=== PATIENT | female | born 1955 | race Caucasian/White ===

== ENCOUNTER 2025-06-29 14:07 | Inpatient (IN) ==
--- NOTE | 2025-06-29 14:30 | Emergency Department Note ---
Impression & Plan Pneumonia, Multiple falls, ESRD (end stage renal disease) on dialysis ED Provider Note NAME: GUANAKO TROTTER AGE: 70 SEX: F : 1955 ARRIVES VIA: Ambulance INFORMANT: Patient ED PROVIDER(S): Tree Rodriguez MD CHIEF COMPLAINT: Weakness PLAN: Disposition: Admit MEDICAL DECISION MAKING: The patient is a pleasant 70-year-old woman with a past medical history of mild cognitive impairment, ESRD on hemodialysis, type 2 diabetes, parkinsonism who presents to the emergency department via EMS from her dialysis center after completing dialysis and being unable to ambulate. The patient presents in the setting of being seen in [facility] emergency department last night for a fall where she had imaging that reportedly demonstrated a compression fracture but presumably not significant enough to require hospitalization and the patient was discharged to go to her scheduled dialysis in the morning. Per staff the patient was incontinent of urinem. The patient is a poor historian but reports that she has not been able to ambulate well for some time. Her sister did arrive and further explained that the patient had recently been admitted to rehab where she was walking 200 feet with a walker without assistance but had to finish rehab early due to insurance issues and since being home a week or so ago has declined and has had several falls. On evaluation the patient is no distress, afebrile with stable vital signs. She appears clinically dry. She did eventually have a fever of 39.4. She demonstrates masked facies. She exhibits slow motor movements and generalized weakness without focal extremity weakness. Head is atraumatic. No midline CTL spine tenderness to palpation or step-offs. EKG without overt acute ischemia. CXR small left pleural effusion and associated consolidation however better characterized on CT imaging demonstrates per my personal preliminary review/interpretation. WBC 25K with neutrophilia and left shift. H/H 7.9/24.7 without recent for comparison. Chemistry without metabolic acidosis. Creatinine 2.4 in setting of end-stage renal disease on dialysis. Lactic acid 1.6, within normal limits. Electrolytes without significant abnormalities. LFTs unremarkable. Initial high-sensitivity 103, nonspecific with repeat 101, stable and in the setting of the patient's end-stage renal disease. Lipase is not elevated. Procalcitonin is elevated at 34.9. UA without evidence of infection. CT of the head, C-spine, chest abdomen pelvis were obtained. Nondisplaced right 9th and 10th rib fractures are noted. No associated hemo or pneumothorax. Bilateral pleural effusions and associated consolidation consistent with pneumonia is seen. Blood cultures were obtained and empiric treatment issued with IV Zosyn and vancomycin. Given the patient's generalized weakness where she is unable to function at home in the setting of her pneumonia patient was referred to the hospitalist service for further management. Case was discussed with KULWINDER Carrington hospitalist, who will evaluate the patient for admission. Further management per admitting team. Triage Nursing notes reviewed and agree them. Prior/external medical records reviewed Vital Signs: reviewed Differential diagnosis: Infection, dehydration, metabolic abnormality, hypo/hyperglycemia, electrolyte disturbance, anemia, hypoxia, cardiac sources, intracerebral event, toxicologic, neurologic, as well as other pathologies. ER treatment provided: See below. Diagnostics interpreted by me: ECG: Normal sinus rhythm, 82 bpm, ST and T wave abnormality, no overt ST elevation or depression, QTc 457, QRS 74. Cardiac Monitoring: An order for continuous cardiac monitoring was placed and demonstrated Normal sinus rhythm, 82 bpm, no ectopy. Laboratory studies: See below Imaging studies: See below Consultation(s): Case was discussed with KULWINDER Carrington hospitalist, who will evaluate the patient for admission. HPI: Per MDM. ROS: See above HPI for pertinent positives & negatives. A total of 10 systems reviewed and were otherwise negative. VITALS:See Below PHYSICAL EXAMINATION: GENERAL: Awake, alert, fatigued/chronically ill-appearing, in no distress HENT: Normocephalic, atraumatic. Oropharynx with dry mucous membranes and otherwise unremarkable. EYES: Normal conjunctiva. Sclera non-icteric. EOMI. No nystamgus. PEARRL. NECK: Supple. No nuchal rigidity. FROM. No JVD. RESPIRATORY: Clear to auscultation. CARDIAC: Regular rate, normal rhythm. Extremities warm and well perfused. Pulses equal. ABDOMEN: Soft, non-distended. No tenderness to palpation. No rebound or guarding. No masses. MUSCULOSKELETAL: Chest examination reveals no tenderness. The back is symmetrical on inspection without obvious abnormality. There is no CVA tenderness to palpation. No joint edema. LOWER EXTREMITIES: Calves are equal size bilaterally and non-tender. No edema. No discoloration. NEURO: Masked facies. Mild confusion. Slow motor movements. Generalized weakness without focal sensory or motor deficits noted. SKIN: No rash or jaundice noted. Tree Rodriguez MD Past Med/Surg History Problem List (Updated 06/30/25 @ 17:55 by Tree Rodriguez MD) Ambulatory dysfunction Anemia due to chronic kidney disease Pneumonia (Acute) B12 deficiency Decreased range of motion of spine Gait disturbance Parkinsonism Cervical spine pain Diabetic retinopathy associated with type 2 diabetes mellitus Elevated TSH ESRD (end stage renal disease) on dialysis (Acute) CAD (coronary artery disease) Diabetes mellitus with insulin therapy Multiple falls (Acute) Memory loss H/O insulin dependent diabetes mellitus Peripheral neuropathy Medical History H/O fracture of hip Status post fall Iron deficiency Anemia H/O: CVA (cerebrovascular accident) 2016 COVID-19 Surgical History Status post hip surgery Right History of ankle surgery History of appendectomy Family History Mother , age 75 Diabetes Colorectal cancer Father , age 82 Heart disease Diabetes Coronary heart disease Brother Heart disease Social History Smoking Status: Unknown if ever smoked Hx Alcohol Use: No Hx Substance Use: No Preferred Language: Mohawk Communication Ability: Impaired Gis Administrator Required: No Beliefs That Will Affect Care: None marital status: Current Living Situation: Spouse current occupational status: retired 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 Verified 06/29/25 19:14 Home Meds Home Medications Medication Instructions Recorded Confirmed carvedilol 25 mg tablet 25 mg PO BID 08/12/24 06/29/25 clopidogrel 75 mg tablet (Plavix) 75 mg PO DAILY 08/12/24 06/29/25 ezetimibe 10 mg tablet (Zetia) 10 mg PO DAILY 08/12/24 06/29/25 famotidine 40 mg tablet 40 mg PO DAILY 08/12/24 06/29/25 rosuvastatin 10 mg tablet 10 mg PO DAILY 08/12/24 06/29/25 sertraline 50 mg tablet 50 mg PO DAILY 08/12/24 06/29/25 aspirin 81 mg tablet,delayed 81 mg PO DAILY 12/30/24 06/29/25 release (Adult Low Dose Aspirin) calcifediol 30 mcg capsule,24 30 mcg PO DAILY 12/30/24 06/29/25 hr,extended release (Rayaldee) sacubitril 24 mg-valsartan 26 mg 1 tab PO BID 12/30/24 06/29/25 tablet (Entresto) flash glucose sensor (FreeStyle 03/01/25 03/01/25 [place] 2 Sensor kit) amlodipine 2.5 mg tablet 2.5 mg PO DAILY 06/29/25 06/29/25 gabapentin 100 mg tablet 100 mg PO DAILY 06/29/25 06/29/25 insulin degludec 100 unit/mL (3 16 unit subcut DAILY 06/29/25 06/29/25 mL) subcutaneous pen (Tresiba FlexTouch U-100 insulin) vitamin B complex-vitamin C-folic 1 tab PO DAILY 06/29/25 06/29/25 acid 0.8 mg tablet (Karissa-Kassidy) Results & Data (ED) Vital Signs Vital Signs - 24 hr 06/29/25 14:27 06/29/25 14:27 06/29/25 14:54 Temperature 36.8 C Temperature Source Oral Pulse Rate 78 78 Pulse Rate [Apical] 78 Respiratory Rate 20 18 Respiratory Effort / Characteristics Non-Labored Non-Labored Respiratory Depth Normal Normal Blood Pressure 123/83 Blood Pressure [Left Arm] 123/83 Blood Pressure Mean 96 Blood Pressure Mean [Left Arm] 96 Pulse Oximetry 90 90 Oxygen Delivery Method Room Air Room Air Oxygen Flow Rate Sepsis Recent Fever Within 48 Hours No Sepsis New/Unexplained Change in Mental Status No Sepsis Action Taken by Nursing No Action Required 06/29/25 16:00 06/29/25 16:26 06/29/25 17:00 Temperature 39.4 C H Temperature Source Oral Pulse Rate Pulse Rate [Apical] 80 74 Respiratory Rate 20 16 Respiratory Effort / Characteristics Respiratory Depth Blood Pressure Blood Pressure [Left Arm] 121/83 120/45 L Blood Pressure Mean Blood Pressure Mean [Left Arm] 95 70 Pulse Oximetry 95 96 Oxygen Delivery Method Nasal Cannula Nasal Cannula Oxygen Flow Rate 2 2 Sepsis Recent Fever Within 48 Hours Sepsis New/Unexplained Change in Mental Status Sepsis Action Taken by Nursing Laboratory Data Attestation: I reviewed the patient's lab results. 06/30/25 05:46 06/30/25 05:46 Lab Results 06/29/25 06/29/25 Range/Units 14:50 15:58 WBC 25.02 H (4.8-10.8) K/ul RBC 2.62 L (4.20-5.40) M/uL Hgb 7.9 L (12.0-16.0) g/dl Hct 24.7 L (37.0-47.0) % MCV 94.3 (80.0-100.0) fL MCH 30.2 (25.0-34.0) pg MCHC 32.0 (32.0-36.0) g/dL RDW Std Deviation 45.2 (36.4-46.3) fL RDW Coeff of Evelyn 13.2 (11.5-14.5) % Plt Count 183 (130-400) K/uL MPV 10.7 (9.4-12.4) fL Immature Gran % (Auto) 1.4 % Neut % (Auto) 93.0 % Lymph % (Auto) 1.5 % Oxford % (Auto) 3.9 % Eos % (Auto) 0.0 % Baso % (Auto) 0.2 % Neut # (Auto) 23.28 H (1.40-6.50) K/uL Lymph # (Auto) 0.37 L (1.20-3.40) K/uL [place] # (Auto) 0.97 H (0.11-0.59) K/uL Eos # (Auto) 0.00 (0.00-0.50) K/uL Baso # (Auto) 0.05 (0.00-0.20) K/uL Immature Gran # (Auto) 0.35 H (0.01-0.20) K/uL Polychromasia 1+ PT 11.9 (9.0-12.0) Seconds INR 1.1 (0.9-1.1) Sodium 136 (136-145) mmol/L Potassium 4.1 (3.5-5.1) mmol/L Chloride 97 L (98-107) mmol/L Carbon Dioxide 29 (21-32) mmol/L Anion Gap 10 (3-11) BUN 13 (6-23) mg/dl Creatinine 2.41 H (0.6-1.2) mg/dl Est Cr Clr Drug Dosing 19.3 ml/min eGFR 20.96 BUN/Creatinine Ratio 5.4 L (10-20) Glucose 200 H (70-99(Fasting)) mg/dl Lactate 1.6 (0.4-2.0) mmol/L Calcium 8.7 (8.6-10.3) mg/dl Phosphorus 2.6 (2.5-4.9) mg/dl Magnesium 1.9 (1.7-2.4) mg/dl Total Bilirubin 0.8 (0.2-1.0) mg/dl Direct Bilirubin 0.2 (0-0.2) mg/dl AST 23 (13-39) U/L ALT 14 (7-52) U/L Alkaline Phosphatase 129 H (34-104) U/L Total Creatine Kinase 188 (26-192) U/L Troponin I High Sens 103.9 H* (0-14) pg/ml Total Protein 6.7 (6.0-8.3) gm/dl Albumin 3.6 (3.4-5.0) gm/dl Globulin 3.1 (2.5-4.0) gm/dl Albumin/Globulin Ratio 1.2 (0.9-2) Lipase < 3 L (11-82) U/L Procalcitonin 34.90 H (0-0.5) ng/ml Administered Medications Acetaminophen (Acetaminophen 325 Mg Tab) 650 mg PO Q6H PRN PRN Reason: Pain or Fever Stop: 07/30/25 03:42 Last Admin: 06/30/25 11:13 Dose: 650 mg Documented By: Admin: 06/30/25 03:54 Dose: 650 mg Documented By: SHAKA Aspirin (Aspirin 81 Mg Ectab) 81 mg PO DAILY [facility] Stop: 07/30/25 08:59 Last Admin: 06/30/25 08:37 Dose: 81 mg Documented By: PAULINE Carvedilol (Carvedilol 12.5 Mg Tab) 12.5 mg PO BIDM [facility] Stop: 07/29/25 20:59 Last Admin: 06/30/25 17:15 Dose: 12.5 mg Documented By: Admin: 06/30/25 08:37 Dose: 12.5 mg Documented By: Admin: 06/29/25 21:51 Dose: 12.5 mg Documented By: SHAKA Clopidogrel Bisulfate (Clopidogrel Bisulfate 75 Mg Tab) 75 mg PO DAILY [facility] Stop: 07/30/25 08:59 Last Admin: 06/30/25 08:37 Dose: 75 mg Documented By: PAULINE Ezetimibe (Ezetimibe 10 Mg Tab) 10 mg PO DAILY [facility] Stop: 07/30/25 08:59 Last Admin: 06/30/25 08:38 Dose: 10 mg Documented By: PAULINE Famotidine (Famotidine 40 Mg Tablet) 40 mg PO DAILY [facility] Stop: 07/30/25 08:59 Last Admin: 06/30/25 08:37 Dose: 40 mg Documented By: PAULINE Heparin Sodium (Porcine) (Heparin Sod 5,000 Unit/0.5 Ml Vial) 5,000 units SQ Q12 [facility] Stop: 07/30/25 08:59 Last Admin: 06/30/25 08:38 Dose: 5,000 units Documented By: PAULINE Piperacillin Sod/Tazobactam Sod (Zosyn) 4.5 gm in 100 mls @ 25 mls/hr IV Q12H [facility]; Protocol Stop: 07/07/25 04:59 Last Admin: 06/30/25 17:15 Dose: 25 mls/hr Documented By: Infusion: 06/30/25 08:29 Dose: Infused Documented By: Admin: 06/30/25 04:41 Dose: 25 mls/hr Documented By: SHAKA Insulin Aspart (Insulin Aspart Per Unit Charge) 0 units SC ACHS [facility] Stop: 07/29/25 20:59 Last Admin: 06/30/25 17:07 Dose: 5 units Documented By: PAULINE Co-signed By: IDALIA Admin: 06/30/25 12:35 Dose: 8 units Documented By: PAULINE Co-signed By: Admin: 06/30/25 08:34 Dose: 4 units Documented By: PAULINE Co-signed By: Admin: 06/29/25 21:51 Dose: 3 units Documented By: SHAKA Co-signed By: PEYTON Miscellaneous (Order Awaiting Action--Calcifediol Xr 30 Mcg Capsule,Extended Release 24 Hr)) 1 each N/A QS [facility] Stop: 07/30/25 00:00 Last Admin: 06/30/25 16:03 Dose: Not Given Documented By: Admin: 06/30/25 08:22 Dose: Not Given Documented By: Admin: 06/30/25 01:01 Dose: Not Given Documented By: SHAKA Multivitamins (Multivitamin Tab) 1 tab PO QAM [facility] Stop: 07/30/25 08:59 Last Admin: 06/30/25 08:38 Dose: 1 tab Documented By: PAULINE Rosuvastatin Calcium (Rosuvastatin Calcium 10 Mg Tab) 10 mg PO DAILY [facility] Stop: 07/30/25 08:59 Last Admin: 06/30/25 08:38 Dose: 10 mg Documented By: PAULINE Sacubitril/Valsartan (Valsartan/Sacubitril 26/24mg Tab) 1 tab PO BID [facility] Stop: 07/29/25 20:59 Last Admin: 06/30/25 08:37 Dose: 1 tab Documented By: Admin: 06/29/25 21:51 Dose: 1 tab Documented By: SHAKA Sertraline HCl (Sertraline Hcl 50 Mg Tablet) 50 mg PO DAILY [facility] Stop: 07/30/25 08:59 Last Admin: 06/30/25 08:37 Dose: 50 mg Documented By: PAULINE Discontinued Medications Acetaminophen (Acetaminophen 500 Mg Tab) 500 mg PO NOW STA Stop: 06/30/25 05:01 Last Admin: 06/30/25 05:18 Dose: 500 mg Documented By: SHAKA Piperacillin Sod/Tazobactam Sod (Zosyn) 4.5 gm in 100 mls @ 200 mls/hr IV NOW ONE; Protocol Stop: 06/29/25 16:16 Last Infusion: 06/29/25 18:34 Dose: Infused Documented By: zander Admin: 06/29/25 16:41 Dose: 200 mls/hr Documented By: CINDY Vancomycin HCl 1,750 mg/ (Sodium Chloride) 535 mls @ 200 mls/hr IV NOW ONE Stop: 06/29/25 18:27 Last Infusion: 06/29/25 19:56 Dose: Infused Documented By: kian Admin: 06/29/25 17:06 Dose: 200 mls/hr Documented By: CINDY Acetaminophen (Ofirmev) 1,000 mg in 100 mls @ 400 mls/hr IV NOW STA Stop: 06/29/25 16:41 Last Infusion: 06/29/25 16:55 Dose: Infused Documented By: Admin: 06/29/25 16:40 Dose: 400 mls/hr Documented By: CINDY Vancomycin HCl 500 mg/ Sodium (Chloride) 110 mls @ 200 mls/hr IV NOW ONE Stop: 06/30/25 12:17 Last Infusion: 06/30/25 13:12 Dose: Infused Documented By: Admin: 06/30/25 12:36 Dose: 200 mls/hr Documented By: PAULINE Insulin Glargine (Lantus Per Unit Charge) 12 units SC HS [facility] Stop: 07/29/25 20:59 Last Admin: 06/29/25 21:51 Dose: 12 units Documented By: SHAKA Co-signed By: PEYTON Levalbuterol HCl (Levalbuterol 1.25 Mg/3 Ml Neb) 1.25 mg NEB Q8R [facility] Stop: 07/29/25 22:59 Last Admin: 06/30/25 07:32 Dose: 1.25 mg Documented By: Admin: 06/29/25 22:08 Dose: 1.25 mg Documented By: TMP Imaging Data Radiologist's Impression: Chest X-Ray 06/29/25 14:28 XR chest 1V portable CLINICAL HISTORY: weakness, pain fall COMPARISON STUDY: None FINDINGS: Right dialysis catheter tip is just above the cavoatrial junction. Left cardiac loop recorder is present. There is moderate cardiomegaly without pulmonary vascular congestion. There is mild opacity at the left lung base with blunting of the left costophrenic angle. There is a possible nondisplaced fracture versus artifact laterally at the left mid rib. No pneumothorax seen. IMPRESSION: 1. Possible nondisplaced left rib fracture with no pneumothorax. 2. Small left pleural effusion and associated mild consolidation left lung base. ACT 112: Negative or not required by law. Electronically signed by: Inocencio Olsen M.D. 06/29/2025 3:13 PM Pelvis X-Ray 06/29/25 14:29 XR pelvis 1-2V routine CLINICAL HISTORY: pain fall COMPARISON: None FINDINGS: There is skinfold artifact. Right hip prosthesis shows no hardware complication. No fracture or dislocation seen at the pelvis or hips. IMPRESSION: No fracture seen. ACT 112: Negative or not required by law. Electronically signed by: Inocencio Olsen M.D. 06/29/2025 3:14 PM Abdomen/Pelvis CT 06/29/25 14:33 CT OF THE ABDOMEN AND PELVIS WITHOUT CONTRAST CLINICAL HISTORY: weakness, pain, fall COMPARISON STUDY: Pelvis radiograph performed earlier today. TECHNIQUE: Axial images of the abdomen and pelvis were obtained without IV contrast. Images were reviewed in the axial, sagittal, and coronal planes. Automated exposure control was utilized for the study. A dose lowering technique was utilized adhering to the principles of ALARA. FINDINGS: Please note that the chest CT will be reported separately. There are acute nondisplaced fractures of the lateral right ninth and 10th ribs. There is no pneumothorax. There are small bilateral pleural fusions. Moderate lower lobe and lingular opacities are present. There is a 1.9 cm nodular density within the lower outer quadrant of the right breast on image 32 of 344. Water attenuation 1.9 cm right breast lesion favors a cyst. Evaluation of the abdomen and pelvis is suboptimal on this unenhanced exam. No hemoperitoneum or pneumoperitoneum is present. There is no evidence for traumatic injury to the liver, spleen, adrenal glands, kidneys or pancreas. There is mild splenomegaly. There is a gallstone within the gallbladder. There is no convincing evidence for acute cholecystitis. Calcified fibroid is incidentally noted. No evidence for a bowel obstruction. No bowel wall thickening is identified on unenhanced exam. There are no fluid collections. Right hip arthroplasty is intact. No acute hip fractures are present. There are no fractures within the pelvis. L1 kyphoplasty is noted. There are no acute lumbar spine fractures. There is trace ascites within the pelvis. IMPRESSION: 1. Acute nondisplaced lateral right ninth and 10th rib fractures. 2. No acute traumatic findings within the abdomen or pelvis although evaluation suboptimal given lack of contrast. 3. Small bilateral pleural effusions. Bilateral lower lobe and lingular opacities favor pneumonia or aspiration pneumonia. Atelectasis could appear similar. 4. 1.9 cm nodular density within the lower outer quadrant right breast. This may represent fibroglandular tissue however a breast mass could appear similar. Nonemergent outpatient mammogram and ultrasound are recommended. 5. Cholelithiasis. 6. L1 kyphoplasty. No acute lumbar spine fractures. 7. Trace pelvic ascites. ACT 112: Positive. There are findings on this exam that require communication between the performing entity and the patient following Patient Test Result Information Act ([place] Act 112) guidelines. Electronically signed by: Brandyn Luna M.D. 06/29/2025 4:[address] 06/29/25 14:33 CT cervical spine wo con CLINICAL HISTORY: 70 years-old Female with weakness, pain, fall. Acute neck pain status post fall COMPARISON: CT head same, MR cervical spine 05/12/2020 TECHNIQUE: Multiple axial CT images of the cervical spine were obtained without contrast. A dose lowering technique was utilized adhering to the principles of ALARA. FINDINGS: Moderate multilevel degenerative disc disease and facet arthropathy redemonstrated. Chronic deformity noted involving the anterior arch C1. Developmental incomplete bony fusion involving the posterior arch of C1. There is mild kyphotic curvature centered at C4-C5. No acute fracture or subluxation identified. Multilevel neural foraminal narrowing, suboptimally assessed by CT technique. Partially imaged right IJ dual-lumen catheter. The cervical soft tissues appear unremarkable. No pneumothorax. Intralobular septal thickening at the lung apices suggestive of pulmonary edema. IMPRESSION: No acute cervical spine fracture or subluxation identified. ACT 112: Negative or not required by law. The above report was generated using voice recognition software. It may contain grammatical, syntax or spelling errors. Electronically signed by: Leonardo Burrell M.D. 06/29/2025 3:[address] 06/29/25 14:33 CT chest diagnostic wo con CT DOSE: [id number] CLINICAL HISTORY: weakness, pain, fall. TECHNIQUE: Multiaxial CT images of the chest were performed without contrast. A dose lowering technique was utilized adhering to the principles of ALARA. COMPARISON STUDY: None FINDINGS: There are trace dependent bilateral pleural effusions. There is adjacent patchy lower lobe consolidation consistent with pneumonia. There is no pneumothorax. No mediastinal hematoma. No pericardial effusion. There are diffuse coronary artery calcifications. There is osteopenia. There is an acute nondisplaced fracture laterally at the right ninth rib. No other acute fracture seen at the visualized osseous structures. There are a few old healed left-sided rib fractures. There is prior kyphoplasty at L1 with vertebral body height loss. IMPRESSION: 1. Acute fracture right ninth rib with no pneumothorax. 2. Bilateral lower lobe pneumonia with trace pleural effusions. ACT 112: Negative or not required by law. Electronically signed by: Inocencio Olsen M.D. 06/29/2025 3:[address] 06/29/25 14:33 CT head/brain wo con CLINICAL HISTORY: 70 years-old Female with weakness, pain, fall. Acute weakness with head injury status post fall TECHNIQUE: Multiple axial CT images of the head were obtained without contrast. A dose lowering technique was utilized adhering to the principles of ALARA. COMPARISON: CT cervical spine same day, brain MRI 05/12/2025 FINDINGS: No acute intracranial hemorrhage, midline shift, intracranial mass, hydrocephalus, territorial ischemia or abnormal extra-axial collection. Involutional changes with chronic microvascular ischemic disease. The calvarium is intact. Chronic deformity of the anterior arch C1. CT cervical spine dictated separately. The paranasal sinuses, mastoid air cells, and middle ear cavities are clear. IMPRESSION: No acute intracranial abnormality or calvarial fracture. ACT 112: Negative or not required by law. The above report was generated using voice recognition software. It may contain grammatical, syntax or spelling errors. Electronically signed by: Leonardo Burrell M.D. 06/29/2025 3:40 PM Discharge Plan Visit Data Chief Complaint: Fall Stated Complaint: fall ED Provider: Tree Rodriguez Discharge Problem: Pneumonia, Multiple falls, ESRD (end stage renal disease) on dialysis Patient Disposition: Admitted As Inpatient Condition: Serious Discharge Instructions Interventions: ED Discharge Assessment Last Done: 06/29/25 20:15 Discharge Problem: Pneumonia Qualifiers: Pneumonia type: due to unspecified organism Laterality: unspecified laterality Lung location: unspecified part of lung Qualified Code(s): J18.9 - Pneumonia, unspecified organism
--- NOTE | 2025-06-29 15:14 | XRay Report ---
XR chest 1V portable CLINICAL HISTORY: weakness, pain fall COMPARISON STUDY: None FINDINGS: Right dialysis catheter tip is just above the cavoatrial junction. Left cardiac loop record er is present. There is moderate cardiomegaly without pulmonary vascular congestion. There is mild op acity at the left lung base with blunting of the left costophrenic angle. There is a possible nondisp laced fracture versus artifact laterally at the left mid rib. No pneumothorax seen. IMPRESSION: 1. Possible nondisplaced left rib fracture with no pneumothorax. 2. Small left pleural effusion and associated mild consolidation left lung base. ACT 112: Negative or not required by law. Electronically signed by: Inocencio Olsen M.D. 06/29/2025 3:13 PM
--- NOTE | 2025-06-29 15:15 | XRay Report ---
XR pelvis 1-2V routine CLINICAL HISTORY: pain fall COMPARISON: None FINDINGS: There is skinfold artifact. Right hip prosthesis shows no hardware complication. No fractu re or dislocation seen at the pelvis or hips. IMPRESSION: No fracture seen. ACT 112: Negative or not required by law. Electronically signed by: Inocencio Olsen M.D. 06/29/2025 3:14 PM
[2025-06-29 15:25] LABS: Anion Gap 10 (3-11); Blood Urea Nitrogen 13 mg/dl (6-23); Calcium 8.7 mg/dl (8.6-10.3); Carbon Dioxide 29 mmol/L (21-32); Chloride 97 mmol/L (98-107); Creatinine Clr Calc Pharmacy 19.3 ml/min; Glucose 200 mg/dl (70-99(Fasting)); Potassium 4.1 mmol/L (3.5-5.1); Sodium 136 mmol/L (136-145)
[2025-06-29 15:28] LABS: Alanine Aminotransferase 14 U/L (7-52); Albumin Globulin Ratio 1.2 (0.9-2); Albumin Level 3.6 gm/dl (3.4-5.0); Alkaline Phosphatase 129 U/L (34-104); Bilirubin,Total 0.8 mg/dl (0.2-1.0); Creatine Kinase 188 U/L (26-192); Globulin 3.1 gm/dl (2.5-4.0); Lipase < 3 U/L (11-82); Magnesium 1.9 mg/dl (1.7-2.4); Total Protein 6.7 gm/dl (6.0-8.3)
--- NOTE | 2025-06-29 15:39 | CT Scan Report ---
CT chest diagnostic [facility] CT DOSE: 1673 CLINICAL HISTORY: weakness, pain, fall. TECHNIQUE: Multiaxial CT images of the chest were performed without contrast. A dose lowering techni que was utilized adhering to the principles of ALARA. COMPARISON STUDY: None FINDINGS: There are trace dependent bilateral pleural effusions. There is adjacent patchy lower lobe consolidation consistent with pneumonia. There is no pneumothorax. No mediastinal hematoma. No perica rdial effusion. There are diffuse coronary artery calcifications. There is osteopenia. There is an ac [place] nondisplaced fracture laterally at the right ninth rib. No other acute fracture seen at the visua lized osseous structures. There are a few old healed left-sided rib fractures. There is prior kyphopl asty at L1 with vertebral body height loss. IMPRESSION: 1. Acute fracture right ninth rib with no pneumothorax. 2. Bilateral lower lobe pneumonia with trace pleural effusions. ACT 112: Negative or not required by law. Electronically signed by: Inocencio Olsen M.D. 06/29/2025 3:37 PM
[2025-06-29 15:40] LABS: Hematocrit (blood only) 24.7 % (37.0-47.0); Hemoglobin 7.9 g/dl (12.0-16.0); INR 1.1 (0.9-1.1); Immature Granulocytes # (auto) 0.35 K/uL (0.01-0.20); Immature Granulocytes % (auto) 1.4 %; Mean Corpuscular Hemoglobin 30.2 pg (25.0-34.0); Mean Corpuscular Volume 94.3 fL (80.0-100.0); Platelet Count 183 K/uL (130-400); Polychromasia 1+; Prothrombin Time 11.9 Seconds (9.0-12.0); RDW Standard Deviation 45.2 fL (36.4-46.3); Red Blood Count 2.62 M/uL (4.20-5.40); White Blood Count 25.02 K/ul (4.8-10.8)
--- NOTE | 2025-06-29 15:41 | CT Scan Report ---
CT head/brain wo con CLINICAL HISTORY: 70 years-old Female with weakness, pain, fall. Acute weakness with head injury sta tus post fall TECHNIQUE: Multiple axial CT images of the head were obtained without contrast. A dose lowering tech nique was utilized adhering to the principles of ALARA. COMPARISON: CT cervical spine same day, brain MRI 05/12/2025 FINDINGS: No acute intracranial hemorrhage, midline shift, intracranial mass, hydrocephalus, territorial ischem ia or abnormal extra-axial collection. Involutional changes with chronic microvascular ischemic disea se. The calvarium is intact. Chronic deformity of the anterior arch C1. CT cervical spine dictated separa tely. The paranasal sinuses, mastoid air cells, and middle ear cavities are clear. IMPRESSION: No acute intracranial abnormality or calvarial fracture. ACT 112: Negative or not required by law. The above report was generated using voice recognition software. It may contain grammatical, syntax o r spelling errors. Electronically signed by: Leonardo Burrell M.D. 06/29/2025 3:40 PM
--- NOTE | 2025-06-29 15:44 | CT Scan Report ---
CT cervical spine wo con CLINICAL HISTORY: 70 years-old Female with weakness, pain, fall. Acute neck pain status post fall COMPARISON: CT head same, MR cervical spine 05/12/2020 TECHNIQUE: Multiple axial CT images of the cervical spine were obtained without contrast. A dose low ering technique was utilized adhering to the principles of ALARA. FINDINGS: Moderate multilevel degenerative disc disease and facet arthropathy redemonstrated. Chronic deformity noted involving the anterior arch C1. Developmental incomplete bony fusion involving the p osterior arch of C1. There is mild kyphotic curvature centered at C4-C5. No acute fracture or subluxa tion identified. Multilevel neural foraminal narrowing, suboptimally assessed by CT technique. Partially imaged right IJ dual-lumen catheter. The cervical soft tissues appear unremarkable. No pne umothorax. Intralobular septal thickening at the lung apices suggestive of pulmonary edema. IMPRESSION: No acute cervical spine fracture or subluxation identified. ACT 112: Negative or not required by law. The above report was generated using voice recognition software. It may contain grammatical, syntax o r spelling errors. Electronically signed by: Leonardo Burrell M.D. 06/29/2025 3:43 PM
[2025-06-29] MEDS ORDERED: VANCOMYCIN CONSULT ACTIVE PRN ×2 (15:47→16:55)
--- NOTE | 2025-06-29 16:11 | CT Scan Report ---
CT OF THE ABDOMEN AND PELVIS WITHOUT CONTRAST CLINICAL HISTORY: weakness, pain, fall COMPARISON STUDY: Pelvis radiograph performed earlier today. TECHNIQUE: Axial images of the abdomen and pelvis were obtained without IV contrast. Images were revi ewed in the axial, sagittal, and coronal planes. Automated exposure control was utilized for the bruna dy. A dose lowering technique was utilized adhering to the principles of ALARA. FINDINGS: Please note that the chest CT will be reported separately. There are acute nondisplaced fra ctures of the lateral right ninth and 10th ribs. There is no pneumothorax. There are small bilateral pleural fusions. Moderate lower lobe and lingular opacities are present. There is a 1.9 cm nodular de nsity within the lower outer quadrant of the right breast on image 32 of 344. Water attenuation 1.9 c m right breast lesion favors a cyst. Evaluation of the abdomen and pelvis is suboptimal on this unenh anced exam. No hemoperitoneum or pneumoperitoneum is present. There is no evidence for traumatic inju ry to the liver, spleen, adrenal glands, kidneys or pancreas. There is mild splenomegaly. There is a gallstone within the gallbladder. There is no convincing evidence for acute cholecystitis. Calcified fibroid is incidentally noted. No evidence for a bowel obstruction. No bowel wall thickening is ident ified on unenhanced exam. There are no fluid collections. Right hip arthroplasty is intact. No acute hip fractures are present. There are no fractures within the pelvis. L1 kyphoplasty is noted. There a re no acute lumbar spine fractures. There is trace ascites within the pelvis. IMPRESSION: 1. Acute nondisplaced lateral right ninth and 10th rib fractures. 2. No acute traumatic findings within the abdomen or pelvis although evaluation suboptimal given lack of contrast. 3. Small bilateral pleural effusions. Bilateral lower lobe and lingular opacities favor pneumonia or aspiration pneumonia. Atelectasis could appear similar. 4. 1.9 cm nodular density within the lower outer quadrant right breast. This may represent fibrogland ular tissue however a breast mass could appear similar. Nonemergent outpatient mammogram and ultrasou nd are recommended. 5. Cholelithiasis. 6. L1 kyphoplasty. No acute lumbar spine fractures. 7. Trace pelvic ascites. ACT 112: Positive. There are findings on this exam that require communication between the performing entity and the patient following Patient Test Result Information Act ([place] Act 112) guidelines. Electronically signed by: Brandyn Luna M.D. 06/29/2025 4:10 PM
[2025-06-29] MEDS: ACETAMINOPHEN 1,000 MG/100 ML VIAL IV STA (16:40)
[2025-06-29] MEDS: PIPERACILLIN/TAZOBACTAM 4.5 GM/100 ML BAG IV ONE (16:41)
[2025-06-29] MEDS: VANCOMYCIN HCL 1,750 MG in SODIUM CHLORIDE 0.9% 500 ML IV ONE (17:06)
--- NOTE | 2025-06-29 17:10 | History & Physical Report ---
Date of Service June 29, 2025 Assessment & Plan (1) Pneumonia: (2) CAD (coronary artery disease): (3) ESRD (end stage renal disease) on dialysis: (4) Diabetes mellitus with insulin therapy: (5) Memory loss: Plan Sepsis in a 70 yo female with Bilateral pneumonia. Patient was recetly discharged from outside facility. Patient will be placed on broad coverage: zosyn and vancomycin. Will obtain sputum culture and blood cultures. will admit to PCU. ESRD on dialysis Her does not know Nephrology group will consult [place] [facility] for dialysis CAD will resume home meds DM2 with hyperglycemia will place on carb ratio consult glycemic control History of Present Illness Chief Complaint: Weakness Primary Care Provider: Natalio Valero 70 yo female with PMH of ESRD on dialysis, CAD, and IDDM arrives for worsening generalized weakness. Patient is a poor historian and her sister Racheal helped provide information. Patient was recently discharged form outside facility for weakness and hypoglycemia. Patient spent a few weeks at rehab and was discharged a week ago. Patient has sustained multiple falls at home. Patient went to the [facility] ED for foot pain but was sent home. As patient continued to feel weak, patient was brought to our facility Allergies Allergy/AdvReac Type Severity Reaction Status Date / Time atorvastatin [From Lipitor] AdvReac . Verified 06/29/25 19:14 Home Medications Medication Instructions Recorded Confirmed Type carvedilol 25 mg tablet 25 mg PO BID 08/12/24 06/29/25 History clopidogrel 75 mg tablet (Plavix) 75 mg PO DAILY 08/12/24 06/29/25 History ezetimibe 10 mg tablet (Zetia) 10 mg PO DAILY 08/12/24 06/29/25 History famotidine 40 mg tablet 40 mg PO DAILY 08/12/24 06/29/25 History rosuvastatin 10 mg tablet 10 mg PO DAILY 08/12/24 06/29/25 History sertraline 50 mg tablet 50 mg PO DAILY 08/12/24 06/29/25 History aspirin 81 mg tablet,delayed 81 mg PO DAILY 12/30/24 06/29/25 History release (Adult Low Dose Aspirin) calcifediol 30 mcg capsule,24 30 mcg PO DAILY 12/30/24 06/29/25 History hr,extended release (Rayaldee) sacubitril 24 mg-valsartan 26 mg 1 tab PO BID 12/30/24 06/29/25 History tablet (Entresto) flash glucose sensor (FreeStyle 03/01/25 03/01/25 History Ju[place] 2 Sensor kit) amlodipine 2.5 mg tablet 2.5 mg PO DAILY 06/29/25 06/29/25 History gabapentin 100 mg tablet 100 mg PO DAILY 06/29/25 06/29/25 History insulin degludec 100 unit/mL (3 16 unit subcut DAILY 06/29/25 06/29/25 History mL) subcutaneous pen (Tresiba FlexTouch U-100 insulin) vitamin B complex-vitamin C-folic 1 tab PO DAILY 06/29/25 06/29/25 History acid 0.8 mg tablet (Karissa-Kassidy) Past Med/Surg History Problem List (Updated 06/30/25 @ 10:17 by Luiza Reeder MD) Ambulatory dysfunction Anemia due to chronic kidney disease Pneumonia (Acute) B12 deficiency Decreased range of motion of spine Gait disturbance Parkinsonism Cervical spine pain Diabetic retinopathy associated with type 2 diabetes mellitus Elevated TSH ESRD (end stage renal disease) on dialysis (Acute) CAD (coronary artery disease) Diabetes mellitus with insulin therapy Multiple falls (Acute) Memory loss H/O insulin dependent diabetes mellitus Peripheral neuropathy Medical History H/O fracture of hip Status post fall Iron deficiency Anemia H/O: CVA (cerebrovascular accident) 2016 COVID-19 Surgical History Status post hip surgery Right History of ankle surgery History of appendectomy Family History Mother , age 75 Diabetes Colorectal cancer Father , age 82 Heart disease Diabetes Coronary heart disease Brother Heart disease Social History Smoking Status: Unknown if ever smoked Hx Alcohol Use: No Hx Substance Use: No Preferred Language: Italian Communication Ability: Effective Nuclear Pharmacist Required: No Beliefs That Will Affect Care: None marital status: Current Living Situation: Spouse current occupational status: retired 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60, 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 Feels Safe at Home: Yes Assistive Devices: Glasses and Walker Review of Systems Review of Systems: Unobtainable due to cognitive status Physical Exam Constitutional: WD/WN, vitals as above + ill appearing and + frail appearing Eyes: PERRL, conjunctivae normal, anicteric sclerae ENMT: external ear and nose normal, oropharynx normal Neck: trachea midline, no thyromegaly Respiratory: + uses accessory muscles Auscultation : + rhonchi Cardiovascular: RRR, no murmur, no edema Gastrointestinal (Abdomen): normal bowel sounds, soft, nontender, no hepatosplenomegaly Musculoskeletal: no cyanosis or clubbing, extremities motor strength 5/5 Skin: no rashes, warm and dry Neurologic: PERRL, EOMI, accommodation nl, no face palsy, no dysarthria Psychiatric: Orientation: alert; + not oriented to person, + not oriented to place and + not oriented to time Lymphatic: no cervical or axillary lymphadenopathy Results & Data Results & Data Vital Signs (Past 12 Hours) Vital Signs Temp Pulse Pulse Resp BP BP Pulse Ox 06/29/25 16:26 39.4 C H 06/29/25 16:00 80 20 121/83 95 06/29/25 14:54 78 06/29/25 14:27 78 18 123/83 90 06/29/25 14:27 36.8 C 78 20 123/83 90 O2 Del Method O2 Flow Rate 06/29/25 16:26 06/29/25 16:00 Nasal Cannula 2 06/29/25 14:54 06/29/25 14:27 Room Air 06/29/25 14:27 Room Air PG Care Time/CCT Total # of Minutes Spent Total Time Spent with Patient: Total time spent is greater than 50% in coordination of care (as documented) at patient's floor/unit and/or counseling patient: Coding Level of Care Code 31880 INT INP/OBS CARE 3/75MIN Diagnoses Pneumonia J18.9 CAD (coronary artery disease) I25.10 ESRD (end stage renal disease) on dialysis N18.6; Z99.2 Diabetes mellitus with insulin therapy E11.9; Z79.4 Memory loss R41.3
[2025-06-29] MEDS ORDERED: PHARMACY GLYCEMIC MGMT CONSULT PRN (17:15)
[2025-06-29] MEDS ORDERED: GLUCOSE 10 TAB/TUBE PO PRN (17:16)
[2025-06-29] MEDS ORDERED: GLUCAGON FOR INJ 1 MG VIAL SQ PRN (17:16)
[2025-06-29] MEDS ORDERED: DEXTROSE 50% 50 ML SYRINGE IV PRN (17:16)
[2025-06-29] MEDS ORDERED: CARBOHYDRATES FOR HYPOGLYCEMIA PO PRN (17:16)
[2025-06-29] MEDS ORDERED: GLUCOSE 40% GEL 15 GM TUBE PO PRN (17:16)
[2025-06-29 17:44] LABS: Appearance Urine Cloudy (Clear); Glucose Urine UA Negative (Negative); RBC Urine Automated 0-2 /hpf (0-2); WBC Urine Automated 21-50 /hpf (0-5)
[2025-06-29 18:05] LABS: Bacteria Urine Automated 3+ (None Seen); Cast Urine Automated 0-2 /lpf (0-2)
--- NOTE | 2025-06-29 18:17 | Electrocardiogram Report ---
Test Reason : Blood Pressure : */* mmHG Vent. Rate : 82 BPM Atrial Rate : 82 BPM P-R Int : 124 ms QRS Dur : 74 ms QT Int : 392 ms P-R-T Axes : 61 57 212 degrees QTcB Int : 457 ms Normal sinus rhythm Abnormal ECG No previous ECGs available Confirmed by Ruben Marroquin ([id number]) on 06/29/2025 6:16:52 PM Referred By: REFERRED SELF Confirmed By: Ruben Marroquin
[2025-06-29] MEDS: VALSARTAN/SACUBITRIL 26/24MG TAB PO SCH (21:51)
[2025-06-29] MEDS: INSULIN ASPART PER UNIT CHARGE SC SCH (21:51)
[2025-06-29] MEDS: LANTUS PER UNIT CHARGE SC SCH (21:51)
[2025-06-29] MEDS: LEVALBUTEROL 1.25 MG/3 ML NEB NEB SCH (22:08)
[2025-06-30] MEDS: ACETAMINOPHEN 325 MG TAB PO PRN (03:54)
[2025-06-30] MEDS: PIPERACILLIN/TAZOBACTAM 4.5 GM/100 ML BAG IV SCH (04:41)
[2025-06-30] MEDS: ACETAMINOPHEN 500 MG TAB PO STA (05:18)
[2025-06-30 07:04] LABS: Anion Gap 11.0 (3-11); Blood Urea Nitrogen 22.0 mg/dl (6-23); Calcium 8.2 mg/dl (8.6-10.3); Carbon Dioxide 31.0 mmol/L (21-32); Chloride 96.0 mmol/L (98-107); Creatinine Clr Calc Pharmacy 12.1 ml/min; Glucose 174.0 mg/dl (70-99(Fasting)); Potassium 3.9 mmol/L (3.5-5.1); Sodium 138.0 mmol/L (136-145)
[2025-06-30 07:10] LABS: Hematocrit (blood only) 22.5 % (37.0-47.0); Hemoglobin 7.1 g/dl (12.0-16.0); Mean Corpuscular Hemoglobin 29.8 pg (25.0-34.0); Mean Corpuscular Volume 94.5 fL (80.0-100.0); Platelet Count 170 K/uL (130-400); RDW Standard Deviation 46.1 fL (36.4-46.3); Red Blood Count 2.38 M/uL (4.20-5.40); White Blood Count 12.72 K/ul (4.8-10.8)
[2025-06-30 07:31] LABS: Hemoglobin A1C 8.5 % (4.5-5.6)
[2025-06-30] MEDS: FAMOTIDINE 40 MG TABLET PO SCH (08:37)
[2025-06-30] MEDS: SERTRALINE HCL 50 MG TABLET PO SCH (08:37)
[2025-06-30] MEDS: ASPIRIN 81 MG ECTAB PO SCH (08:37)
[2025-06-30] MEDS: CLOPIDOGREL BISULFATE 75 MG TAB PO SCH (08:37)
[2025-06-30] MEDS: HEPARIN SOD 5,000 UNIT/0.5 ML VIAL SQ SCH (08:38)
[2025-06-30] MEDS: MULTIVITAMIN TAB PO SCH (08:38)
[2025-06-30] MEDS: EZETIMIBE 10 MG TAB PO SCH (08:38)
[2025-06-30] MEDS: ROSUVASTATIN CALCIUM 10 MG TAB PO SCH (08:38)
--- NOTE | 2025-06-30 10:21 | Nephrology Consultation ---
Date of Consultation June 30, 2025 Assessment & Plan (1) ESRD (end stage renal disease) on dialysis: (2) Anemia due to chronic kidney disease: (3) Pneumonia: (4) Multiple falls: (5) Ambulatory dysfunction: (6) H/O insulin dependent diabetes mellitus: Plan 70-year-old woman with end-stage kidney disease on hemodialysis, hypertension, diabetes, peripheral vascular disease admitted to the hospital with difficulty with ambulation after repeated falls recently. Found to have bilateral pneumonia and pleural effusion, started empirically on vancomycin and Zosyn. ESKD secondary to microvascular disease with history of hypertension, diabetes, coronary artery disease and peripheral vascular disease, started on hemodialysis in 2023. She also has a right IJ tunneled dialysis catheter, waiting to be removed, right brachiocephalic AV fistula has been functioning well for dialysis recently. Dialysis at [facility], for 3 h. Blood pressure controlled, volume status acceptable. Hemoglobin dropped to 7.1. Electrolyte acceptable. --Monitor hemoglobin, will check iron study with next lab. -- Plan to keep on schedule for hemodialysis tomorrow -- Epogen with hemodialysis -- Right arm nephrology precaution, dose medications for eGFR less than 10 -- Continue on renal vitamins Thank you for allowing me to participate in your patient's care. It was a pleasure to see Mariza. History of Present Illness Reason for Consultation: ESKD on HD Attending Physician: Earle Singleton History of Present Illness Ms. Mariza Quezada past medical history significant for is a 70-year-old woman with end-stage kidney disease on hemodialysis, hypertension, diabetes, peripher al vascular disease admitted to the hospital with difficulty with ambulation after repeated falls recently. Nephrology consult was requested for management of hemodialysis while inpatient. EMR records were reviewed in detail during patient's visit. Mariza was brought to ED yesterday via EMS with difficulty with ambulation and back pain and history of repeated falls at home recently. She went to [facility] ED on 06/28/2025 after a fall at home. According to the report imaging there showed compression fracture but not significant enough to require any intervention or hospitalization and she was discharged home. Yesterday she went to [place] dialysis unit for her regular dialysis and had full dialysis treatment for 3 hours. However, after dialysis she was unable to get up or ambulate and has been having ongoing lower back pain. According to the reports she has been having difficulty with ambulation at home for quite some time and has been having repeated falls. Recently she was also at a rehab but still was Showed because of insurance issues and she went home but she continued to have those symptoms. Workup in ER showed otherwise stable vital sign. Lab was notable for leukocytosis and low hemoglobin at 7.1. Potassium was normal. LFTs were unremarkable. Troponins were slightly elevated but stable. Urinalysis showed 3+ proteinuria, microscopic hematuria and bacteriuria. Chest x-ray showed bilateral pleural effusion and lower lobe pneumonia. EKG with no acute ST-T changes. CT of the head, C-spine, C/A/P showed nondisplaced right 9th and 10th rib fractures. She was empirically started on Zosyn and vancomycin. Has complex past medical history including ESKD secondary to microvascular disease with history of hypertension, diabetes, coronary artery disease and peripheral vascular disease, started on hemodialysis in 2023. She also has a right IJ tunneled dialysis catheter, waiting to be removed, right brachiocephalic AV fistula has been functioning well for dialysis recently. D[facility] at [facility], for 3 h, primary monitoring specialist Dr. Arnold. She still voids several times a day. Coronary artery disease, had PCI before. Significant history of peripheral vascular disease with multiple intervention before. Type 2 diabetes associated with diabetic retinopathy. Mild cognitive impairment and memory loss as well as history of parkinsonism. She continues to have significant ongoing back pain. No shortness of breath or chest pain. Allergies Allergy/AdvReac Type Severity Reaction Status Date / Time atorvastatin [From Lipitor] AdvReac . Verified 06/29/25 19:14 Home Medications Medication Instructions Recorded Confirmed Type carvedilol 25 mg tablet 25 mg PO BID 08/12/24 06/29/25 History clopidogrel 75 mg tablet (Plavix) 75 mg PO DAILY 08/12/24 06/29/25 History ezetimibe 10 mg tablet (Zetia) 10 mg PO DAILY 08/12/24 06/29/25 History famotidine 40 mg tablet 40 mg PO DAILY 08/12/24 06/29/25 History rosuvastatin 10 mg tablet 10 mg PO DAILY 08/12/24 06/29/25 History sertraline 50 mg tablet 50 mg PO DAILY 08/12/24 06/29/25 History aspirin 81 mg tablet,delayed 81 mg PO DAILY 12/30/24 06/29/25 History release (Adult Low Dose Aspirin) calcifediol 30 mcg capsule,24 30 mcg PO DAILY 12/30/24 06/29/25 History hr,extended release (Rayaldee) sacubitril 24 mg-valsartan 26 mg 1 tab PO BID 12/30/24 06/29/25 History tablet (Entresto) flash glucose sensor (FreeStyle 03/01/25 03/01/25 History [place] 2 Sensor kit) amlodipine 2.5 mg tablet 2.5 mg PO DAILY 06/29/25 06/29/25 History gabapentin 100 mg tablet 100 mg PO DAILY 06/29/25 06/29/25 History insulin degludec 100 unit/mL (3 16 unit subcut DAILY 06/29/25 06/29/25 History mL) subcutaneous pen (Tresiba FlexTouch U-100 insulin) vitamin B complex-vitamin C-folic 1 tab PO DAILY 06/29/25 06/29/25 History acid 0.8 mg tablet (Karissa-Kassidy) Patient History Medical History H/O fracture of hip Status post fall Iron deficiency Anemia H/O: CVA (cerebrovascular accident) 2016 COVID-19 Surgical History Status post hip surgery Right History of ankle surgery History of appendectomy Family History Mother , age 75 Diabetes Colorectal cancer Father , age 82 Heart disease Diabetes Coronary heart disease Brother Heart disease Social History Smoking Status: Unknown if ever smoked Hx Alcohol Use: No Hx Substance Use: No Preferred Language: Belarusian Communication Ability: Effective 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 Physical Exam Constitutional: WD/WN, vitals as above no acute distress Eyes: + anicteric sclerae Respiratory: Auscultation: + diminished lung sounds and + crackles Cardiovascular: Rate/Rhythm: regular rate and regular rhythm Heart Sounds: normal S1 and normal S2 Extremities: + vascular access device (Rt IJ TDC) and + AV fistula (Rt you can do what he wants BC AVF) Gastrointestinal (Abdomen): Inspection/Auscultation: abdomen normal to inspection Percussion/Palpation: abdomen soft; abdomen nontender Skin: no rashes, warm and dry Neurologic: no focal motor deficits Psychiatric: Orientation: alert and oriented x 3 Affect: euthymic affect Results & Data Vital Signs (Past 12 Hours) Vital Signs Temp Pulse Pulse Resp BP Pulse Ox O2 Del Method 06/30/25 08:15 37.1 C 64 16 113/63 97 Nasal Cannula 06/30/25 07:32 67 16 96 Nasal Cannula 06/30/25 05:36 37.2 C 06/30/25 04:55 39.2 C H 06/30/25 03:24 38.4 C H 72 18 127/53 L 92 Nasal Cannula 06/29/25 23:54 37.0 C 70 18 126/51 L 95 Room Air 06/29/25 22:08 71 16 95 Nasal Cannula O2 Flow Rate 06/30/25 08:15 2 06/30/25 07:32 2 06/30/25 05:36 06/30/25 04:55 06/30/25 03:24 2.0 06/29/25 23:54 06/29/25 22:08 2 PG Care Time/CCT Total # of Minutes Spent Total Time Spent with Patient: Total time spent is greater than 50% in coordination of care (as documented) at patient's floor/unit and/or counseling patient: Coding Level of Care Code 94524 INT INP/OBS CARE 3/75MIN Diagnoses ESRD (end stage renal disease) on dialysis N18.6; Z99.2 Anemia due to chronic kidney disease N18.9; D63.1 Pneumonia J18.9 Multiple falls R29.6 Ambulatory dysfunction R26.2 H/O insulin dependent diabetes mellitus Z86.39
--- NOTE | 2025-06-30 10:47 | Pharmacy Report ---
Pharmacy Glycemic Short Note 2 - Date of Service June 30, 2025 - Glycemic Short BSG Results (Last 24 hours): 06/29/25 06/29/25 06/30/25 14:50 20:55 05:46 Glucose 200 H 174 H POC Glucose 221 H 06/30/25 07:18 Glucose POC Glucose 182 H OUTPATIENT ANTIDIABETIC REGIMEN: * Treisiba 16 units SQ HS * Humalog 3 units SQ with breakfast and lunch, 5 units with dinner * Patient's A1c = 8.5% today. * However, this result is likely somewhat unreliable in ESRD patients d/t interactions between the A1c analyzing technique and high levels of urea in ESRD, reduced RBC life span, iron deficiency anemia, and EPO administration. HbA1c > 7.5% in ESRD patient may overestimate the extent of hyperglycemia in ESRD patients. ASSESSMENT: * Pt is a 70 YOF admitted with bilateral pneumonia. History of ESRD on HD MWF and DM2 on insulin therapy at home. Pharmacy consulted to assist with inpatient glycemic management. * BSGs [phone]/dL since admission. Received 12 units of basal and 3 units of bolus insulin yesterday. * Diet ordered, receiving IV antibiotics. HD scheduled for tomorrow. * Increase basal to 14 units tonight given fasting BSG >180mg/dL. Tightened Novolog at lunch from 35/12 to 30/11 for improved prandial coverage. PLAN FOR INPATIENT GLYCEMIC CONTROL: * Hold outpatient oral diabetes medications * Basal insulin * Lantus 14 units SQ HS * Bolus insulin * NovoLog per scale ACHS or Q6hrs while NPO * Goal Range: Low 110 mg/dL - High 140 mg/dL * Correction Factor: 30 mg/dL/unit * Nutritional / Prandial insulin per carb ratio of 1 unit per 11 grams CHO consumed
[2025-06-30] MEDS ORDERED: LEVALBUTEROL 1.25 MG/3 ML NEB NEB PRN (11:30)
--- NOTE | 2025-06-30 12:10 | Pharmacy Report ---
Pharmacy PK ABX Note - Date of Service June 30, 2025 - Assessment and Plan Assessment 70 year old F receiving vancomycin and zosyn empirically for suspected bilateral pneumonia. Blood and urine cultures pending. MRSA nasal (+). ESRD on iHD (MWF outpatient) with dialysis planned for tomorrow. Pt does make residual urine per . Day #2 of antimicrobial therapy. Plan Vancomycin * Loading dose: 1750 mg IV x 1 * Given ESRD on iHD, will dose by levels * Random level this AM (~12.5h level), 19.8mcg/mL which is therapeutic and safe to re-dose given residual urine output and planned HD tomorrow. * Vancomycin 500mg IV X 1 supplemental dose now. Repeat random in AM, pre-HD level (target 15-20mcg/mL). Pharmacy will continue to follow and will adjust dose/frequency as necessary. Thank you.
[2025-06-30] MEDS: VANCOMYCIN 500 MG in NSS 100mL IV ONE (12:36)
[2025-06-30] MEDS: ALBUMIN 25% 25 GM/100 ML VIAL IV ONE (20:43)
[2025-06-30] MEDS: LANTUS PER UNIT CHARGE SC SCH (21:00)
--- NOTE | 2025-06-30 22:19 | Hospitalist Progress Note ---
Date of Service June 30, 2025 Assessment & Plan (1) Pneumonia: (2) CAD (coronary artery disease): (3) ESRD (end stage renal disease) on dialysis: (4) Diabetes mellitus with insulin therapy: (5) Memory loss: Plan Sepsis in a 70 yo female with Bilateral pneumonia. Patient was recetly discharged from outside facility. Patient will be placed on broad coverage: zosyn and vancomycin. obtained blood cultures. sputum cultures pending. will remain in PCU for now. WBC showing improvement. ESRD on dialysis Her does not know Nephrology group will consult [place] [facility] for dialysis CAD will resume home meds DM2 with hyperglycemia will place on carb ratio consult glycemic control Anemia of chronic disease hemoglobin dropped to 7.1 will monitor Admission and Anticipated Discharge Date Admission Date: June 29, 2025 Subjective Patient reports no new symptoms. Patient reports breathing much better. Physical Exam Constitutional: WD/WN, vitals as above + ill appearing and + frail appearing Eyes: PERRL, conjunctivae normal, anicteric sclerae ENMT: external ear and nose normal, oropharynx normal Neck: trachea midline, no thyromegaly Respiratory: + uses accessory muscles Auscultation : + rhonchi Cardiovascular: RRR, no murmur, no edema Gastrointestinal (Abdomen): normal bowel sounds, soft, nontender, no hepatosplenomegaly Musculoskeletal: no cyanosis or clubbing, extremities motor strength 5/5 Skin: no rashes, warm and dry Neurologic: PERRL, EOMI, accommodation nl, no face palsy, no dysarthria Psychiatric: Orientation: alert; + not oriented to person, + not oriented to place and + not oriented to time Lymphatic: no cervical or axillary lymphadenopathy Results & Data Results & Data Vital Signs (Past 12 Hours) Vital Signs Temp Pulse Resp BP Pulse Ox O2 Del Method O2 Flow Rate 06/30/25 20:32 102/43 L 06/30/25 20:26 37 C 06/30/25 15:33 36.9 C 59 L 17 110/52 L 96 Nasal Cannula 2 06/30/25 12:07 36.9 C 61 16 109/67 98 Nasal Cannula 2 06/30/25 11:32 Nasal Cannula 2 PG Care Time/CCT Total # of Minutes Spent Total Time Spent with Patient: Total time spent is greater than 50% in coordination of care (as documented) at patient's floor/unit and/or counseling patient: Coding Level of Care Code 54305 SUB INP/OBS CARE MIN Diagnoses Pneumonia J18.9 Laterality: unspecified laterality Lung location: unspecified part of lung Pneumonia type: due to unspecified organism CAD (coronary artery disease) I25.10 ESRD (end stage renal disease) on dialysis N18.6; Z99.2 Diabetes mellitus with insulin therapy E11.9; Z79.4 Memory loss R41.3 (1) Pneumonia Laterality: unspecified laterality Lung location: unspecified part of lung Pneumonia type: due to unspecified organism Qualified Code(s): J18.9 - Pneumonia, unspecified organism
[2025-07-01 06:42] LABS: Hematocrit (blood only) 21.5 % (37.0-47.0); Hemoglobin 6.9 g/dl (12.0-16.0); Mean Corpuscular Hemoglobin 30.5 pg (25.0-34.0); Mean Corpuscular Volume 95.1 fL (80.0-100.0); Platelet Count 159 K/uL (130-400); RDW Standard Deviation 46.9 fL (36.4-46.3); Red Blood Count 2.26 M/uL (4.20-5.40); White Blood Count 9.00 K/ul (4.8-10.8)
[2025-07-01 07:48] LABS: Albumin Level 3.0 gm/dl (3.4-5.0); Anion Gap 12 (3-11); Blood Urea Nitrogen 38 mg/dl (6-23); Calcium 7.9 mg/dl (8.6-10.3); Carbon Dioxide 30 mmol/L (21-32); Chloride 95 mmol/L (98-107); Creatinine Clr Calc Pharmacy 9.2 ml/min; Glucose 141 mg/dl (70-99(Fasting)); Iron 16 mcg/dl (35-150); Potassium 3.3 mmol/L (3.5-5.1); Sodium 137 mmol/L (136-145); Transferrin < 95 mg/dl (200-360)
[2025-07-01] MEDS: NEPHROCAPS PO SCH (08:20)
[2025-07-01] MEDS ORDERED: SODIUM CHLORIDE 0.9% 100 ML IV PRN (08:39)
[2025-07-01] MEDS: GABAPENTIN 100 MG CAP PO SCH (09:37)
[2025-07-01] MEDS: LIDOCAINE 4% CREAM 15 GM TUBE EXT PRN (09:50)
--- NOTE | 2025-07-01 10:11 | Nephrology Progress Note ---
Date of Service July 01, 2025 Assessment & Plan (1) ESRD (end stage renal disease) on dialysis: (2) Anemia due to chronic kidney disease: (3) Pneumonia: (4) Multiple falls: (5) Ambulatory dysfunction: (6) H/O insulin dependent diabetes mellitus: Plan 70-year-old woman with end-stage kidney disease on hemodialysis, hypertension, diabetes, peripheral vascular disease admitted to the hospital with difficulty with ambulation after repeated falls recently. Found to have bilateral pneumonia and pleural effusion, started empirically on vancomycin and Zosyn. ESKD secondary to microvascular disease with history of hypertension, diabetes, coronary artery disease and peripheral vascular disease, started on hemodialysis in 2023. She also has a right IJ tunneled dialysis catheter, waiting to be removed, right brachiocephalic AV fistula has been functioning well for dialysis recently. Dialysis at [facility], for 3 h. Blood pressure relatively low but asymptomatic, volume status acceptable although weight in EMr was 67.2 and EDW 65 but clinically no clear sign fo significant volume overload. Hemoglobin dropped to 6.9, Ferritin 2400. K 3.3. Phos 3.7 ---hemodialysis now with 3 K bath, adjust UF down if BP drops further -- 1 PRBC and Epogen with hemodialysis -- Right arm nephrology precaution, dose medications for eGFR less than 10 -- Continue on renal vitamins Admission and Anticipated Discharge Date Admission Date: June 29, 2025 Subjective Mariza was seen during HD, tolerating HD but BP has been relatively low. c/o severe pain in rt leg, Tylenol did not help. Hb dropped to 6.9. denies abdominal pain, BRBPR, hemoptysis. Review of Systems Review of Systems: Detail ROS was done and pertinent positives and negatives were mentioned above. Physical Exam Constitutional: WD/WN, vitals as above + acute distress (with pain in rt leg) Eyes: + anicteric sclerae Respiratory: Auscultation: + diminished lung sounds Cardiovascular: Rate/Rhythm: regular rate and regular rhythm Heart Sounds: normal S1 and normal S2 Extremities: + vascular access device (Rt IJ TDC) and + AV fistula (Rt BC AVF) Skin: + ulcer (ischemic ulcer left heel) Neurologic: no focal motor deficits Psychiatric: Orientation: alert and oriented x 3 Affect: euthymic affect Results & Data Vital Signs (Past 12 Hours) Vital Signs Temp Pulse Resp BP Pulse Ox O2 Del Method O2 Flow Rate 07/01/25 08:30 Nasal Cannula 2 07/01/25 07:53 37.0 C 82 23 159/104 H 90 Room Air 07/01/25 07:16 36.6 C 57 L 13 116/45 L 97 Nasal Cannula 2 07/01/25 04:55 36.9 C 07/01/25 03:29 37.7 C H 58 L 16 122/72 97 Nasal Cannula 2.0 06/30/25 23:55 Nasal Cannula 2 06/30/25 22:49 37.6 C H 59 L 18 112/46 L 96 Nasal Cannula 2 PG Care Time/CCT Total # of Minutes Spent Total Time Spent with Patient: Total time spent is greater than 50% in coordination of care (as documented) at patient's floor/unit and/or counseling patient: Coding Level of Care Code 01419 SUB INP/OBS CARE MIN Diagnoses ESRD (end stage renal disease) on dialysis N18.6; Z99.2 Anemia due to chronic kidney disease N18.9; D63.1 Pneumonia J18.9 Laterality: unspecified laterality Lung location: unspecified part of lung Pneumonia type: due to unspecified organism Multiple falls R29.6 Ambulatory dysfunction R26.2 H/O insulin dependent diabetes mellitus Z86.39 (3) Pneumonia Laterality: unspecified laterality Lung location: unspecified part of lung Pneumonia type: due to unspecified organism Qualified Code(s): J18.9 - Pneumonia, unspecified organism
[2025-07-01] MEDS: HYDROmorphone INJ 0.5 MG/0.5 ML SYR IV STA (10:39)
[2025-07-01] MEDS: EPOETIN ALFA 10,000 UNITS/ML VIAL IV SCH (12:18)
--- NOTE | 2025-07-01 13:28 | Pharmacy Report ---
Pharmacy Glycemic Short Note 2 - Date of Service July 01, 2025 - Glycemic Short BSG Results (Last 24 hours): 06/30/25 06/30/25 07/01/25 16:07 20:49 01:51 Glucose POC Glucose 135 H 110 H 90 07/01/25 07/01/25 07/01/25 05:33 07:22 11:58 Glucose 141 H POC Glucose 74 125 H OUTPATIENT ANTIDIABETIC REGIMEN: * Treisiba 16 units SC HS * Humalog 3 units SC with breakfast and lunch, 5 units with dinner * Patient's A1c = 8.5% today. * However, this result is likely somewhat unreliable in ESRD patients d/t interactions between the A1c analyzing technique and high levels of urea in ESRD, reduced RBC life span, iron deficiency anemia, and EPO administration. HbA1c > 7.5% in ESRD patient may overestimate the extent of hyperglycemia in ESRD patients. ASSESSMENT: 07/01: * Mariza received 31 units of insulin yesterday, 14 of which were basal. BSGs were: [phone] mg/dL. * Fasting BSG this AM was 74 mg/dL. This is well below goal. Will reduce basal insulin this evening to provide a maximum of 10 units per BSG check at bedtime. This would represent at least a 30% reduction in basal dose. * Given trend downward in postprandial BSGs yesterday, will loosen correction factor and carb ratio today. Want to prevent hypoglycemia. * Remains on Vanc and Zosyn. Tolerating T2DM diet. HD scheduled for 3 hours today. Next session to be Friday. 06/30: * Pt is a 70 YOF admitted with bilateral pneumonia. History of ESRD on HD MWF and DM2 on insulin therapy at home. Pharmacy consulted to assist with inpatient glycemic management. * BSGs [phone]/dL since admission. Received 12 units of basal and 3 units of bolus insulin yesterday. * Diet ordered, receiving IV antibiotics. HD scheduled for tomorrow. * Increase basal to 14 units tonight given fasting BSG >180mg/dL. Tightened Novolog at lunch from 35/12 to 30/11 for improved prandial coverage. PLAN FOR INPATIENT GLYCEMIC CONTROL: * Basal insulin * Lantus 0-10 units SC HS (see eMAR for more details) * Bolus insulin * NovoLog per scale ACHS or Q6hrs while NPO * Goal Range: Low 110 mg/dL - High 140 mg/dL * Correction Factor: 35 mg/dL/unit * Nutritional / Prandial insulin per carb ratio of 1 unit per 12 grams CHO consumed
--- NOTE | 2025-07-01 13:52 | Pharmacy Report ---
Pharmacy PK ABX Note - Date of Service July 01, 2025 - Assessment and Plan Assessment 07/01: * Day #3 of Vancomycin and Zosyn for pulm indication. No growth in cultures yet. MRSA nasal swab positive. Hospitalist would like to extend Vancomycin dosing to HAP/VAP indication (no longer empiric). * Leukocytosis resolved. 24 hr Tmax of 39.2oC. Currently receiving hemodialysis treatment. Spoke with nurse sane, no plans to dialyze again until Friday unless unforeseen circumstances arise. 06/30: 70 year old F receiving vancomycin and zosyn empirically for suspected bilateral pneumonia. Blood and urine cultures pending. MRSA nasal (+). ESRD on iHD ([facility] outpatient) with dialysis planned for tomorrow. Pt does make residual urine per . Day #2 of antimicrobial therapy. Plan Vancomycin * Dosing per level given HD on MWF * Pre-HD level this AM was 19.2 mcg/mL which is therapeutic. * Will give another 500 mg IV Vancomycin dose x 1 at 1600 today following dialysis. * Ordered next pre-HD vanc level for Friday (07/04/25) Zosyn * 4.5 g IV every 12 hours Pharmacy will continue to follow and will adjust dose/frequency as necessary. Thank you.
[2025-07-01] MEDS: VANCOMYCIN 500 MG in NSS 100mL IV ONE (16:29)
[2025-07-01] MEDS: ADVANCED PROBIOTIC 625 MG CAPSULE PO SCH (16:29)
[2025-07-01] MEDS: LANTUS PER UNIT CHARGE SC SCH (20:18)
[2025-07-01] MEDS ORDERED: LANTUS PER UNIT CHARGE SC SCH (21:00)
--- NOTE | 2025-07-01 23:57 | Hospitalist Progress Note ---
Date of Service July 01, 2025 Assessment & Plan (1) Pneumonia: (2) CAD (coronary artery disease): (3) ESRD (end stage renal disease) on dialysis: (4) Diabetes mellitus with insulin therapy: (5) Memory loss: Plan Sepsis in a 70 yo female with Bilateral pneumonia. Patient was recetly discharged from outside facility. Patient will be placed on broad coverage: zosyn and vancomycin. obtained blood cultures. sputum cultures pending. will remain in PCU for now. WBC now normalized. ESRD on dialysis Her does not know Nephrology group will consult [place] [facility] for dialysis CAD will resume home meds DM2 with hyperglycemia will place on carb ratio consult glycemic control Anemia of chronic disease hemoglobin dropped to below 7, required one unit of PRBC> will monitor Updated Admission and Anticipated Discharge Date Admission Date: June 29, 2025 Subjective 70 yo female reports having significant pain in her lower extremities this AM. The pain is burning. Physical Exam Constitutional: WD/WN, vitals as above Eyes: PERRL, conjunctivae normal, anicteric sclerae ENMT: external ear and nose normal, oropharynx normal Neck: trachea midline, no thyromegaly Respiratory: + uses accessory muscles Auscultation : + rhonchi Cardiovascular: RRR, no murmur, no edema Gastrointestinal (Abdomen): normal bowel sounds, soft, nontender, no hepatosplenomegaly Musculoskeletal: no cyanosis or clubbing, extremities motor strength 5/5 Skin: no rashes, warm and dry Neurologic: PERRL, EOMI, accommodation nl, no face palsy, no dysarthria Psychiatric: Orientation: alert; + not oriented to person, + not oriented to place and + not oriented to time Lymphatic: no cervical or axillary lymphadenopathy Results & Data Results & Data Vital Signs (Past 12 Hours) Vital Signs Temp Pulse Pulse Pulse Resp BP BP 07/01/25 22:51 36.9 C 59 L 20 120/57 L 07/01/25 20:00 07/01/25 19:08 36.9 C 60 16 123/53 L 07/01/25 16:00 58 L 07/01/25 15:58 36.7 C 64 13 136/76 07/01/25 13:31 36.5 C 58 L 12 116/45 L 07/01/25 13:10 36.8 C 55 L 149/52 H 07/01/25 13:00 54 L 118/50 L 07/01/25 12:30 53 L 102/53 L 07/01/25 12:00 57 L 134/58 L Pulse Ox O2 Del Method O2 Flow Rate 07/01/25 22:51 97 Nasal Cannula 2 07/01/25 20:00 Nasal Cannula 2 07/01/25 19:08 98 Nasal Cannula 2 07/01/25 16:00 07/01/25 15:58 98 Nasal Cannula 2 07/01/25 13:31 100 Nasal Cannula 2 07/01/25 13:10 07/01/25 13:00 07/01/25 12:30 07/01/25 12:00 PG Care Time/CCT Total # of Minutes Spent Total Time Spent with Patient: Total time spent is greater than 50% in coordination of care (as documented) at patient's floor/unit and/or counseling patient: Coding Level of Care Code 04751 SUB INP/OBS CARE 3/50MIN Diagnoses Pneumonia J18.9 Laterality: unspecified laterality Lung location: unspecified part of lung Pneumonia type: due to unspecified organism CAD (coronary artery disease) I25.10 ESRD (end stage renal disease) on dialysis N18.6; Z99.2 Diabetes mellitus with insulin therapy E11.9; Z79.4 Memory loss R41.3 (1) Pneumonia Laterality: unspecified laterality Lung location: unspecified part of lung Pneumonia type: due to unspecified organism Qualified Code(s): J18.9 - Pneumonia, unspecified organism
[2025-07-02 06:25] LABS: Hematocrit (blood only) 29.2 % (37.0-47.0); Hemoglobin 9.1 g/dl (12.0-16.0); Mean Corpuscular Hemoglobin 29.4 pg (25.0-34.0); Mean Corpuscular Volume 94.5 fL (80.0-100.0); Platelet Count 204 K/uL (130-400); RDW Standard Deviation 46.2 fL (36.4-46.3); Red Blood Count 3.09 M/uL (4.20-5.40); White Blood Count 9.11 K/ul (4.8-10.8)
[2025-07-02 06:40] LABS: Anion Gap 10.0 (3-11); Blood Urea Nitrogen 28.0 mg/dl (6-23); Calcium 8.4 mg/dl (8.6-10.3); Carbon Dioxide 30.0 mmol/L (21-32); Chloride 99.0 mmol/L (98-107); Creatinine Clr Calc Pharmacy 12.8 ml/min; Glucose 112.0 mg/dl (70-99(Fasting)); Potassium 3.6 mmol/L (3.5-5.1); Sodium 139.0 mmol/L (136-145)
[2025-07-02 08:05] LABS: Cdiff Toxin B Gene (2yr or >) Negative Cdiff Gene (Neg)
--- NOTE | 2025-07-02 11:12 | Nephrology Progress Note ---
Date of Service July 02, 2025 Assessment & Plan (1) ESRD (end stage renal disease) on dialysis: Plan: ESRD attributed to DKD, hypertension, and calcific vascular disease. Mariza is maintained on HD MWF at [facility] under the care of Dr. Arnold. Outpatient Rx is 3 hrs - Fx CorAL 80 350/800 via AVF (TDC waiting for removal), 2K 2.5Ca 35HCO3; EDW 65 kg. Mariza completed HD yesterday with adequate UF and clearance. Volume status is acceptable. Electrolytes are controlled. Next HD is planned for Friday. AVF was cannulated with 16 gauge needles and used without complications for HD. Medications are appropriately dosed for kidney function. Vancomycin dosing coordinated with pharmacy by hospitalist. Repeat serum metabolic profile Friday AM prior to HD. (2) Anemia: Plan: No signs of active bleeding reported. s/p 1 unit PRBC with HD yesterday. Epogen 77891 units provided with HD. Hgb acceptable this AM. Update iron profile prior to next HD treatment. (3) Pneumonia: Plan: Cultures negative. Remains on Vancomycin and Zosyn. Management per hospitalist team. (4) Multiple falls: (5) Ambulatory dysfunction: Plan: PT/OT consultation have been requested. Admission and Anticipated Discharge Date Admission Date: June 29, 2025 Subjective No acute events overnight. Mariza tolerated HD reasonably well yesterday. There were no complications with the treatment. Net UF 1.4 L. 1 unit PRBC transfused during HD. Mariza feels well this AM. She reported significant burning pain in her legs at the start of HD yesterday. She attributes the pain to neuropathy. The symptom has been worse the past few days. She experienced symptom relief with Tylenol and hydromorphone yesterday. She told me that the pain is starting to flare again this morning and it is making her increasingly uncomfortable. She also admits to feeling very weak. She denies any shortness of breath and she questioned the need for continued supplemental oxygen. She is not experiencing fevers or chills. There has not been melena, hematochezia, or any obvious bleeding. I discussed with the SOFTWARE APPLICATIONS DEVELOPER. Review of Systems Review of Systems: All systems reviewed & are unremarkable except as noted in HPI & below Physical Exam Constitutional: + thin; no acute distress Eyes: + anicteric sclerae; no conjunctival abn ormality ENMT: external ear and nose normal, oropharynx normal Neck: normal visual inspection and trachea midline RIJ TDC Respiratory: normal respiratory effort Auscultation: lungs clear to auscultation bilaterally (anteriorly) Cardiovascular: Rate/Rhythm: regular rate Heart Sounds: normal S1 and normal S2 Extremities: + AV fistula (RUE with thrill and bruit); no edema LE peripheral pulses are very difficult to appreciate with evidence of chronic ischemia of LE Musculoskeletal: Extremities: + cyanosis (distal LE); no clubbing Skin: normal turgor and + jaundice Neurologic: Motor/Sensory: no tremor and no asterixis Psychiatric: Orientation: alert, oriented to person and cooperative Results & Data Vital Signs (Past 12 Hours) Vital Signs Temp Pulse Pulse Resp BP Pulse Ox O2 Del Method 07/02/25 10:52 37 C 64 20 150/86 H 99 Nasal Cannula 07/02/25 10:13 Nasal Cannula 07/02/25 07:43 36.8 C 61 20 167/53 H 98 Nasal Cannula 07/02/25 02:55 36.8 C 59 L 16 126/49 L 99 Room Air O2 Flow Rate 07/02/25 10:52 2 07/02/25 10:13 2 07/02/25 07:43 2 07/02/25 02:55 Laboratory Results Laboratory Results - last 24 hr 07/01/25 07/01/25 07/01/25 07:56 11:58 16:03 WBC RBC Hgb Hct MCV MCH MCHC RDW Std Deviation RDW Coeff of Evelyn Plt Count MPV Sodium Potassium Chloride Carbon Dioxide Anion Gap BUN Creatinine Est Cr Clr Drug Dosing eGFR BUN/Creatinine Ratio Glucose POC Glucose 125 H 259 H Calcium Stl C. diff Tox B Gene Stl C. diff [id number]-NAP1-BI Random Vancomycin Crossmatch See Detail 07/01/25 07/02/25 07/02/25 20:06 05:29 07:25 WBC 9.11 RBC 3.09 L Hgb 9.1 L Hct 29.2 L MCV 94.5 MCH 29.4 MCHC 31.2 L RDW Std Deviation 46.2 RDW Coeff of Evelyn 13.4 Plt Count 204 MPV 11.0 Sodium 139 Potassium 3.6 Chloride 99 Carbon Dioxide 30 Anion Gap 10 BUN 28 H Creatinine 3.64 H D Est Cr Clr Drug Dosing 12.8 eGFR 12.78 BUN/Creatinine Ratio 7.7 L Glucose 112 H POC Glucose 267 H 107 H Calcium 8.4 L Stl C. diff Tox B Gene Stl C. diff [id number]-[id number] Random Vancomycin 18.4 Crossmatch 07/02/25 07/02/25 11:19 Unknown WBC RBC Hgb Hct MCV MCH MCHC RDW Std Deviation RDW Coeff of Evelyn Plt Count MPV Sodium Potassium Chloride Carbon Dioxide Anion Gap BUN Creatinine Est Cr Clr Drug Dosing eGFR BUN/Creatinine Ratio Glucose POC Glucose 162 H Calcium Stl C. diff Tox B Gene Negative Cdiff Gene Stl C. diff [id number] NEGATIVE Random Vancomycin Crossmatch PG Care Time/CCT Total # of Minutes Spent Total Time Spent with Patient: Total time spent is greater than 50% in coordination of care (as documented) at patient's floor/unit and/or counseling patient: Coding Level of Care Code 11406 SUB INP/OBS CARE 235MIN Diagnoses ESRD (end stage renal disease) on dialysis N18.6; Z99.2 Anemia D64.9 Pneumonia J18.9 Laterality: unspecified laterality Lung location: unspecified part of lung Pneumonia type: due to unspecified organism Multiple falls R29.6 Ambulatory dysfunction R26.2 (3) Pneumonia Laterality: unspecified laterality Lung location: unspecified part of lung Pneumonia type: due to unspecified organism Qualified Code(s): J18.9 - Pneumonia, unspecified organism
--- NOTE | 2025-07-02 12:39 | Pharmacy Report ---
Pharmacy PK ABX Note - Date of Service July 02, 2025 - Assessment and Plan Assessment 07/02: * No HD today per nephrology note * No UOP documented (in mL) but patient does have about one unmeasured void per day per I&O * Random vancomycin level 18.4 mcg/mL which is in the upper end of the therapeutic range * Will not give additional vancomycin for now but will order a random level for tomorrow AM to assess patient-specific clearance in the absence of HD. 07/01: * Day #3 of Vancomycin and Zosyn for pulm indication. No growth in cultures yet. MRSA nasal swab positive. Hospitalist would like to extend Vancomycin dosing to HAP/VAP indication (no longer empiric). * Leukocytosis resolved. 24 hr Tmax of 39.2oC. Currently receiving hemodialysis treatment. Spoke with cuff matcher, no plans to dialyze again until Friday unless unforeseen circumstances arise. 06/30: 70 year old F receiving vancomycin and zosyn empirically for suspected bilateral pneumonia. Blood and urine cultures pending. MRSA nasal (+). ESRD on iHD ([facility]) with dialysis planned for tomorrow. Pt does make residual urine per . Day #2 of antimicrobial therapy. Plan Vancomycin * Dosing per level given HD on MWF * Goal pre-HD level 15-20 mcg/mL * Ordered next vanc level for 112 w AM labs Zosyn * 4.5 g IV every 12 hours Pharmacy will continue to follow and will adjust dose/frequency as necessary. Thank you.
[2025-07-02] MEDS: LOPERAMIDE HCL 2 MG CAP PO STA (19:31)
--- NOTE | 2025-07-02 23:59 | Hospitalist Progress Note ---
Date of Service July 02, 2025 Assessment & Plan (1) Pneumonia: (2) CAD (coronary artery disease): (3) ESRD (end stage renal disease) on dialysis: (4) Diabetes mellitus with insulin therapy: (5) Memory loss: Plan Sepsis in a 70 yo female with Bilateral pneumonia. Patient was recently discharged from outside facility. Patient will be placed on broad coverage: zosyn and vancomycin. Patient showing improvement. WBC now normalized. ESRD on dialysis Her does not know Nephrology group will consult [place] [facility] for dialysis CAD will resume home meds DM2 with hyperglycemia will place on carb ratio consult glycemic control Anemia of chronic disease hemoglobin improved to 9.1 Updated Admission and Anticipated Discharge Date Admission Date: June 29, 2025 Subjective 70 yo female reports no new symptoms. Patient reports feeling better. She is breathing better. Physical Exam Constitutional: WD/WN, vitals as above + ill appearing and + frail appearing Eyes: PERRL, conjunctivae normal, anicteric sclerae ENMT: external ear and nose normal, oropharynx normal Neck: trachea midline, no thyromegaly Respiratory: + uses accessory muscles Auscultation : + rhonchi Cardiovascular: RRR, no murmur, no edema Gastrointestinal (Abdomen): normal bowel sounds, soft, nontender, no hepatosplenomegaly Musculoskeletal: no cyanosis or clubbing, extremities motor strength 5/5 Skin: no rashes, warm and dry Neurologic: PERRL, EOMI, accommodation nl, no face palsy, no dysarthria Psychiatric: Orientation: alert; + not oriented to person, + not oriented to place and + not oriented to time Lymphatic: no cervical or axillary lymphadenopathy Results & Data Results & Data Vital Signs (Past 12 Hours) Vital Signs Temp Pulse Pulse Resp BP Pulse Ox O2 Del Method 07/02/25 22:41 37.0 C 59 L 8 L 123/54 L 98 Nasal Cannula 07/02/25 19:40 Nasal Cannula 07/02/25 19:14 36.9 C 62 20 122/57 L 96 Nasal Cannula 07/02/25 17:17 37.4 C 64 16 113/48 L 93 Nasal Cannula 07/02/25 15:00 60 07/02/25 12:30 60 O2 Flow Rate 07/02/25 22:41 2 07/02/25 19:40 2 07/02/25 19:14 2 07/02/25 17:17 2 07/02/25 15:00 07/02/25 12:30 PG Care Time/CCT Total # of Minutes Spent Total Time Spent with Patient: Total time spent is greater than 50% in coordination of care (as documented) at patient's floor/unit and/or counseling patient: Coding Level of Care Code 60878 SUB INP/OBS CARE 3/50MIN Diagnoses Pneumonia J18.9 Laterality: unspecified laterality Lung location: unspecified part of lung Pneumonia type: due to unspecified organism CAD (coronary artery disease) I25.10 ESRD (end stage renal disease) on dialysis N18.6; Z99.2 Diabetes mellitus with insulin therapy E11.9; Z79.4 Memory loss R41.3 (1) Pneumonia Laterality: unspecified laterality Lung location: unspecified part of lung Pneumonia type: due to unspecified organism Qualified Code(s): J18.9 - Pneumonia, unspecified organism
--- NOTE | 2025-07-03 11:08 | Pharmacy Report ---
Pharmacy PK ABX Note - Date of Service July 03, 2025 - Assessment and Plan Assessment 07/03: * Vancomycin level trended down slightly by 1 mcg/mL over the last 24 hours without HD. Therefore anticipate some (albeit a low amount of) clearance without HD. Not enough to be subtherapeutic by tomorrow, though. Will therefore hold further vancomycin today and order a repeat random for anticipated pre-HD level tomorrow * Nephrology note yesterday indicates likely next HD tomorrow. Added a pending order for maurice to request pharmacy notification *if* patient is dialyzed today to provide supplemental post-HD vancomycin. 07/02: * No HD today per nephrology note * No UOP documented (in mL) but patient does have about one unmeasured void per day per I&O * Random vancomycin level 18.4 mcg/mL which is in the upper end of the therapeutic range * Will not give additional vancomycin for now but will order a random level for tomorrow AM to assess patient-specific clearance in the absence of HD. 07/01: * Day #3 of Vancomycin and Zosyn for pulm indication. No growth in cultures yet. MRSA nasal swab positive. Hospitalist would like to extend Vancomycin dosing to HAP/VAP indication (no longer empiric). * Leukocytosis resolved. 24 hr Tmax of 39.2oC. Currently receiving hemodialysis treatment. Spoke with merchandise coordinator, no plans to dialyze again until Friday unless unforeseen circumstances arise. 06/30: 70 year old F receiving vancomycin and zosyn empirically for suspected bilateral pneumonia. Blood and urine cultures pending. MRSA nasal (+). ESRD on iHD ([facility] outpatient) with dialysis planned for tomorrow. Pt does make residual urine per . Day #2 of antimicrobial therapy. Plan Vancomycin * Dosing per level given HD on MWF * Goal pre-HD level 15-20 mcg/mL * Ordered next vanc level for 113 w AM labs Zosyn * 4.5 g IV every 12 hours Pharmacy will continue to follow and will adjust dose/frequency as necessary. Thank you.
[2025-07-03 11:26] LABS: Hematocrit (blood only) 28.9 % (37.0-47.0); Hemoglobin 9.3 g/dl (12.0-16.0); Mean Corpuscular Hemoglobin 30.9 pg (25.0-34.0); Mean Corpuscular Volume 96.0 fL (80.0-100.0); Platelet Count 213 K/uL (130-400); RDW Standard Deviation 46.8 fL (36.4-46.3); Red Blood Count 3.01 M/uL (4.20-5.40); White Blood Count 9.77 K/ul (4.8-10.8)
--- NOTE | 2025-07-03 11:42 | Nephrology Progress Note ---
Date of Service July 03, 2025 Assessment & Plan (1) ESRD (end stage renal disease) on dialysis: Plan: ESRD attributed to DKD, hypertension, and calcific vascular disease. Mariza is maintained on HD MWF at [facility] under the care of Dr. Arnold. Outpatient Rx is 3 hrs - Fx CorAL 80 350/800 via AVF (TDC waiting for removal), 2K 2.5Ca 35HCO3; EDW 65 kg. Mariza completed HD yesterday with adequate UF and clearance. Volume status is acceptable. Electrolytes are controlled. Next HD is planned for tomorrow. Preliminary orders entered. AVF was cannulated with 16 gauge needles and used without complications on Friday. Medications are appropriately dosed for kidney function. Vancomycin dosing per pharmacy consultation with pre-HD levels. I discussed with Dr. Singleton this morning and current plan is to continue antibiotics as Rx. Repeat serum metabolic profile tomorrow prior to HD. (2) Anemia: Plan: No signs of active bleeding reported. s/p 1 unit PRBC with HD 07/01. Epogen 30387 units provided with HD. Hgb stable this AM. Update iron profile prior to next HD treatment. (3) Pneumonia: Plan: Cultures negative. Remains on Vancomycin and Zosyn. Management per hospitalist team. (4) Multiple falls: (5) Ambulatory dysfunction: Plan: PT/OT consultation. Admission and Anticipated Discharge Date Admission Date: June 29, 2025 Subjective No acute events overnight. Mariza was out of bed to chair this morning. She feels well. No fevers or chills. She denies any shortness of breath. No melena or hematochezia. Review of Systems Review of Systems: All systems reviewed & are unremarkable except as noted in HPI & below Physical Exam Constitutional: + thin; no acute distress Eyes: + anicteric sclerae ENMT: external ear and nose normal, oropharynx normal Neck: normal visual inspection and trachea midline RIJ TDC Respiratory: normal respiratory effort Auscultation: lungs clear to auscultation bilaterally Cardiovascular: Rate/Rhythm: regular rate Heart Sounds: normal S1 and normal S2 Extremities: + AV fistula (RUE with thrill and bruit); no edema Musculoskeletal: Extremities: + cyanosis (distal LE); no clubbing Skin: normal turgor; no jaundice Neurologic: Motor/Sensory: no asterixis Psychiatric: Orientation: alert and cooperative Results & Data Vital Signs (Past 12 Hours) Vital Signs Temp Pulse Pulse Resp BP Pulse Ox O2 Del Method 07/03/25 10:56 36.7 C 57 L 16 98/42 L 98 Room Air 07/03/25 09:44 59 L 07/03/25 09:27 Nasal Cannula 07/03/25 07:08 37 C 65 19 150/71 H 98 Nasal Cannula 07/03/25 02:42 36.9 C 60 12 149/65 H 98 Room Air O2 Flow Rate 07/03/25 10:56 07/03/25 09:44 07/03/25 09:27 2 07/03/25 07:08 2 07/03/25 02:42 2 Laboratory Results Laboratory Results - last 24 hr 07/02/25 07/02/25 07/03/25 16:16 19:34 05:34 WBC RBC Hgb Hct MCV MCH MCHC RDW Std Deviation RDW Coeff of Evelyn Plt Count MPV Sodium Potassium Chloride Carbon Dioxide Anion Gap BUN Creatinine Est Cr Clr Drug Dosing eGFR BUN/Creatinine Ratio Glucose POC Glucose 214 H 206 H Calcium Random Vancomycin 17.4 07/03/25 07/03/25 07/03/25 07:22 10:44 11:20 WBC 9.77 RBC 3.01 L Hgb 9.3 L Hct 28.9 L MCV 96.0 MCH 30.9 MCHC 32.2 RDW Std Deviation 46.8 H RDW Coeff of Evelyn 13.2 Plt Count 213 MPV 11.0 Sodium Pending Potassium Pending Chloride Pending Carbon Dioxide Pending Anion Gap Pending BUN Pending Creatinine Pending Est Cr Clr Drug Dosing Pending eGFR Pending BUN/Creatinine Ratio Pending Glucose Pending POC Glucose 245 H 282 H Calcium Pending Random Vancomycin PG Care Time/CCT Total # of Minutes Spent Total Time Spent with Patient: Total time spent is greater than 50% in coordination of care (as documented) at patient's floor/unit and/or counseling patient: Coding Level of Care Code 23791 SUB INP/OBS CARE 2/35MIN Diagnoses ESRD (end stage renal disease) on dialysis N18.6; Z99.2 Anemia D64.9 Pneumonia J18.9 Laterality: unspecified laterality Lung location: unspecified part of lung Pneumonia type: due to unspecified organism Multiple falls R29.6 Ambulatory dysfunction R26.2 (3) Pneumonia Laterality: unspecified laterality Lung location: unspecified part of lung Pneumonia type: due to unspecified organism Qualified Code(s): J18.9 - Pneumonia, unspecified organism
[2025-07-03 11:47] LABS: Anion Gap 10.0 (3-11); Blood Urea Nitrogen 51.0 mg/dl (6-23); Calcium 8.0 mg/dl (8.6-10.3); Carbon Dioxide 28.0 mmol/L (21-32); Chloride 96.0 mmol/L (98-107); Creatinine Clr Calc Pharmacy 8.1 ml/min; Glucose 249.0 mg/dl (70-99(Fasting)); Potassium 3.3 mmol/L (3.5-5.1); Sodium 134.0 mmol/L (136-145)
--- NOTE | 2025-07-03 13:00 | Pharmacy Report ---
Pharmacy Glycemic Short Note 2 - Date of Service July 03, 2025 - Glycemic Short BSG Results (Last 24 hours): 07/02/25 07/02/25 07/03/25 16:16 19:34 07:22 Glucose POC Glucose 214 H 206 H 245 H 07/03/25 07/03/25 10:44 11:20 Glucose 249 H POC Glucose 282 H OUTPATIENT ANTIDIABETIC REGIMEN: * Treisiba 16 units SC HS * Humalog 3 units SC with breakfast and lunch, 5 units with dinner * Patient's A1c = 8.5% today. * However, this result is likely somewhat unreliable in ESRD patients d/t interactions between the A1c analyzing technique and high levels of urea in ESRD, reduced RBC life span, iron deficiency anemia, and EPO adm inistration. HbA1c > 7.5% in ESRD patient may overestimate the extent of hyperglycemia in ESRD patients. ASSESSMENT: 07/03/25: * Blood sugars elevated yesterday and so far today, possibly related to reduction in basal insulin * Hemodialysis on 07/01/25, next scheduled session is 07/04 * Novolog tightened yesterday and will further tighten carb ratio today 07/01: * Mariza received 31 units of insulin yesterday, 14 of which were basal. BSGs were: [phone] mg/dL. * Fasting BSG this AM was 74 mg/dL. This is well below goal. Will reduce basal insulin this evening to provide a maximum of 10 units per BSG check at bedtime. This would represent at least a 30% reduction in basal dose. * Given trend downward in postprandial BSGs yesterday, will loosen correction factor and carb ratio today. Want to prevent hypoglycemia. * Remains on Vanc and Zosyn. Tolerating T2DM diet. HD scheduled for 3 hours today. Next session to be Friday. 06/30: * Pt is a 70 YOF admitted with bilateral pneumonia. History of ESRD on HD MWF and DM2 on insulin therapy at home. Pharmacy consulted to assist with inpatient glycemic management. * BSGs [phone]/dL since admission. Received 12 units of basal and 3 units of bolus insulin yesterday. * Diet ordered, receiving IV antibiotics. HD scheduled for tomorrow. * Increase basal to 14 units tonight given fasting BSG >180mg/dL. Tightened Novolog at lunch from 35/12 to 30/ for improved prandial coverage. PLAN FOR INPATIENT GLYCEMIC CONTROL: * Basal insulin - increase * Lantus 10-12-14 units SC HS (see EHR for details) * Bolus insulin - tighten carb ratio * NovoLog per scale ACHS or Q6hrs while NPO * Goal Range: Low 120 mg/dL - High 160 mg/dL * Correction Factor: 30 mg/dL/unit * Nutritional / Prandial insulin per carb ratio of 1 unit per 8 grams CHO consumed
--- NOTE | 2025-07-03 22:17 | Hospitalist Progress Note ---
Date of Service July 03, 2025 Assessment & Plan (1) Pneumonia: (2) CAD (coronary artery disease): (3) ESRD (end stage renal disease) on dialysis: (4) Diabetes mellitus with insulin therapy: (5) Memory loss: Plan Sepsis in a 70 yo female with Bilateral pneumonia. Patient was recently discharged from outside facility. Patient will be placed on broad coverage: zosyn and vancomycin. Patient showing improvement. WBC now normalized. will continue the course with IV antibiotics ESRD on dialysis Appreciate input from Nephro CAD will resume home meds DM2 with hyperglycemia will place on carb ratio consult glycemic control Anemia of chronic disease hemoglobin improved to 9.1 Updated Admission and Anticipated Discharge Date Admission Date: June 29, 2025 Subjective Patient continues to feel well. She continures to have some discomfort on her legs. Physical Exam Constitutional: WD/WN, vitals as above Eyes: PERRL, conjunctivae normal, anicteric sclerae ENMT: external ear and nose normal, oropharynx normal Neck: trachea midline, no thyromegaly Respiratory: + uses accessory muscles Auscultation : + rhonchi Cardiovascular: RRR, no murmur, no edema Gastrointestinal (Abdomen): normal bowel sounds, soft, nontender, no hepatosplenomegaly Musculoskeletal: no cyanosis or clubbing, extremities motor strength 5/5 Skin: right leg is more red, no swelling, warmth, tenderness to palpation, (venous changes) Psychiatric: Orientation: alert; + not oriented to person, + not oriented to place and + not oriented to time Lymphatic: no cervical or axillary lymphadenopathy Results & Data Results & Data Vital Signs (Past 12 Hours) Vital Signs Temp Pulse Pulse Resp BP Pulse Ox O2 Del Method 07/03/25 20:07 Nasal Cannula 07/03/25 19:08 36.9 C 65 14 118/45 L 92 Room Air 07/03/25 17:00 61 135/57 L 07/03/25 15:04 36.9 C 58 L 18 114/48 L 96 Room Air 07/03/25 14:39 57 L 07/03/25 10:56 36.7 C 57 L 16 98/42 L 98 Room Air O2 Flow Rate 07/03/25 20:07 2 07/03/25 19:08 07/03/25 17:00 07/03/25 15:04 07/03/25 14:39 07/03/25 10:56 PG Care Time/CCT Total # of Minutes Spent Total Time Spent with Patient: Total time spent is greater than 50% in coordination of care (as documented) at patient's floor/unit and/or counseling patient: Coding Level of Care Code 31064 SUB INP/OBS CARE 2/35MIN Diagnoses Pneumonia J18.9 Laterality: unspecified laterality Lung location: unspecified part of lung Pneumonia type: due to unspecified organism CAD (coronary artery disease) I25.10 ESRD (end stage renal disease) on dialysis N18.6; Z99.2 Diabetes mellitus with insulin therapy E11.9; Z79.4 Memory loss R41.3 (1) Pneumonia Laterality: unspecified laterality Lung location: unspecified part of lung Pneumonia type: due to unspecified organism Qualified Code(s): J18.9 - Pneumonia, unspecified organism
[2025-07-04 05:52] LABS: Hematocrit (blood only) 24.7 % (37.0-47.0); Hemoglobin 8.3 g/dl (12.0-16.0); Mean Corpuscular Hemoglobin 31.4 pg (25.0-34.0); Mean Corpuscular Volume 93.6 fL (80.0-100.0); Platelet Count 180 K/uL (130-400); RDW Standard Deviation 45.1 fL (36.4-46.3); Red Blood Count 2.64 M/uL (4.20-5.40); White Blood Count 10.57 K/ul (4.8-10.8)
[2025-07-04 06:35] LABS: Anion Gap 11 (3-11); Blood Urea Nitrogen 64 mg/dl (6-23); Calcium 8.0 mg/dl (8.6-10.3); Carbon Dioxide 26 mmol/L (21-32); Chloride 97 mmol/L (98-107); Creatinine Clr Calc Pharmacy 6.8 ml/min; Glucose 153 mg/dl (70-99(Fasting)); Iron 20 mcg/dl (35-150); Potassium 3.4 mmol/L (3.5-5.1); Sodium 134 mmol/L (136-145); Transferrin < 95 mg/dl (200-360)
[2025-07-04 06:56] LABS: Ferritin 1015.2 ng/ml (8-388)
[2025-07-04] MEDS: LOPERAMIDE HCL 2 MG CAP PO STA ×2 (08:53→18:04)
--- NOTE | 2025-07-04 12:03 | Pharmacy Report ---
Pharmacy PK ABX Note - Date of Service July 04, 2025 - Assessment and Plan Assessment 07/04: * Vancomycin random level this morning was 15.3. Patient receiving HD today. Will redose post HD today. * Depending on definitive length of therapy, patient may only need 0-1 redoses. Provider to determine if last dose today or Friday post-HD 07/03: * Vancomycin level trended down slightly by 1 mcg/mL over the last 24 hours without HD. Therefore anticipate some (albeit a low amount of) clearance without HD. Not enough to be subtherapeutic by tomorrow, though. Will therefore hold further vancomycin today and order a repeat random for anticipated pre-HD level tomorrow * Nephrology note yesterday indicates likely next HD tomorrow. Added a pending order for tonight to request pharmacy notification *if* patient is dialyzed today to provide supplemental post-HD vancomycin. 07/02: * No HD today per nephrology note * No UOP documented (in mL) but patient does have about one unmeasured void per day per I&O * Random vancomycin level 18.4 mcg/mL which is in the upper end of the t herapeutic range * Will not give additional vancomycin for now but will order a random level for tomorrow AM to assess patient-specific clearance in the absence of HD. 07/01: * Day #3 of Vancomycin and Zosyn for pulm indication. No growth in cultures yet. MRSA nasal swab positive. Hospitalist would like to extend Vancomycin dosing to HAP/VAP indication (no longer empiric). * Leukocytosis resolved. 24 hr Tmax of 39.2oC. Currently receiving hemodialysis treatment. Spoke with silver miner, no plans to dialyze again until Friday unless unforeseen circumstances arise. 06/30: 70 year old F receiving vancomycin and zosyn empirically for suspected bilateral pneumonia. Blood and urine cultures pending. MRSA nasal (+). ESRD on iHD ([facility] outpatient) with dialysis planned for tomorrow. Pt does make residual urine per . Day #2 of antimicrobial therapy. Plan Vancomycin * Dosing per level given HD on MWF * Goal pre-HD level 15-20 mcg/mL * Re-dose with 500mg today post HD * Ordered next vanc level for 07/06 w AM labs Zosyn * 4.5 g IV every 12 hours Pharmacy will continue to follow and will adjust dose/frequency as necessary. Thank you.
--- NOTE | 2025-07-04 12:09 | Nephrology Progress Note ---
Date of Service July 04, 2025 Assessment & Plan (1) ESRD (end stage renal disease) on dialysis: Plan: ESRD attributed to DKD, hypertension, and calcific vascular disease. Mariza is maintained on HD MWF at [facility] under the care of Dr. Arnold. Outpatient Rx is 3 hrs - Fx CorAL 80 350/800 via AVF (TDC waiting for removal), 2K 2.5Ca 35HCO3; EDW 65 kg. Orders for HD today were entered into the EHR and reviewed with the store assistant. Mariza is tolerating treatment well. BP acceptable. AVF was cannulated with 16 gauge needles and used without complications. Medications are appropriately dosed for kidney function. Vancomycin dosing per hospitalist. Repeat serum metabolic profile tomorrow prior to HD. (2) Anemia: Plan: s/p 1 unit PRBC with HD 07/01. Epogen 33624 units provided with HD. Venofer 100 mg with HD this AM. (3) Pneumonia: Plan: Cultures negative. Remains on Vancomycin and Zosyn. Management per hospitalist team. (4) Multiple falls: (5) Ambulatory dysfunction: Plan: PT/OT consultation. Rehab placement has been advised. Admission and Anticipated Discharge Date Admission Date: June 29, 2025 Subjective No acute events overnight. Mariza was seen and evaluated during hemodialysis. She continues to report some pain in her feet. She was out of bed with PT/OT yesterday. Strength slightly improved. Otherwise, she feels well. Review of Systems Review of Systems: All systems reviewed & are unremarkable except as noted in HPI & below Physical Exam Constitutional: + thin; no acute distress Eyes: + anicteric sclerae; no conjunctival abn ormality ENMT: external ear and nose normal, oropharynx normal Neck: normal visual inspection and trachea midline Respiratory: normal respiratory effort Auscultation: lungs clear to auscultation bilaterally Cardiovascular: Rate/Rhythm: regular rate Heart Sounds: normal S1 and normal S2 Vessels: + dorsalis pedis pulses abnormal Extremities: + AV fistula (RUE with thrill and bruit); no edema Musculoskeletal: Extremities: + cyanosis (distal LE); no clubbing Skin: normal turgor; no jaundice Neurologic: Motor/Sensory: no tremor and no asterixis Psychiatric: Orientation: alert, oriented x 3, oriented to person and cooperative Results & Data Vital Signs (Past 12 Hours) Vital Signs Temp Pulse Pulse Pulse Pulse Resp BP 07/04/25 11:30 61 145/56 H 07/04/25 11:00 59 L 137/51 L 07/04/25 10:30 58 L 124/57 L 07/04/25 10:13 58 L 120/52 L 07/04/25 10:11 07/04/25 10:00 36.7 C 58 L 07/04/25 07:51 36.7 C 65 17 07/04/25 07:17 66 07/04/25 02:41 36.4 C L 66 14 BP Pulse Ox O2 Del Method 07/04/25 11:30 07/04/25 11:00 07/04/25 10:30 07/04/25 10:13 07/04/25 10:11 Room Air 07/04/25 10:00 07/04/25 07:51 111/47 L 93 Room Air 07/04/25 07:17 07/04/25 02:41 120/61 92 Room Air Laboratory Results Laboratory Results - last 24 hr 07/03/25 07/03/25 07/04/25 16:23 20:16 05:18 WBC 10.57 RBC 2.64 L Hgb 8.3 L Hct 24.7 L MCV 93.6 MCH 31.4 MCHC 33.6 RDW Std Deviation 45.1 RDW Coeff of Evelyn 13.2 Plt Count 180 MPV 10.9 Sodium 134 L Potassium 3.4 L Chloride 97 L Carbon Dioxide 26 Anion Gap 11 BUN 64 H Creatinine 6.87 H* D Est Cr Clr Drug Dosing 6.8 eGFR 5.96 BUN/Creatinine Ratio 9.3 L Glucose 153 H POC Glucose 105 H 138 H Calcium 8.0 L Iron 20 L TIBC TNP Transferrin < 95 L Transferrin % Sat TNP Ferritin 1015.2 H Random Vancomycin 15.3 07/04/25 07:25 WBC RBC Hgb Hct MCV MCH MCHC RDW Std Deviation RDW Coeff of Evelyn Plt Count MPV Sodium Potassium Chloride Carbon Dioxide Anion Gap BUN Creatinine Est Cr Clr Drug Dosing eGFR BUN/Creatinine Ratio Glucose POC Glucose 161 H Calcium Iron TIBC Transferrin Transferrin % Sat Ferritin Random Vancomycin PG Care Time/CCT Total # of Minutes Spent Total Time Spent with Patient: Total time spent is greater than 50% in coordination of care (as documented) at patient's floor/unit and/or counseling patient: Coding Level of Care Code 20271 SUB INP/OBS CARE 50MIN Diagnoses ESRD (end stage renal disease) on dialysis N18.6; Z99.2 Anemia D64.9 Pneumonia J18.9 Laterality: unspecified laterality Lung location: unspecified part of lung Pneumonia type: due to unspecified organism Multiple falls R29.6 Ambulatory dysfunction R26.2 (3) Pneumonia Laterality: unspecified laterality Lung location: unspecified part of lung Pneumonia type: due to unspecified organism Qualified Code(s): J18.9 - Pneumonia, unspecified organism
[2025-07-04] MEDS: IRON SUCROSE 100 MG in SYRINGE 0 ML IV SCH (13:48)
[2025-07-04] MEDS: VANCOMYCIN 500 MG in NSS 100mL IV SCH (17:13)
--- NOTE | 2025-07-04 23:42 | Hospitalist Progress Note ---
Date of Service July 04, 2025 Assessment & Plan (1) Pneumonia: (2) CAD (coronary artery disease): (3) ESRD (end stage renal disease) on dialysis: (4) Diabetes mellitus with insulin therapy: (5) Memory loss: Plan Sepsis in a 70 yo female with Bilateral pneumonia. Patient was recently discharged from outside facility. Patient will be placed on broad coverage: zosyn and vancomycin. Patient showing improvement. WBC now normalized. will continue the course with IV antibiotics, will complete on 07/06. ESRD on dialysis Appreciate input from Nephro CAD will resume home meds DM2 with hyperglycemia will place on carb ratio consult glycemic control Anemia of chronic disease hemoglobin improved to 9.1 Updated Admission and Anticipated Discharge Date Admission Date: June 29, 2025 Subjective Patient reports no new symptoms. Physical Exam Constitutional: WD/WN, vitals as above Eyes: PERRL, conjunctivae normal, anicteric sclerae ENMT: external ear and nose normal, oropharynx normal Neck: trachea midline, no thyromegaly Respiratory: Auscultation: + rhonchi Cardiovascular: RRR, no murmur, no edema Gastrointestinal (Abdomen): normal bowel sounds, soft, nontender, no hepatosplenomegaly Musculoskeletal: no cyanosis or clubbing, extremities motor strength 5/5 Skin: no rashes, warm and dry Neurologic: PERRL, EOMI, accommodation nl, no face palsy, no dysarthria Psychiatric: Orientation: alert; + not oriented to person, + not oriented to place and + not oriented to time Lymphatic: no cervical or axillary lymphadenopathy Results & Data Results & Data Vital Signs (Past 12 Hours) Vital Signs Temp Pulse Pulse Pulse Pulse Resp BP 07/04/25 23:15 37 C 68 18 07/04/25 22:45 68 07/04/25 19:53 07/04/25 19:25 36.4 C L 65 17 07/04/25 15:07 36.6 C 65 19 07/04/25 13:20 36.7 C 67 07/04/25 13:00 64 163/64 H 07/04/25 12:30 64 150/57 H 07/04/25 12:00 63 162/52 H BP Pulse Ox O2 Del Method 07/04/25 23:15 138/50 L 97 Room Air 07/04/25 22:45 07/04/25 19:53 Room Air 07/04/25 19:25 113/47 L 91 Room Air 07/04/25 15:07 118/49 L 91 Room Air 07/04/25 13:20 152/58 H 07/04/25 13:00 07/04/25 12:30 07/04/25 12:00 PG Care Time/CCT Total # of Minutes Spent Total Time Spent with Patient: Total time spent is greater than 50% in coordination of care (as documented) at patient's floor/unit and/or counseling patient: Coding Level of Care Code 22801 SUB INP/OBS CARE MIN Diagnoses Pneumonia J18.9 Laterality: unspecified laterality Lung location: unspecified part of lung Pneumonia type: due to unspecified organism CAD (coronary artery disease) I25.10 ESRD (end stage renal disease) on dialysis N18.6; Z99.2 Diabetes mellitus with insulin therapy E11.9; Z79.4 Memory loss R41.3 (1) Pneumonia Laterality: unspecified laterality Lung location: unspecified part of lung Pneumonia type: due to unspecified organism Qualified Code(s): J18.9 - Pneumonia, unspecified organism
[2025-07-05 06:26] LABS: Hematocrit (blood only) 25.4 % (37.0-47.0); Hemoglobin 8.3 g/dl (12.0-16.0)
--- NOTE | 2025-07-05 08:59 | Pharmacy Report ---
Pharmacy Glycemic Short Note 2 - Date of Service July 05, 2025 - Glycemic Short BSG Results (Last 24 hours): 07/04/25 07/04/25 07/04/25 13:38 16:15 20:16 POC Glucose 116 H 158 H 141 H 07/05/25 07:07 POC Glucose 204 H OUTPATIENT ANTIDIABETIC REGIMEN: * Treisiba 16 units SC HS * Humalog 3 units SC with breakfast and lunch, 5 units with dinner * Patient's A1c = 8.5% today. * However, this result is likely somewhat unreliable in ESRD patients d/t interactions between the A1c analyzing technique and high levels of urea in ESRD, reduced RBC life span, iron deficiency anemia, and EPO administration. HbA1c > 7.5% in ESRD patient may overestimate the extent of hyperglycemia in ESRD patients. ASSESSMENT: * Patient received a total of 28 units of insulin yesterday, 10 of which were basal. * BSGs yesterday were [phone] mg/dL and fasting BSG 204 mg/dL. * Will slightly increase Lantus scale this evening. * Patient is tolerating a diet and next HD planned for 07/06. 07/03/25: * Blood sugars elevated yesterday and so far today, possibly related to reduction in basal insulin * Hemodialysis on 07/01/25, next scheduled session is 07/04 * Novolog tightened yesterday and will further tighten carb ratio today 07/01: * Mariza received 31 units of insulin yesterday, 14 of which were basal. BSGs were: [phone] mg/dL. * Fasting BSG this AM was 74 mg/dL. This is well below goal. Will reduce basal insulin this evening to provide a maximum of 10 units per BSG check at bedtime. This would represent at least a 30% reduction in basal dose. * Given trend downward in postprandial BSGs yesterday, will loosen correction factor and carb ratio today. Want to prevent hypoglycemia. * Remains on Vanc and Zosyn. Tolerating T2DM diet. HD scheduled for 3 hours today. Next session to be Friday. 06/30: * Pt is a 70 YOF admitted with bilateral pneumonia. History of ESRD on HD MWF and DM2 on insulin therapy at home. Pharmacy consulted to assist with inpatient glycemic management. * BSGs [phone]/dL since admission. Received 12 units of basal and 3 units of bolus insulin yesterday. * Diet ordered, receiving IV antibiotics. HD scheduled for tomorrow. * Increase basal to 14 units tonight given fasting BSG >180mg/dL. Tightened Novolog at lunch from 35/12 to 30/11 for improved prandial coverage. PLAN FOR INPATIENT GLYCEMIC CONTROL: * Basal insulin - increase * Lantus 12-14 units SC HS (see EHR for details) * Bolus insulin - tighten carb ratio * NovoLog per scale ACHS or Q6hrs while NPO * Goal Range: Low 120 mg/dL - High 150 mg/dL * Correction Factor: 30 mg/dL/unit * Nutritional / Prandial insulin per carb ratio of 1 unit per 8 grams CHO consumed
--- NOTE | 2025-07-05 09:59 | Nephrology Progress Note ---
Date of Service July 05, 2025 Assessment & Plan (1) ESRD (end stage renal disease) on dialysis: Plan: ESRD attributed to DKD, hypertension, and calcific vascular disease. Mariza is maintained on HD MWF at [facility] under the care of Dr. Arnold. Outpatient Rx is 3 hrs - Fx CorAL 80 350/800 via AVF (TDC waiting for removal), 2K 2.5Ca 35HCO3; EDW 65 kg. She completed HD yesterday with adequate UF and clearance. Next HD planned for tomorrow. AVF was cannulated with 16 gauge needles and used without complications. It has been used for the past week. I suspect the TDC could safely be removed. If Mariza remains inpatient, I will reach out to [facility] and vascular surgery to see if we can coordinate this for her as an inpatient. Otherwise, this can certainly be arranged while inpatient. Medications are appropriately dosed for kidney function. Vancomycin dosing per hospitalist and pharmacy. Repeat serum metabolic profile tomorrow prior to HD. (2) Anemia: Plan: s/p 1 unit PRBC with HD 07/01. Epogen 52586 units provided with HD 07/01. Venofer 100 mg with HD yesterday. (3) Pneumonia: Plan: Cultures negative. Remains on Vancomycin and Zosyn. Management per hospitalist team. (4) Multiple falls: (5) Ambulatory dysfunction: Plan: PT/OT consultation. Rehab placement has been advised. Admission and Anticipated Discharge Date Admission Date: June 29, 2025 Subjective No acute events overnight. Mariza feels well this morning. She continues to endorse weakness in her legs and pain in her feet. She tolerated HD well but notes that pain in her feet is worse during treatment. Symptoms are reasonably controlled and she is looking forward to working more with PT today. There have been no complications with dialysis. She is breathing comfortably. Review of Systems Review of Systems: All systems reviewed & are unremarkable except as noted in HPI & below Physical Exam Constitutional: + thin; no acute distress Eyes: + anicteric sclerae; no conjunctival abn ormality ENMT: external ear and nose normal, oropharynx normal Neck: normal visual inspection and trachea midline Respiratory: normal respiratory effort Auscultation: lungs clear to auscultation bilaterally Cardiovascular: Rate/Rhythm: regular rate Heart Sounds: normal S1 and normal S2 Vessels: + posterior tibial pulses abnormal and + dorsalis pedis pulses abnormal Extremities: + AV fistula (RUE with thrill and bruit); no edema Musculoskeletal: Extremities: + cyanosis (distal LE); no clubbing Skin: normal turgor; no jaundice Neurologic: Motor/Sensory: no tremor and no asterixis Psychiatric: Orientation: alert, oriented x 3, oriented to person and cooperative Results & Data Vital Signs (Past 12 Hours) Vital Signs Temp Pulse Pulse Pulse Resp BP Pulse Ox 07/05/25 07:59 07/05/25 07:08 67 07/05/25 07:03 36.8 C 65 17 133/46 L 92 07/05/25 03:40 36.4 C L 68 17 148/57 H 96 07/04/25 23:15 37 C 68 18 138/50 L 97 07/04/25 22:45 68 O2 Del Method 07/05/25 07:59 Room Air 07/05/25 07:08 07/05/25 07:03 Room Air 07/05/25 03:40 Room Air 07/04/25 23:15 Room Air 07/04/25 22:45 Laboratory Results Laboratory Results - last 24 hr 07/04/25 07/04/25 07/04/25 13:38 16:15 20:16 Hgb Hct POC Glucose 116 H 158 H 141 H 07/05/25 07/05/25 05:47 07:07 Hgb 8.3 L Hct 25.4 L POC Glucose 204 H PG Care Time/CCT Total # of Minutes Spent Total Time Spent with Patient: Total time spent is greater than 50% in coordination of care (as documented) at patient's floor/unit and/or counseling patient: Coding Level of Care Code 29626 SUB INP/OBS CARE 235MIN Diagnoses ESRD (end stage renal disease) on dialysis N18.6; Z99.2 Anemia D64.9 Pneumonia J18.9 Laterality: unspecified laterality Lung location: unspecified part of lung Pneumonia type: due to unspecified organism Multiple falls R29.6 Ambulatory dysfunction R26.2 (3) Pneumonia Laterality: unspecified laterality Lung location: unspecified part of lung Pneumonia type: due to unspecified organism Qualified Code(s): J18.9 - Pneumonia, unspecified organism
[2025-07-05] MEDS: HYDROmorphone INJ 0.5 MG/0.5 ML SYR IV STA (14:25)
--- NOTE | 2025-07-05 21:48 | Hospitalist Progress Note ---
Date of Service July 05, 2025 Assessment & Plan (1) Pneumonia: (2) CAD (coronary artery disease): (3) ESRD (end stage renal disease) on dialysis: (4) Diabetes mellitus with insulin therapy: (5) Memory loss: Plan Sepsis in a 70 yo female with Bilateral pneumonia. Patient was recently discharged from outside facility. Patient will be placed on broad coverage: zosyn and vancomycin. Patient showing improvement. WBC now normalized. will continue the course with IV antibiotics, will complete on 07/06. Pending placement ESRD on dialysis Appreciate input from Nephro CAD will resume home meds DM2 with hyperglycemia on carb ratio consult glycemic control Anemia of chronic disease hemoglobin stable above 8. Admission and Anticipated Discharge Date Admission Date: June 29, 2025 Subjective Patient reports feeling much better. Physical Exam Constitutional: WD/WN, vitals as above Eyes: PERRL, conjunctivae normal, anicteric sclerae ENMT: external ear and nose normal, oropharynx normal Neck: trachea midline, no thyromegaly Respiratory: normal respiratory effort Auscultation: lungs clear to auscultation bilaterally Cardiovascular: RRR, no murmur, no edema Gastrointestinal (Abdomen): normal bowel sounds, soft, nontender, no hepatosplenomegaly Skin: no rashes, warm and dry Psychiatric: Orientation: alert and oriented x 3 Results & Data Results & Data Vital Signs (Past 12 Hours) Vital Signs Temp Pulse Pulse Resp BP Pulse Ox O2 Del Method 07/05/25 19:58 Room Air 07/05/25 19:39 36.9 C 61 17 123/49 L 94 Room Air 07/05/25 15:34 67 07/05/25 15:30 36.6 C 61 12 119/50 L 93 Room Air 07/05/25 13:59 122/47 L 07/05/25 11:01 36.5 C 53 L 18 91/48 L 95 Room Air PG Care Time/CCT Total # of Minutes Spent Total Time Spent with Patient: Total time spent is greater than 50% in coordination of care (as documented) at patient's floor/unit and/or counseling patient: Coding Level of Care Code 38222 SUB INP/OBS CARE 3/50MIN Diagnoses Pneumonia J18.9 Laterality: unspecified laterality Lung location: unspecified part of lung Pneumonia type: due to unspecified organism CAD (coronary artery disease) I25.10 ESRD (end stage renal disease) on dialysis N18.6; Z99.2 Diabetes mellitus with insulin therapy E11.9; Z79.4 Memory loss R41.3 (1) Pneumonia Laterality: unspecified laterality Lung location: unspecified part of lung Pneumonia type: due to unspecified organism Qualified Code(s): J18.9 - Pneumonia, unspecified organism
[2025-07-06 04:37] LABS: Hep B Surface Ag with confirm Negative (Negative)
[2025-07-06 04:43] LABS: Hep C Ab Rflx HepCQuant RNA Negative (Negative)
[2025-07-06 06:12] LABS: Hematocrit (blood only) 26.1 % (37.0-47.0); Hemoglobin 8.6 g/dl (12.0-16.0); Mean Corpuscular Hemoglobin 31.3 pg (25.0-34.0); Mean Corpuscular Volume 94.9 fL (80.0-100.0); Platelet Count 218 K/uL (130-400); RDW Standard Deviation 46.7 fL (36.4-46.3); Red Blood Count 2.75 M/uL (4.20-5.40); White Blood Count 11.96 K/ul (4.8-10.8)
[2025-07-06 06:48] LABS: Albumin Level 2.6 gm/dl (3.4-5.0); Anion Gap 10.0 (3-11); Blood Urea Nitrogen 50.0 mg/dl (6-23); Calcium 8.0 mg/dl (8.6-10.3); Carbon Dioxide 25.0 mmol/L (21-32); Chloride 100.0 mmol/L (98-107); Creatinine Clr Calc Pharmacy 7.2 ml/min; Glucose 163.0 mg/dl (70-99(Fasting)); Potassium 3.6 mmol/L (3.5-5.1); Sodium 135.0 mmol/L (136-145)
--- NOTE | 2025-07-06 10:32 | Nephrology Progress Note ---
Date of Service July 06, 2025 Assessment & Plan (1) ESRD (end stage renal disease) on dialysis: Plan: ESRD attributed to DKD, hypertension, and calcific vascular disease. Mariza is maintained on HD MWF at [facility] under the care of Dr. Arnold. Outpatient Rx is 3 hrs - Fx CorAL 80 350/800 via AVF (TDC waiting for removal), 2K 2.5Ca 35HCO3; EDW 65 kg. Orders for HD today have been entered into the EHR and communicated with the thermodynamics engineer. AVF has been functioning well and we will plan to use for HD today. If AVF works well today, I suspect the TDC could safely be removed. If Mariza remains inpatient, I will reach out to [facility] and vascular surgery to see if we can coordinate this for her as an inpatient. Otherwise, this can certainly be arranged in the outpatient setting. Medications are appropriately dosed for kidney function. Vancomycin dosing per hospitalist and pharmacy. (2) Anemia: Plan: s/p 1 unit PRBC with HD 07/01. Epogen 76285 units provided with HD 07/01. Venofer 100 mg with HD yesterday. Additional 50 mg IV venofer with HD today. (3) Pneumonia: Plan: Cultures negative. Remains on Vancomycin and Zosyn. Management per hospitalist team. (4) Multiple falls: (5) Ambulatory dysfunction: Plan: PT/OT consultation. Rehab placement has been advised. Admission and Anticipated Discharge Date Admission Date: June 29, 2025 Subjective No acute events overnight. Mariza feels well this AM. Mild pain in both feet persists. No acute complaints. Review of Systems Review of Systems: All systems reviewed & are unremarkable except as noted in HPI & below Physical Exam Constitutional: + thin; no acute distress Eyes: + anicteric sclerae; no conjunctival abn ormality ENMT: external ear and nose normal, oropharynx normal Neck: normal visual inspection and trachea midline Respiratory: normal respiratory effort Auscultation: lungs clear to auscultation bilaterally Cardiovascular: Rate/Rhythm: regular rate Heart Sounds: normal S1 and normal S2 Vessels: + posterior tibial pulses abnormal and + dorsalis pedis pulses abnormal Extremities: + AV fistula (RUE with thrill and bruit); no edema Musculoskeletal: Extremities: + cyanosis (distal LE); no clubbing Skin: normal turgor; no jaundice Neurologic: Motor/Sensory: no tremor and no asterixis Psychiatric: Orientation: alert, oriented x 3, oriented to person and cooperative Results & Data Vital Signs (Past 12 Hours) Vital Signs Temp Pulse Pulse Pulse Resp BP Pulse Ox 07/06/25 10:21 07/06/25 07:44 65 16 126/53 L 90 07/06/25 03:01 36.8 C 67 17 135/49 L 92 07/05/25 23:27 36.7 C 64 17 119/40 L 96 07/05/25 22:52 63 O2 Del Method 07/06/25 10:21 Room Air 07/06/25 07:44 Room Air 07/06/25 03:01 Room Air 07/05/25 23:27 Room Air 07/05/25 22:52 Laboratory Results Laboratory Results - last 24 hr 07/05/25 07/05/25 07/05/25 11:05 14:57 15:52 WBC RBC Hgb Hct MCV MCH MCHC RDW Std Deviation RDW Coeff of Evelyn Plt Count MPV Sodium Potassium Chloride Carbon Dioxide Anion Gap BUN Creatinine Est Cr Clr Drug Dosing eGFR BUN/Creatinine Ratio Glucose POC Glucose 208 H 158 H Calcium Phosphorus Albumin Hepatitis A IgM Ab Pending Hep Bs Antigen Negative Hep B Core IgM Ab Pending Hepatitis C Antibody Negative 07/05/25 07/06/25 07/06/25 20:27 05:58 07:17 WBC 11.96 H RBC 2.75 L Hgb 8.6 L Hct 26.1 L MCV 94.9 MCH 31.3 MCHC 33.0 RDW Std Deviation 46.7 H RDW Coeff of Evelyn 13.6 Plt Count 218 MPV 10.3 Sodium 135 L Potassium 3.6 Chloride 100 Carbon Dioxide 25 Anion Gap 10 BUN 50 H Creatinine 6.42 H* Est Cr Clr Drug Dosing 7.2 eGFR 6.47 BUN/Creatinine Ratio 7.8 L Glucose 163 H POC Glucose 183 H 172 H Calcium 8.0 L Phosphorus 4.1 Albumin 2.6 L Hepatitis A IgM Ab Hep Bs Antigen Hep B Core IgM Ab Hepatitis C Antibody PG Care Time/CCT Total # of Minutes Spent Total Time Spent with Patient: Total time spent is greater than 50% in coordination of care (as documented) at patient's floor/unit and/or counseling patient: Coding Level of Care Code 89178 SUB INP/OBS CARE 3/50MIN Diagnoses ESRD (end stage renal disease) on dialysis N18.6; Z99.2 Anemia D64.9 Pneumonia J18.9 Laterality: unspecified laterality Lung location: unspecified part of lung Pneumonia type: due to unspecified organism Multiple falls R29.6 Ambulatory dysfunction R26.2 (3) Pneumonia Laterality: unspecified laterality Lung location: unspecified part of lung Pneumonia type: due to unspecified organism Qualified Code(s): J18.9 - Pneumonia, unspecified organism
[2025-07-06] MEDS: IRON SUCROSE 50 MG in SYRINGE 0 ML IV ONE (15:51)
[2025-07-06] MEDS: HYDROmorphone INJ 0.5 MG/0.5 ML SYR IV STA (16:14)
--- NOTE | 2025-07-06 18:27 | Progress Note ---
Date of Service July 06, 2025 Assessment & Plan (1) Pneumonia: Laterality: unspecified laterality Lung location: unspecified part of lung Pneumonia type: due to unspecified organism Qualified Code(s): J18.9 - Pneumonia, unspecified organism (2) CAD (coronary artery disease): (3) ESRD (end stage renal disease) on dialysis: (4) Diabetes mellitus with insulin therapy: (5) Memory loss: Plan This is a 70 year old female with a PMH of ESRD on HD, DM2, CAD; coming in due to sepsis secondary to bilateral pneumonia Sepsis in a 70 yo female with Bilateral pneumonia. Patient was recently discharged from outside facility. Patient will be placed on broad coverage: zosyn and vancomycin. Patient showing improvement. WBC now normalized. will continue the course with IV antibiotics, will complete on 07/06. Pending placement ESRD on dialysis Appreciate input from Nephro CAD will resume home meds DM2 with hyperglycemia on carb ratio consult glycemic control Anemia of chronic disease hemoglobin stable above 8. Admission and Anticipated Discharge Date Admission Date: June 29, 2025 Subjective doing okay c/o feet pain no SOB; no CP Review of Systems Review of Systems: Constitutional: No Weight Change, No Fever, No Chills, No Night Sweats, No Fatigue, No Malaise ENT/Mouth: No Hearing Changes, No Ear Pain, No Nasal Congestion, No Sinus Pain, No Hoarseness, No sore throat, No Rhinorrhea, No Swallowing Difficulty Eyes: No Eye Pain, No Swelling, No Redness, No Foreign Body, No Discharge, No Vision Changes Cardiovascular: No Chest Pain, No SOB, No PND, No Dyspnea on Exertion, No Orthopnea, No Claudication, No Edema, No Palpitations Respiratory: No Cough, No Sputum, No Wheezing, No Smoke Exposure, No Dyspnea Gastrointestinal: No Nausea, No Vomiting, No Diarrhea, No Constipation, No Pain, No Heartburn, No Anorexia, No Dysphagia, No Hematochezia, No Melena, No Flatulence, No Jaundice Genitourinary: No Dysmenorrhea, No DUB, No Dyspareunia, No Dysuria, No Urinary Frequency, No Hematuria, No Urinary Incontinence, No Urgency, No Flank Pain, No Urinary Flow Changes, No Hesitancy Musculoskeletal: No Arthralgias, No Myalgias, No Joint Swelling, No Joint Stiffness, No Back Pain, No Neck Pain, No Injury History Skin: No Skin Lesions, No Pruritis, No Hair Changes, No Breast/Skin Changes, No Nipple Discharge Neuro: No Weakness, No Numbness, No Paresthesias, No Loss of Consciousness, No Syncope, No Dizziness, No Headache, No Coordination Changes, No Recent Falls Psych: No Anxiety/Panic, No Depression, No Insomnia, No Personality Changes, No Delusions, No Rumination, No SI/HI/AH/VH, No Social Issues, No Memory Changes, No Violence/Abuse Hx., No Eating Concerns Heme/Lymph: No Bruising, No Bleeding, No Transfusions History, No Lymphadenopathy Endocrine: No Polyuria, No Polydipsia, No Temperature Intolerance Physical Exam Physical Exam: VITALS: Reviewed. WEIGHT/BMI reviewed. GEN: Healthy appearing, well-developed, NAD. PSYCH: Good Judgment. AOx3. Normal memory, mood, and affect. HEENT -Head: NC/AT; -Eyes: PERRL, EOMI. No discharge or redn ess; -Ears: External ears are normal. Normal TMs. -Nose: Normal nares. -Mouth and throat: MMM. Normal gums, muc erica, palate,. Good dentition. NECK: Supple, with no masses. CV: RRR, no m/r/g. LUNGS: CTAB, no w/r/c. ABD: Soft, NT/ND, NBS, no masses or organomegaly. : N/A SKIN: Warm, well perfused. No skin rashes or abnormal lesions. MSK: No deformities, Normal gait. EXT: No clubbing, cyanosis, or edema. NEURO: Ambulating with no limitations. Normal muscle strength and tone. No focal deficits. Results & Data Vital Signs (Past 12 Hours) Vital Signs Pulse Pulse Resp BP BP Pulse Ox O2 Del Method 07/06/25 17:57 62 07/06/25 17:11 63 170/58 H 07/06/25 17:00 55 L 177/68 H 07/06/25 16:30 65 106/43 L 07/06/25 16:00 62 153/55 H 07/06/25 15:30 61 142/50 H 07/06/25 15:00 56 L 122/44 L 07/06/25 14:30 58 L 115/44 L 07/06/25 14:11 59 L 118/43 L 07/06/25 11:32 62 18 126/49 L 96 Room Air 07/06/25 11:11 67 07/06/25 10:21 Room Air 07/06/25 07:44 65 16 126/53 L 90 Room Air PG Care Time/CCT Total # of Minutes Spent Total Time Spent with Patient: Total time spent is greater than 50% in coordination of care (as documented) at patient's floor/unit and/or counseling patient: Coding Level of Care Code 43835 SUB INP/OBS CARE 235MIN Diagnoses Pneumonia J18.9 Laterality: unspecified laterality Lung location: unspecified part of lung Pneumonia type: due to unspecified organism CAD (coronary artery disease) I25.10 ESRD (end stage renal disease) on dialysis N18.6; Z99.2 Diabetes mellitus with insulin therapy E11.9; Z79.4 Memory loss R41.3
--- NOTE | 2025-07-07 09:32 | Nephrology Progress Note ---
Date of Service July 07, 2025 Assessment & Plan (1) ESRD (end stage renal disease) on dialysis: Plan: ESRD attributed to DKD, hypertension, and calcific vascular disease. Mariza is maintained on HD MWF at [facility] under the care of Dr. Arnold. Outpatient Rx is 3 hrs - Fx CorAL 80 350/800 via AVF (TDC waiting for removal), 2K 2.5Ca 35HCO3; EDW 65 kg. She completed treatment yesterday with adequate UF and clearance. Next HD planned for tomorrow. AVF has been functioning well. I suspect the TDC could safely be removed. Medications are appropriately dosed for kidney function. Vancomycin dosing per hospitalist and pharmacy. (2) Anemia: Plan: s/p 1 unit PRBC with HD 07/01. Epogen 13854 units provided with HD 07/01. Venofer 100 mg with HD 07/04. Additional 50 mg IV venofer with HD 07/06. (3) Pneumonia: Plan: Clinically improved. Antibiotics completed. (4) Multiple falls: (5) Ambulatory dysfunction: Admission and Anticipated Discharge Date Admission Date: June 29, 2025 Subjective Mariza tolerated HD well yesterday. No complications with treatment. The pain in her feet has improved. She had a couple loose, watery bowel movements overnight and another this morning. She denies melena or hematochezia. She denies abdominal pain. Appetite is fair. She did not sleep well last night and was feeling tired this morning. Review of Systems Review of Systems: All systems reviewed & are unremarkable except as noted in HPI & below Physical Exam Constitutional: well developed; no acute distress Eyes: + anicteric sclerae ENMT: external ear and nose normal, oropharynx normal Neck: normal visual inspection and trachea midline Respiratory: normal respiratory effort Auscultation: lungs clear to auscultation bilaterally Cardiovascular: Rate/Rhythm: regular rate and regular rhythm Heart Sounds: normal S1 and normal S2 Extremities: + AV fistula (RUE with thrill and bruit); no edema Gastrointestinal (Abdomen): Inspection/Auscultation: + abdomen distended and + hyperactive bowel sounds Percussion/Palpation: abdomen soft; abdomen nontender Skin: normal turgor; no jaundice Neurologic: Motor/Sensory: no tremor and no asterixis Psychiatric: Orientation: alert and cooperative Results & Data Vital Signs (Past 12 Hours) Vital Signs Temp Pulse Pulse Pulse Pulse Resp BP 07/07/25 07:54 36.9 C 78 20 153/61 H 07/07/25 02:32 37.1 C 72 20 136/58 L 07/06/25 23:31 37.1 C 73 16 147/64 H 07/06/25 21:54 64 Pulse Ox O2 Del Method 07/07/25 07:54 94 Room Air 07/07/25 02:32 92 Room Air 07/06/25 23:31 93 Room Air 07/06/25 21:54 Laboratory Results Laboratory Results - last 24 hr 07/06/25 07/06/25 07/07/25 11:18 20:04 07:30 POC Glucose 148 H 279 H 193 H PG Care Time/CCT Total # of Minutes Spent Total Time Spent with Patient: Total time spent is greater than 50% in coordination of care (as documented) at patient's floor/unit and/or counseling patient: Coding Level of Care Code 52837 SUB INP/OBS CARE 2/35MIN Diagnoses ESRD (end stage renal disease) on dialysis N18.6; Z99.2 Anemia D64.9 Pneumonia J18.9 Laterality: unspecified laterality Lung location: unspecified part of lung Pneumonia type: due to unspecified organism Multiple falls R29.6 Ambulatory dysfunction R26.2 (3) Pneumonia Laterality: unspecified laterality Lung location: unspecified part of lung Pneumonia type: due to unspecified organism Qualified Code(s): J18.9 - Pneumonia, unspecified organism
--- NOTE | 2025-07-07 12:31 | Pharmacy Report ---
Pharmacy Glycemic Short Note 2 - Date of Service July 07, 2025 - Glycemic Short BSG Results (Last 24 hours): 07/06/25 07/07/25 07/07/25 20:04 07:30 11:12 POC Glucose 279 H 193 H 186 H OUTPATIENT ANTIDIABETIC REGIMEN: * Tresiba 16 units SC HS * Humalog 3 units SC with breakfast and lunch, 5 units with dinner * Patient's A1c = 8.5% today. * However, this result is likely somewhat unreliable in ESRD patients d/t interactions between the A1c analyzing technique and high levels of urea in ESRD, reduced RBC life span, iron deficiency anemia, and EPO administration. HbA1c > 7.5% in ESRD patient may overestimate the extent of hyperglycemia in ESRD patients. ASSESSMENT: 07/07: * BSGs ranged 150-280 in past 48 hours with patient requiring 34-40 units total of insulin * Highest value of 279 last night, patient did not receive insulin due to being in dialysis so this may explain the spike in BSG last night * Will continue with the same CF and CR as meal coverage looks appropriate for now * Increased glargine scale a bit due to elevated AM glucoses for the past couple of days * T2DM diet * Next HD planned for 07/08 07/05: * Patient received a total of 28 units of insulin yesterday, 10 of which were basal. * BSGs yesterday were [phone] mg/dL and fasting BSG 204 mg/dL. * Will slightly increase Lantus scale this evening. * Patient is tolerating a diet and next HD planned for 07/06. 07/03: * Blood sugars elevated yesterday and so far today, possibly related to reduction in basal insulin * Hemodialysis on 07/01/25, next scheduled session is 07/04 * Novolog tightened yesterday and will further tighten carb ratio today 07/01: * Mariza received 31 units of insulin yesterday, 14 of which were basal. BSGs were: [phone] mg/dL. * Fasting BSG this AM was 74 mg/dL. This is well below goal. Will reduce basal insulin this evening to provide a maximum of 10 units per BSG check at bedtime. This would represent at least a 30% reduction in basal dose. * Given trend downward in postprandial BSGs yesterday, will loosen correction factor and carb ratio today. Want to prevent hypoglycemia. * Remains on Vanc and Zosyn. Tolerating T2DM diet. HD scheduled for 3 hours today. Next session to be Friday. 06/30: * Pt is a 70 YOF admitted with bilateral pneumonia. History of ESRD on HD MWF and DM2 on insulin therapy at home. Pharmacy consulted to assist with inpatient glycemic management. * BSGs [phone]/dL since admission. Received 12 units of basal and 3 units of bolus insulin yesterday. * Diet ordered, receiving IV antibiotics. HD scheduled for tomorrow. * Increase basal to 14 units tonight given fasting BSG >180mg/dL. Tightened Novolog at lunch from 35/12 to 30/11 for improved prandial coverage. PLAN FOR INPATIENT GLYCEMIC CONTROL: * Basal insulin * Lantus 16-18 units SC HS (see EHR for details) * Bolus insulin * NovoLog per scale ACHS or Q6hrs while NPO * Goal Range: Low 120 mg/dL - High 150 mg/dL * Correction Factor: 30 mg/dL/unit * Nutritional / Prandial insulin per carb ratio of 1 unit per 8 grams CHO consumed
[2025-07-07 13:07] LABS: Hepatitis A Antibody IgM NON-REACTIVE (NON-REACTIVE); Hepatitis B Core Antibody IgM NON-REACTIVE (NON-REACTIVE)
--- NOTE | 2025-07-07 18:22 | Progress Note ---
Date of Service July 07, 2025 Assessment & Plan (1) Pneumonia: Laterality: unspecified laterality Lung location: unspecified part of lung Pneumonia type: due to unspecified organism Qualified Code(s): J18.9 - Pneumonia, unspecified organism (2) CAD (coronary artery disease): (3) ESRD (end stage renal disease) on dialysis: (4) Diabetes mellitus with insulin therapy: (5) Memory loss: Plan This is a 70 year old female with a PMH of ESRD on HD, DM2, CAD; coming in due to sepsis secondary to bilateral pneumonia Sepsis in a 70 yo female with Bilateral pneumonia. Patient was recently discharged from outside facility. Patient will be placed on broad coverage: Zosyn and vancomycin. Patient showing improvement. WBC now normalized. will continue the course with IV antibiotics, will complete on 07/06. Pending placement 07/07 - completed abx course - plan was for d/c to rehab, but insurance authorization denied - now plan for SNF - patient to get dialysis early on 07/08 then can likely be discharged ESRD on dialysis Appreciate input from Nephro CAD will resume home meds DM2 with hyperglycemia on carb ratio consult glycemic control Anemia of chronic disease hemoglobin stable above 8. Admission and Anticipated Discharge Date Admission Date: June 29, 2025 Subjective Patient seated in a chair; eating no shortness of breath states her feet pain is gone after IV pain medications Review of Systems Review of Systems: Constitutional: No Weight Change, No Fever, No Chills, No Night Sweats, No Fatigue, No Malaise ENT/Mouth: No Hearing Changes, No Ear Pain, No Nasal Congestion, No Sinus Pain, No Hoarseness, No sore throat, No Rhinorrhea, No Swallowing Difficulty Eyes: No Eye Pain, No Swelling, No Redness, No Foreign Body, No Discharge, No Vision Changes Cardiovascular: No Chest Pain, No SOB, No PND, No Dyspnea on Exertion, No Orthopnea, No Claudication, No Edema, No Palpitations Respiratory: No Cough, No Sputum, No Wheezing, No Smoke Exposure, No Dyspnea Gastrointestinal: No Nausea, No Vomiting, No Diarrhea, No Constipation, No Pain, No Heartburn, No Anorexia, No Dysphagia, No Hematochezia, No Melena, No Flatulence, No Jaundice Genitourinary: No Dysmenorrhea, No DUB, No Dyspareunia, No Dysuria, No Urinary Frequency, No Hematuria, No Urinary Incontinence, No Urgency, No Flank Pain, No Urinary Flow Changes, No Hesitancy Musculoskeletal: No Arthralgias, No Myalgias, No Joint Swelling, No Joint Stiffness, No Back Pain, No Neck Pain, No Injury History Skin: No Skin Lesions, No Pruritis, No Hair Changes, No Breast/Skin Changes, No Nipple Discharge Neuro: No Weakness, No Numbness, No Paresthesias, No Loss of Consciousness, No Syncope, No Dizziness, No Headache, No Coordination Changes, No Recent Falls Psych: No Anxiety/Panic, No Depression, No Insomnia, No Personality Changes, No Delusions, No Rumination, No SI/HI/AH/VH, No Social Issues, No Memory Changes, No Violence/Abuse Hx., No Eating Concerns Heme/Lymph: No Bruising, No Bleeding, No Transfusions History, No Lymphade nopathy Endocrine: No Polyuria, No Polydipsia, No Temperature Intolerance Physical Exam Physical Exam: VITALS: Reviewed. WEIGHT/BMI reviewed. GEN: Healthy appearing, well-developed, NAD. PSYCH: Good Judgment. AOx3. Normal memory, mood, and affect. HEENT -Head: NC/AT; -Eyes: PERRL, EOMI. No discharge or redn ess; -Ears: External ears are normal. Normal TMs. -Nose: Normal nares. -Mouth and throat: MMM. Normal gums, muc erica, palate,. Good dentition. NECK: Supple, with no masses. CV: RRR, no m/r/g. LUNGS: CTAB, no w/r/c. ABD: Soft, NT/ND, NBS, no masses or organomegaly. : N/A SKIN: Warm, well perfused. No skin rashes or abnormal lesions. MSK: No deformities, Normal gait. EXT: No clubbing, cyanosis, or edema. NEURO: Ambulating with no limitations. Normal muscle strength and tone. No focal deficits. Results & Data Vital Signs (Past 12 Hours) Vital Signs Temp Pulse Pulse Resp BP Pulse Ox O2 Del Method 07/07/25 15:36 36.7 C 75 18 147/68 H 95 Room Air 07/07/25 15:00 58 L 07/07/25 11:35 36.9 C 62 18 122/62 95 Room Air 07/07/25 10:01 74 07/07/25 08:00 Room Air 07/07/25 07:54 36.9 C 78 20 153/61 H 94 Room Air PG Care Time/CCT Total # of Minutes Spent Total Time Spent with Patient: Total time spent is greater than 50% in coordination of care (as documented) at patient's floor/unit and/or counseling patient: Coding Level of Care Code 16702 SUB INP/OBS CARE 2/35MIN Diagnoses Pneumonia J18.9 Laterality: unspecified laterality Lung location: unspecified part of lung Pneumonia type: due to unspecified organism CAD (coronary artery disease) I25.10 ESRD (end stage renal disease) on dialysis N18.6; Z99.2 Diabetes mellitus with insulin therapy E11.9; Z79.4 Memory loss R41.3
[2025-07-08] MEDS: ONDANSETRON INJ 2 MG/ML 2 ML VIAL IV PRN (08:02)
[2025-07-08 10:06] LABS: Hematocrit (blood only) 23.3 % (37.0-47.0); Hemoglobin 7.6 g/dl (12.0-16.0); Mean Corpuscular Hemoglobin 30.8 pg (25.0-34.0); Mean Corpuscular Volume 94.3 fL (80.0-100.0); Platelet Count 239 K/uL (130-400); RDW Standard Deviation 47.2 fL (36.4-46.3); Red Blood Count 2.47 M/uL (4.20-5.40); White Blood Count 9.66 K/ul (4.8-10.8)
--- NOTE | 2025-07-08 10:09 | Nephrology Progress Note ---
Date of Service July 08, 2025 Assessment & Plan (1) ESRD (end stage renal disease) on dialysis: Plan: ESRD attributed to DKD, hypertension, and calcific vascular disease. Mariza is maintained on HD MWF at [facility] under the care of Dr. Arnold. Outpatient Rx is 3 hrs - Fx CorAL 80 350/800 via AVF (TDC waiting for removal), 2K 2.5Ca 35HCO3; EDW 65 kg. Orders for HD today have been entered into the EHR and communicated with the dairy nutrition consultant. Mariza was seen and evaluated during treatment. She does not feel well this AM. BP was low. She otherwise tolerated treatment well. Volume status acceptable. AVF has been functioning well. TDC may be removed. We did not request this yesterday due to plan for discharge. If Mariza remains hospitalized, I would suggest consultation with surgery for catheter removal. Otherwise, this can be arranged in the outpatient setting. Medications are appropriately dosed for kidney function. Vancomycin dosing per hospitalist and pharmacy. (2) Anemia: Plan: s/p 1 unit PRBC with HD 07/01. Epogen 76709 units provided with HD 07/01. Transferrin notably low with hyperferritenemia. Venofer 100 mg with HD 07/04. Additional 50 mg IV Venofer with HD 07/06. Hgb has again dropped to 7.6. Epogen 98741 units will be provided with dialysis today. (3) Ambulatory dysfunction: Plan: Discharge plan discussed with Dr. Barrera. Possible weekend discharge anticipated. Admission and Anticipated Discharge Date Admission Date: June 29, 2025 Subjective Mariza was seen and evaluated during hemodialysis this AM. Unfortunately, she does not feel well this AM. She reports nausea and fatigue. Mariza states that she did not sleep well last night. Her stomach feels upset this AM. Diarrhea has improved. She denies any abdominal pain. She is not experiencing fevers or chills. She denies pain. Review of Systems Review of Systems: All systems reviewed & are unremarkable except as noted in HPI & below Physical Exam Constitutional: well developed and + ill appearing; no acute distress Eyes: + anicteric sclerae ENMT: external ear and nose normal, oropharynx normal Neck: normal visual inspection and trachea midline RIJ TDC Respiratory: normal respiratory effort Auscultation: lungs clear to auscultation bilaterally Cardiovascular: Rate/Rhythm: regular rate and regular rhythm Heart Sounds: normal S1 and normal S2 Extremities: + AV fistula (RUE with thrill and bruit); no edema Gastrointestinal (Abdomen): Percussion/Palpation: abdomen soft; abdomen nonte nder Skin: no jaundice Neurologic: Motor/Sensory: no tremor and no asterixis Psychiatric: Orientation: alert and cooperative Results & Data Vital Signs (Past 12 Hours) Vital Signs Temp Pulse Pulse Resp BP Pulse Ox O2 Del Method 07/08/25 07:58 93 Nasal Cannula 07/08/25 07:16 37.3 C 83 12 145/68 H 88 L Room Air 07/08/25 03:28 36.9 C 81 18 127/46 L 93 Room Air 07/07/25 23:57 36.7 C 78 20 161/54 H 92 Room Air O2 Flow Rate 07/08/25 07:58 2 07/08/25 07:16 07/08/25 03:28 07/07/25 23:57 Laboratory Results Laboratory Results - last 24 hr 07/05/25 07/07/25 07/07/25 14:57 11:12 16:16 WBC RBC Hgb Hct MCV MCH MCHC RDW Std Deviation RDW Coeff of Evelyn Plt Count MPV Sodium Potassium Chloride Carbon Dioxide Anion Gap BUN Creatinine Est Cr Clr Drug Dosing eGFR BUN/Creatinine Ratio Glucose POC Glucose 186 H 91 Calcium Hepatitis A IgM Ab NON-REACTIVE Hep B Core IgM Ab NON-REACTIVE 07/07/25 07/08/25 07/08/25 20:44 07:20 09:41 WBC 9.66 RBC 2.47 L Hgb 7.6 L Hct 23.3 L MCV 94.3 MCH 30.8 MCHC 32.6 RDW Std Deviation 47.2 H RDW Coeff of Evelyn 14.1 Plt Count 239 MPV 10.0 Sodium Pending Potassium Pending Chloride Pending Carbon Dioxide Pending Anion Gap Pending BUN Pending Creatinine Pending Est Cr Clr Drug Dosing Pending eGFR Pending BUN/Creatinine Ratio Pending Glucose Pending POC Glucose 194 H 189 H Calcium Pending Hepatitis A IgM Ab Hep B Core IgM Ab PG Care Time/CCT Total # of Minutes Spent Total Time Spent with Patient: Total time spent is greater than 50% in coordination of care (as documented) at patient's floor/unit and/or counseling patient: Coding Level of Care Code 40437 SUB INP/OBS CARE MIN Diagnoses ESRD (end stage renal disease) on dialysis N18.6; Z99.2 Anemia D64.9 Ambulatory dysfunction R26.2
[2025-07-08 10:33] LABS: ALC (manual) 0.39 K/uL (1.2-3.4); ANC (manual) 8.21 K/uL (1.4-6.5); RBC Morphology Unremarkable
[2025-07-08 10:37] LABS: Anion Gap 10.0 (3-11); Blood Urea Nitrogen 41.0 mg/dl (6-23); Calcium 7.9 mg/dl (8.6-10.3); Carbon Dioxide 25.0 mmol/L (21-32); Chloride 102.0 mmol/L (98-107); Creatinine Clr Calc Pharmacy 8.5 ml/min; Glucose 215.0 mg/dl (70-99(Fasting)); Potassium 3.4 mmol/L (3.5-5.1); Sodium 137.0 mmol/L (136-145)
[2025-07-08] MEDS: EPOETIN ALFA 20,000 UNITS/ML VIAL IV ONE (12:14)
--- NOTE | 2025-07-08 13:03 | Hospitalist Progress Note ---
Date of Service July 08, 2025 Assessment & Plan (1) Pneumonia: (2) CAD (coronary artery disease): (3) ESRD (end stage renal disease) on dialysis: (4) Diabetes mellitus with insulin therapy: (5) Memory loss: Plan This is a 70 year old female with a PMH of ESRD on HD, DM2, CAD; coming in due to sepsis secondary to bilateral pneumonia. Sepsis 2/2 bilateral pneumonia With leukocytosis, markedly elevated Pro-Jase of 35 (limited somewhat by renal clearance) on admission CTchest 06/29: Ninth rib fracture without pneumo. Bilateral lower lobe pneumonia with trace effusions. Clinically progressed on vancomycin/Zosyn. Leukocytosis down trended/no rmalized Given poor clinical appearance, fatigue, some cough will monitor for an additional day following dialysis. CBC pending. Pro-Jase may be slow to care due to her underlying renal disease. Did not have coverage for atypical pneumonia however she did seem to clinically progress and responded well to her 7-day course so presumably was adequately treated for her pneumonia on admission ESRD on HD Nephro following Dialysis 07/08/2025. Significantly somnolent and fatigued after, will monitor and target discharge 07/09 Potassium 3.4 BUN 41, creatinine 5.93 predialysis Volume status acceptable Fistula is working appropriately, able to have dialysis through this 4 times. Discussed tunneled catheter with nephrology, they will have this arranged for removal as outpatient through HD unit CAD Volume status managed via dialysis Continue aspirin, carvedilol, Entresto No chest pain Type II DM Aspart CF 30 CR 8 BSG control slightly suboptimal [id number] this morning Anemia of chronic disease, ESRD, ?iron deficiency Hemoglobin generally 810 Hemoglobin 7.6, no acute ischemic symptoms and without clinical bleed Trend daily Transfuse if needed for less than 7 or ischemia with less than 8. Otherwise continue EPO per nephrology recommendation B12 593 recently, not suppressed Iron studies 07/2025 limited. Serum iron unreliable and was low; transferrin was critically low likely reflective of underlying chronic disease and nutritional status. TIBC could not be performed, and ferritin was markedly elevated although this is likely as a phase reactant in the setting of her acute pneumonia. realbumin has been low, 2.6 in the past and with low transferrin l ikely reflective of underlying protein malnutrition. Will add boost supplementation and given likely underlying iron deficiency and polysaccharide supplementation Hypertension Amlodipine and other cardiac meds continued. Hold amlodipine prior to dialysis days DVT prophylaxis: Heparin subcu Diet: Renal CODE STATUS: DNR/DN Admission and Anticipated Discharge Date Admission Date: June 29, 2025 Endy Dawkins is seen at the bedside this morning. She reports she feels much more tired today and generally feels poor. She slept poorly, is very nauseous this morning, and think she had a little bit of a cough this morning although nonprod uctive. Denies fevers or chills. No pain. On reassessment at hemodialysis lab she is very fatigued, arousable and answers questions appropriately although falls back asleep easily. Does not appear clinically appropriate for discharge postdialysis at this time and will watch to the following day. She was treated with a 7-day course of antibiotics including Zosyn/vancomycin for pneumonia which should be adequate however would like to monitor her closely given her medical complexity and frailty Physical Exam Physical Exam: General: Somnolent, awakens and answers questions appropriately. Alert and oriented x 3 HEENT: Atraumatic, normocephalic. Vision and hearing grossly intact Thorax: Right tunneled catheter in place, C/D/I. Nontender. No erythema Pulm: Diminished in the bases. Symmetrical chest rise. No increased work of breathing. No respiratory distress. Cardiac: RRR, -mrg. Radial pulses intact and symmetrical. Abdominal: Nontender, nondistended, soft Extremities: Right upper extremity fistula intact with good thrill. Moves all extremities Results & Data Results & Data Vital Signs (Past 12 Hours) Vital Signs Temp Pulse Pulse Pulse Resp BP BP 07/08/25 12:00 65 116/57 L 07/08/25 11:30 64 110/49 L 07/08/25 11:00 61 114/53 L 07/08/25 10:30 62 106/50 L 07/08/25 10:00 60 109/44 L 07/08/25 09:30 64 97/55 L 07/08/25 09:21 66 112/56 L 07/08/25 09:10 36.9 C 68 07/08/25 07:58 07/08/25 07:16 37.3 C 83 12 145/68 H 07/08/25 03:28 36.9 C 81 18 127/46 L Pulse Ox O2 Del Method O2 Flow Rate 07/08/25 12:00 07/08/25 11:30 07/08/25 11:00 07/08/25 10:30 07/08/25 10:00 07/08/25 09:30 07/08/25 09:21 07/08/25 09:10 07/08/25 07:58 93 Nasal Cannula 2 07/08/25 07:16 88 L Room Air 07/08/25 03:28 93 Room Air PG Care Time/CCT Total # of Minutes Spent Total Time Spent with Patient: Total time spent is greater than 50% in coordination of care (as documented) at patient's floor/unit and/or counseling patient: Coding Level of Care Code 70826 SUB INP/OBS CARE 350MIN Diagnoses Pneumonia J18.9 Laterality: unspecified laterality Lung location: unspecified part of lung Pneumonia type: due to unspecified organism CAD (coronary artery disease) I25.10 ESRD (end stage renal disease) on dialysis N18.6; Z99.2 Diabetes mellitus with insulin therapy E11.9; Z79.4 Memory loss R41.3 (1) Pneumonia Laterality: unspecified laterality Lung location: unspecified part of lung Pneumonia type: due to unspecified organism Qualified Code(s): J18.9 - Pneumonia, unspecified organism
--- NOTE | 2025-07-08 14:47 | Pharmacy Report ---
Pharmacy Glycemic Short Note 2 - Date of Service July 08, 2025 - Glycemic Short BSG Results (Last 24 hours): 07/07/25 07/07/25 07/08/25 16:16 20:44 07:20 Glucose POC Glucose 91 194 H 189 H 07/08/25 07/08/25 09:41 12:58 Glucose 215 H POC Glucose 97 OUTPATIENT ANTIDIABETIC REGIMEN: * Tresiba 16 units SC HS * Humalog 3 units SC with breakfast and lunch, 5 units with dinner * Patient's A1c = 8.5% today. * However, this result is likely somewhat unreliable in ESRD patients d/t interactions between the A1c analyzing technique and high levels of urea in ESRD, reduced RBC life span, iron deficiency anemia, and EPO administra tion. HbA1c > 7.5% in ESRD patient may overestimate the extent of hyperglycemia in ESRD patients. ASSESSMENT: 07/08: * BSGs ranged 91-194 mg/dL yesterday, required 20 units of correctional/pranidal, 18 units of basal * Will continue with 18 units of glargine this evening- monitor 07/07: * BSGs ranged 150-280 in past 48 hours with patient requiring 34-40 units total of insulin * Highest value of 279 last night, patient did not receive insulin due to being in dialysis so this may explain the spike in BSG last night * Will continue with the same CF and CR as meal coverage looks appropriate for now * Increased glargine scale a bit due to elevated AM glucoses for the past couple of days * T2DM diet * Next HD planned for 07/08 07/05: * Patient received a total of 28 units of insulin yesterday, 10 of which were basal. * BSGs yesterday were [phone] mg/dL and fasting BSG 204 mg/dL. * Will slightly increase Lantus scale this evening. * Patient is tolerating a diet and next HD planned for 07/06. 07/03: * Blood sugars elevated yesterday and so far today, possibly related to reduction in basal insulin * Hemodialysis on 07/01/25, next scheduled session is 07/04 * Novolog tightened yesterday and will further tighten carb ratio today 07/01: * Mariza received 31 units of insulin yesterday, 14 of which were basal. BSGs were: [phone] mg/dL. * Fasting BSG this AM was 74 mg/dL. This is well below goal. Will reduce basal insulin this evening to provide a maximum of 10 units per BSG check at bedtime. This would represent at least a 30% reduction in basal dose. * Given trend downward in postprandial BSGs yesterday, will loosen correction factor and carb ratio today. Want to prevent hypoglycemia. * Remains on Vanc and Zosyn. Tolerating T2DM diet. HD scheduled for 3 hours today. Next session to be Friday. 06/30: * Pt is a 70 YOF admitted with bilateral pneumonia. History of ESRD on HD MWF and DM2 on insulin therapy at home. Pharmacy consulted to assist with inpatient glycemic management. * BSGs 500-415-660xp/dL since admission. Received 12 units of basal and 3 units of bolus insulin yesterday. * Diet ordered, receiving IV antibiotics. HD scheduled for tomorrow. * Increase basal to 14 units tonight given fasting BSG >180mg/dL. Tightened Novolog at lunch from 35/12 to 30/11 for improved prandial coverage. PLAN FOR INPATIENT GLYCEMIC CONTROL: * Basal insulin * Lantus 18 units SC HS (see EHR for details) * Bolus insulin * NovoLog per scale ACHS or Q6hrs while NPO * Goal Range: Low 120 mg/dL - High 150 mg/dL * Correction Factor: 30 mg/dL/unit * Nutritional / Prandial insulin per carb ratio of 1 unit per 8 grams CHO consumed
[2025-07-08] MEDS: LANTUS PER UNIT CHARGE SC SCH (22:00)
[2025-07-09 06:56] LABS: Hematocrit (blood only) 25.7 % (37.0-47.0); Hemoglobin 8.2 g/dl (12.0-16.0); Immature Granulocytes # (auto) 0.57 K/uL (0.01-0.20); Immature Granulocytes % (auto) 4.5 %; Mean Corpuscular Hemoglobin 30.9 pg (25.0-34.0); Mean Corpuscular Volume 97.0 fL (80.0-100.0); Platelet Count 266 K/uL (130-400); RDW Standard Deviation 50.4 fL (36.4-46.3); Red Blood Count 2.65 M/uL (4.20-5.40); White Blood Count 12.72 K/ul (4.8-10.8)
[2025-07-09 07:16] LABS: Anion Gap 9.0 (3-11); Blood Urea Nitrogen 27.0 mg/dl (6-23); Calcium 8.4 mg/dl (8.6-10.3); Carbon Dioxide 28.0 mmol/L (21-32); Chloride 103.0 mmol/L (98-107); Creatinine Clr Calc Pharmacy 11.7 ml/min; Glucose 65.0 mg/dl (70-99(Fasting)); Potassium 3.4 mmol/L (3.5-5.1); Sodium 140.0 mmol/L (136-145)
[2025-07-09] MEDS: IRON POLYSACCHARIDE COMPLEX 150 MG CAPSULE PO SCH (08:22)
--- NOTE | 2025-07-09 08:24 | Nephrology Progress Note ---
Date of Service July 09, 2025 Assessment & Plan (1) ESRD (end stage renal disease) on dialysis: Plan: * ESKD due to DKD, hypertension, and calcific vascular disease * Outpatient Rx: MWF at [facility] (Dr. Arnold) 3 hrs Fx CorAL 80 350/800 via AVF (TDC waiting for removal), 2K 2.5Ca 35HCO3 EDW 65 kg. * Volume status and electrolyte balance are acceptable. No acute indication for HD today * Will order BMP, CBC for am (2) Anemia: Plan: * s/p 1 unit PRBC with HD 07/01 * Venofer 100 mg IV provided 07/04/2025. Additional 50 mg provided 07/06/2025 * Epogen 83241 units provided with HD 07/01/25 and 07/08/2025 * Hgb improved from 7.6 to 8.2 overnight (3) Ambulatory dysfunction: Plan: * Consider PT evaluation Admission and Anticipated Discharge Date Admission Date: June 29, 2025 Subjective Ms. Quezada was evaluated in her hospital room this morning. She was alert and oriented to self, place and month. She tolerated dialysis yesterday without side effect. She denies any overt blood loss. Her primary concern is that she remains weak and has difficulty ambulating. Review of Systems Constitutional: no fever Eyes: no problem reported Ear, Nose, Mouth, Throat: no problem reported Respiratory: no cough and no dyspnea Cardiovascular: no chest pain Gastrointestinal: no abdominal pain, no nausea, no vomiting and no diarrhea/loose stools Integumentary: no rash Neurologic: no problem reported Physical Exam Constitutional: not in distress Eyes: PERRL, conjunctivae normal, anicteric sclerae ENMT: external ear and nose normal, oropharynx normal Neck: trachea midline, no thyromegaly Respiratory: normal respiratory effort, lungs clear to auscultation Cardiovascular: RRR, no murmur, no edema R IJ THC in place AVF + bruit Gastrointestinal (Abdomen): normal bowel sounds, soft, nontender, no hepatosplenomegaly Skin: no rashes, warm and dry Neurologic: no focal motor deficits Results & Data Vital Signs (Past 12 Hours) Vital Signs Temp Pulse Pulse Pulse Resp BP Pulse Ox 07/09/25 07:54 36.7 C 75 17 142/38 H 92 07/09/25 07:09 72 07/09/25 03:40 37.3 C 69 19 129/56 L 95 07/08/25 23:27 37.3 C 70 19 119/48 L 91 07/08/25 21:46 72 07/08/25 20:30 O2 Del Method O2 Flow Rate 07/09/25 07:54 Nasal Cannula 2 07/09/25 07:09 07/09/25 03:40 Nasal Cannula 2 07/08/25 23:27 Nasal Cannula 3 07/08/25 21:46 07/08/25 20:30 Nasal Cannula 2 Laboratory Results Laboratory Results - last 24 hr 07/08/25 07/08/25 07/08/25 09:41 12:58 16:07 WBC 9.66 RBC 2.47 L Hgb 7.6 L Hct 23.3 L MCV 94.3 MCH 30.8 MCHC 32.6 RDW Std Deviation 47.2 H RDW Coeff of Evelyn 14.1 Plt Count 239 MPV 10.0 Immature Gran % (Auto) Neut % (Auto) Lymph % (Auto) [place] % (Auto) Eos % (Auto) Baso % (Auto) Neut # (Auto) Lymph # (Auto) [place] # (Auto) Eos # (Auto) Baso # (Auto) Immature Gran # (Auto) Neutrophils % (Manual) 85 Lymphocytes % (Manual) 4 Monocytes % (Manual) 3 Eosinophils % (Manual) 4 Metamyelocytes % (Man) 4 Neutrophils # (Manual) 8.21 H Total Absolute Neuts 8.21 H Lymphocytes # (Manual) 0.39 L Total Abs Lymphocytes 0.39 L Monocytes # (Manual) 0.29 Eosinophils # (Manual) 0.39 Metamyelocytes # (Man) 0.39 H RBC Morphology Unremarkable Sodium 137 Potassium 3.4 L Chloride 102 Carbon Dioxide 25 Anion Gap 10 BUN 41 H Creatinine 5.93 H* Est Cr Clr Drug Dosing 8.5 eGFR 7.11 BUN/Creatinine Ratio 6.9 L Glucose 215 H POC Glucose 97 135 H Calcium 7.9 L Procalcitonin 07/08/25 07/09/25 07/09/25 21:17 06:06 07:33 WBC 12.72 H RBC 2.65 L Hgb 8.2 L Hct 25.7 L MCV 97.0 MCH 30.9 MCHC 31.9 L RDW Std Deviation 50.4 H RDW Coeff of Evelyn 14.6 H Plt Count 266 MPV 10.0 Immature Gran % (Auto) 4.5 Neut % (Auto) 73.1 Lymph % (Auto) 12.3 [place] % (Auto) 8.8 Eos % (Auto) 0.9 Baso % (Auto) 0.4 Neut # (Auto) 9.30 H Lymph # (Auto) 1.56 [place] # (Auto) 1.12 H Eos # (Auto) 0.12 Baso # (Auto) 0.05 Immature Gran # (Auto) 0.57 H Neutrophils % (Manual) Lymphocytes % (Manual) Monocytes % (Manual) Eosinophils % (Manual) Metamyelocytes % (Man) Neutrophils # (Manual) Total Absolute Neuts Lymphocytes # (Manual) Total Abs Lymphocytes Monocytes # (Manual) Eosinophils # (Manual) Metamyelocytes # (Man) RBC Morphology Sodium 140 Potassium 3.4 L Chloride 103 Carbon Dioxide 28 Anion Gap 9 BUN 27 H Creatinine 4.32 H D Est Cr Clr Drug Dosing 11.7 eGFR 10.40 BUN/Creatinine Ratio 6.3 L Glucose 65 L POC Glucose 160 H 67 L* Calcium 8.4 L Procalcitonin Pending 07/09/25 07:34 WBC RBC Hgb Hct MCV MCH MCHC RDW Std Deviation RDW Coeff of Evelyn Plt Count MPV Immature Gran % (Auto) Neut % (Auto) Lymph % (Auto) [place] % (Auto) Eos % (Auto) Baso % (Auto) Neut # (Auto) Lymph # (Auto) [place] # (Auto) Eos # (Auto) Baso # (Auto) Immature Gran # (Auto) Neutrophils % (Manual) Lymphocytes % (Manual) Monocytes % (Manual) Eosinophils % (Manual) Metamyelocytes % (Man) Neutrophils # (Manual) Total Absolute Neuts Lymphocytes # (Manual) Total Abs Lymphocytes Monocytes # (Manual) Eosinophils # (Manual) Metamyelocytes # (Man) RBC Morphology Sodium Potassium Chloride Carbon Dioxide Anion Gap BUN Creatinine Est Cr Clr Drug Dosing eGFR BUN/Creatinine Ratio Glucose POC Glucose 65 L* Calcium Procalcitonin PG Care Time/CCT Total # of Minutes Spent Total Time Spent with Patient: 50-minutes provided today to review progress notes, laboratory results, interview and examined patient, discuss goals of care with patient, order am laboratory testing, update medical record Coding Level of Care Code 82247 SUB INP/OBS CARE 3/50MIN Diagnoses ESRD (end stage renal disease) on dialysis N18.6; Z99.2 Anemia D64.9 Ambulatory dysfunction R26.2
--- NOTE | 2025-07-09 10:54 | XRay Report ---
XR chest 2V PA/lateral CLINICAL HISTORY: PNA eval COMPARISON STUDY: Chest radiograph and chest CT June 29, 2025. FINDINGS: Right axillary stents and a dual lumen right internal jugular catheter are again noted. Car diomegaly is unchanged. Mediastinal contours are stable. There is no pneumothorax. Small bilateral pl eural effusions have increased. Bibasilar opacities, left greater than right, have also increased. Pu lmonary edema persists. The patient is mildly rotated. IMPRESSION: 1. Cardiomegaly with persistent pulmonary edema. 2. Increase in small bilateral pleural effusions, left larger than right. Associated bibasilar opacit ies have also increased and could represent pneumonia or atelectasis. ACT 112: Negative or not required by law. Electronically signed by: Brandyn Luna M.D. 07/09/2025 10:52 AM
--- NOTE | 2025-07-09 11:44 | Hospitalist Progress Note ---
Date of Service July 09, 2025 Assessment & Plan (1) Pneumonia: (2) CAD (coronary artery disease): (3) ESRD (end stage renal disease) on dialysis: (4) Diabetes mellitus with insulin therapy: (5) Memory loss: Plan This is a 70 year old female with a PMH of ESRD on HD, DM2, CAD; coming in due to sepsis secondary to bilateral pneumonia. Sepsis 2/2 bilateral pneumonia With leukocytosis, markedly elevated Pro-Jase of 35 (limited somewhat by renal clearance) on admission CTchest 06/29: Ninth rib fracture without pneumo. Bilateral lower lobe pneumonia with trace effusions. Initially clinically progressed on vancomycin/Zosyn. Leukocytosis down trended/normalized. Given poor clinical appearance, fatigue, some cough. She has a recurrent fever 07/09 and rising left shift. XR: Shows persistent pulmonary edema, small bilateral pleural effusions but bibasilar opacities from which pneumonia is not excluded. QT is not prolonged. Will treat with Zosyn given hospital exposure, include atypical coverage with doxycycline which will a lso provide some MRSA coverage. If worsening then would need expansion to vancomycin. BioFire is pending. Oliguric at baseline, no urinary symptoms ESRD on HD Nephro following Chest x-ray remains with some volume overload although overall acceptable. Potassium 3.4. Creatinine 4.32. Oliguric at baseline Fistula is working appropriately, able to have dialysis through this 4 times. Discussed tunneled catheter with nephrology, they will have this arranged for removal as outpatient through HD unit CAD Volume status managed via dialysis Continue aspirin, carvedilol, Entresto No chest pain Type II DM Aspart CF 30 CR 8 BSG control labile. Pharmacy glycemic management following Anemia of chronic disease, ESRD, ?iron deficiency Hemoglobin generally 810 Hemoglobin remained stable Trend daily Transfuse if needed for less than 7 or ischemia with less than 8. Otherwise continue EPO per nephrology recommendation B12 593 recently, not suppressed Iron studies 07/2025 limited. Serum iron unreliable and was low; transferrin was critically low likely reflective of underlying chronic disease and nutritional status. TIBC could not be performed, and ferritin was markedly elevated although this is likely as a phase reactant in the setting of her acute pneumonia. Prealbumin has been low, 2.6 in the past and with low transferrin likely reflective of underlying protein malnutrition. Will add boost supplementation and iron polysaccharide supplementation Hypertension Amlodipine and other cardiac meds continued. Hold amlodipine prior to dialysis DVT prophylaxis: Heparin subcu Diet: Renal CODE STATUS: DNR/DN Admission and Anticipated Discharge Date Admission Date: June 29, 2025 Subjective Seen at bedside this morning. Tolerated dialysis yesterday. Weak and with difficulty ambulating. She feels much more tired than her normal baseline, and continues to require oxygen with no home requirements. Denies chest pain or chest pressure. No chills/fever overnight. On reassessment again with more fatigue and has become febrile. + Dry cough Physical Exam Physical Exam: General: Fatigued appearing. Alert and oriented. HEENT: Atraumatic, normocephalic. Vision and hearing grossly intact Thorax: Right tunneled catheter in place, C/D/I. Nontender. No erythema Pulm: Bibasilar crackles. Symmetrical chest rise. No increased work of breathing. No respiratory distress. Cardiac: RRR, -mrg. Radial pulses intact and symmetrical. Abdominal: Nontender, nondistended, soft Extremities: Right upper extremity fistula intact with good thrill. Moves all extremities Results & Data Results & Data Vital Signs (Past 12 Hours) Vital Signs Temp Pulse Pulse Pulse Resp BP Pulse Ox 07/09/25 08:46 07/09/25 07:54 36.7 C 75 17 142/38 H 92 07/09/25 07:09 72 07/09/25 03:40 37.3 C 69 19 129/56 L 95 O2 Del Method O2 Flow Rate 07/09/25 08:46 Nasal Cannula 2 07/09/25 07:54 Nasal Cannula 2 07/09/25 07:09 07/09/25 03:40 Nasal Cannula 2 PG Care Time/CCT Total # of Minutes Spent Total Time Spent with Patient: Total time spent is greater than 50% in coordination of care (as documented) at patient's floor/unit and/or counseling patient: Coding Level of Care Code 74847 SUB INP/OBS CARE 3/50MIN Diagnoses Pneumonia J18.9 Laterality: unspecified laterality Lung location: unspecified part of lung Pneumonia type: due to unspecified organism CAD (coronary artery disease) I25.10 ESRD (end stage renal disease) on dialysis N18.6; Z99.2 Diabetes mellitus with insulin therapy E11.9; Z79.4 Memory loss R41.3 (1) Pneumonia Laterality: unspecified laterality Lung location: unspecified part of lung Pneumonia type: due to unspecified organism Qualified Code(s): J18.9 - Pneumonia, unspecified organism
[2025-07-09] MEDS: PIPERACILLIN/TAZOBACTAM 4.5 GM/100 ML BAG IV ONE (12:16)
[2025-07-09] MEDS: DOXYCYCLINE HYCLATE 100 MG in DEXTROSE 5% MINI-B 100 ML IV SCH (13:03)
[2025-07-09 13:38] LABS: Chlamydia pneumoniae PCR Not Detected (NotDetected); Coronavirus 229E PCR Not Detected (NotDetected); Coronavirus CoV-2 (COVID19)PCR Not Detected (NotDetected); Coronavirus HKU1 PCR Not Detected (NotDetected); Coronavirus NL63 PCR Not Detected (NotDetected); Coronavirus OC43PCR Not Detected (NotDetected); Human Metapneumovirus PCR Not Detected (NotDetected); Parainfluenza Virus 1 PCR Not Detected (NotDetected); Parainfluenza Virus 2 PCR Not Detected (NotDetected); Parainfluenza Virus 3 PCR Not Detected (NotDetected); Parainfluenza Virus 4 PCR Not Detected (NotDetected); Respiratory Syncytial VirusPCR Not Detected (NotDetected); Rhinovirus/Enterovirus PCR Not Detected (NotDetected)
--- NOTE | 2025-07-09 14:10 | Pharmacy Report ---
Pharmacy Glycemic Short Note 2 - Date of Service July 09, 2025 - Glycemic Short BSG Results (Last 24 hours): 07/08/25 07/08/25 07/09/25 16:07 21:17 06:06 Glucose 65 L POC Glucose 135 H 160 H 07/09/25 07/09/25 07/09/25 07:33 07:34 10:49 Glucose POC Glucose 67 L* 65 L* 205 H 07/09/25 11:07 Glucose POC Glucose 218 H OUTPATIENT ANTIDIABETIC REGIMEN: * Tresiba 16 units SC HS * Humalog 3 units SC with breakfast and lunch, 5 units with dinner * Patient's A1c = 8.5% today. * However, this result is likely somewhat unreliable in ESRD patients d/t interactions between the A1c analyzing technique and high levels of urea in ESRD, reduced RBC life span, iron deficiency anemia, and EPO administration. HbA1c > 7.5% in ESRD patient may overestimate the extent of hyperglycemia in ESRD patients. ASSESSMENT: 07/09: * Patient received total of 29 units of insulin yesterday, of which 18 units were basal * Fasting BSG low 65 mg/dL - treated per hypoglycemia protocol/given apple juice * Will decrease basal insulin by ~45% for this evenings dose 09/07: * BSGs ranged 91-194 mg/dL yesterday, required 20 units of correctional/pranidal, 18 units of basal * Will continue with 18 units of glargine this evening- monitor 07/07: * BSGs ranged 150-280 in past 48 hours with patient requiring 34-40 units total of insulin * Highest value of 279 last night, patient did not receive insulin due to being in dialysis so this may explain the spike in BSG last night * Will continue with the same CF and CR as meal coverage looks appropriate for now * Increased glargine scale a bit due to elevated AM glucoses for the past couple of days * T2DM diet * Next HD planned for 07/08 07/05: * Patient received a total of 28 units of insulin yesterday, 10 of which were basal. * BSGs yesterday were [phone] mg/dL and fasting BSG 204 mg/dL. * Will slightly increase Lantus scale this evening. * Patient is tolerating a diet and next HD planned for 07/06. 07/03: * Blood sugars elevated yesterday and so far today, possibly related to reduction in basal insulin * Hemodialysis on 07/01/25, next scheduled session is 07/04 * Novolog tightened yesterday and will further tighten carb ratio today 07/01: * Mariza received 31 units of insulin yesterday, 14 of which were basal. BSGs were: [phone] mg/dL. * Fasting BSG this AM was 74 mg/dL. This is well below goal. Will reduce basal insulin this evening to provide a maximum of 10 units per BSG check at bedtime. This would represent at least a 30% reduction in basal dose. * Given trend downward in postprandial BSGs yesterday, will loosen correction factor and carb ratio today. Want to prevent hypoglycemia. * Remains on Vanc and Zosyn. Tolerating T2DM diet. HD scheduled for 3 hours today. Next session to be Friday. 06/30: * Pt is a 70 YOF admitted with bilateral pneumonia. History of ESRD on HD MWF and DM2 on insulin therapy at home. Pharmacy consulted to assist with inpatient glycemic management. * BSGs [phone]/dL since admission. Received 12 units of basal and 3 units of bolus insulin yesterday. * Diet ordered, receiving IV antibiotics. HD scheduled for tomorrow. * Increase basal to 14 units tonight given fasting BSG >180mg/dL. Tightened Novolog at lunch from 35/12 to 30/11 for improved prandial coverage. PLAN FOR INPATIENT GLYCEMIC CONTROL: * Basal insulin * Lantus 8-10 units HS * Bolus insulin * NovoLog per scale ACHS or Q6hrs while NPO * Goal Range: Low 120 mg/dL - High 150 mg/dL * Correction Factor: 30 mg/dL/unit * Nutritional / Prandial insulin per carb ratio of 1 unit per 12 grams CHO consumed
[2025-07-09] MEDS: PIPERACILLIN/TAZOBACTAM 4.5 GM/100 ML BAG IV SCH (20:20)
[2025-07-09] MEDS: LANTUS PER UNIT CHARGE SC SCH (20:20)
[2025-07-09] MEDS ORDERED: LANTUS PER UNIT CHARGE SC SCH (21:00)
[2025-07-10 06:32] LABS: Hematocrit (blood only) 24.2 % (37.0-47.0); Hemoglobin 7.7 g/dl (12.0-16.0); Immature Granulocytes # (auto) 0.31 K/uL (0.01-0.20); Immature Granulocytes % (auto) 2.4 %; Mean Corpuscular Hemoglobin 30.7 pg (25.0-34.0); Mean Corpuscular Volume 96.4 fL (80.0-100.0); Platelet Count 231 K/uL (130-400); RDW Standard Deviation 50.2 fL (36.4-46.3); Red Blood Count 2.51 M/uL (4.20-5.40); White Blood Count 12.78 K/ul (4.8-10.8)
[2025-07-10 06:53] LABS: Anion Gap 10 (3-11); Blood Urea Nitrogen 42 mg/dl (6-23); Calcium 8.5 mg/dl (8.6-10.3); Carbon Dioxide 28 mmol/L (21-32); Chloride 100 mmol/L (98-107); Creatinine Clr Calc Pharmacy 9.0 ml/min; Glucose 178 mg/dl (70-99(Fasting)); Potassium 3.7 mmol/L (3.5-5.1); Sodium 138 mmol/L (136-145)
[2025-07-10 06:55] LABS: Polychromasia 1+
--- NOTE | 2025-07-10 09:02 | Nephrology Progress Note ---
Date of Service July 10, 2025 Assessment & Plan (1) ESRD (end stage renal disease) on dialysis: Plan: * ESKD due to DKD, hypertension, and calcific vascular disease * Outpatient Rx: MWF at [facility] (Dr. Arnold) 3 hrs Fx CorAL 80 350/800 via AVF (TDC waiting for removal), 2K 2.5Ca 35HCO3 EDW 65 kg. * Volume status and electrolyte balance are acceptable. No acute indication for HD today. Will schedule next treatment for am * Will order BMP, CBC for am (2) Anemia: Plan: * s/p 1 unit PRBC with HD 07/01 * Hgb 8.2-->7.7 this am * Hgb is fluctuating. Will provide 10,000 units epogen SQ x1 today * Repeat iron studies have been ordered (3) Ambulatory dysfunction: Plan: * Consider PT evaluation Admission and Anticipated Discharge Date Admission Date: June 29, 2025 Subjective Ms. Quezada was evaluated in her hospital room this morning. She was alert and oriented to self, place and month. She denied fever, dyspnea, productive cough or overt blood loss. She voiced no new medical concerns Review of Systems Constitutional: no fever Eyes: no problem reported Ear, Nose, Mouth, Throat: no problem reported Respiratory: no cough and no dyspnea Cardiovascular: no chest pain Gastrointestinal: no abdominal pain, no nausea, no vomiting and no diarrhea/loose stools Integumentary: no rash Neurologic: no problem reported Physical Exam Constitutional: not in distress Eyes: PERRL, conjunctivae normal, anicteric sclerae ENMT: external ear and nose normal, oropharynx normal Neck: trachea midline, no thyromegaly Respiratory: normal respiratory effort, lungs clear to auscultation Cardiovascular: RRR, no murmur, no edema Gastrointestinal (Abdomen): normal bowel sounds, soft, nontender, no hepatosplenomegaly Skin: no rashes, warm and dry Neurologic: no focal motor deficits Results & Data Vital Signs (Past 12 Hours) Vital Signs Temp Pulse Pulse Pulse Resp BP BP 07/10/25 07:43 36.4 C L 67 15 111/66 07/10/25 06:00 37.1 C 07/10/25 06:00 69 16 116/57 L 07/09/25 23:39 36.6 C 71 16 143/76 H 07/09/25 23:00 69 Pulse Ox O2 Del Method O2 Flow Rate 07/10/25 07:43 92 Nasal Cannula 2 07/10/25 06:00 07/10/25 06:00 98 Nasal Cannula 3 07/09/25 23:39 98 Nasal Cannula 4 07/09/25 23:00 Laboratory Results Laboratory Results - last 24 hr 07/09/25 07/09/25 07/09/25 06:06 10:49 11:07 WBC RBC Hgb Hct MCV MCH MCHC RDW Std Deviation RDW Coeff of Evelyn Plt Count MPV Immature Gran % (Auto) Neut % (Auto) Lymph % (Auto) Long % (Auto) Eos % (Auto) Baso % (Auto) Neut # (Auto) Lymph # (Auto) Long # (Auto) Eos # (Auto) Baso # (Auto) Immature Gran # (Auto) Polychromasia Sodium Potassium Chloride Carbon Dioxide Anion Gap BUN Creatinine Est Cr Clr Drug Dosing eGFR BUN/Creatinine Ratio Glucose POC Glucose 205 H 218 H Calcium Procalcitonin 2.24 H Adenovirus (PCR) B. pertussis DNA (PCR) B.parapertussis DNA PCR C. pneumoniae DNA (PCR) Coronavirus OC43 (PCR) Coronavirus HKU1 (PCR) Coronavirus 229E (PCR) SARS-CoV-2 (PCR) Coronavirus NL63 (PCR) Human Metapneumovir PCR Influenza Type A (PCR) Influenza Type B (PCR) M. pneumoniae (PCR) Parainfluenza 1 (PCR) Parainfluenza 2 (PCR) Parainfluenza 3 (PCR) Parainfluenza 4 (PCR) RSV (PCR) Entero/Rhino (PCR) 07/09/25 07/09/25 07/09/25 16:28 20:09 Unknown WBC RBC Hgb Hct MCV MCH MCHC RDW Std Deviation RDW Coeff of Evelyn Plt Count MPV Immature Gran % (Auto) Neut % (Auto) Lymph % (Auto) Long % (Auto) Eos % (Auto) Baso % (Auto) Neut # (Auto) Lymph # (Auto) Long # (Auto) Eos # (Auto) Baso # (Auto) Immature Gran # (Auto) Polychromasia Sodium Potassium Chloride Carbon Dioxide Anion Gap BUN Creatinine Est Cr Clr Drug Dosing eGFR BUN/Creatinine Ratio Glucose POC Glucose 184 H 156 H Calcium Procalcitonin Adenovirus (PCR) Not Detected B. pertussis DNA (PCR) Not Detected B.parapertussis DNA PCR Not Detected C. pneumoniae DNA (PCR) Not Detected Coronavirus OC43 (PCR) Not Detected Coronavirus HKU1 (PCR) Not Detected Coronavirus 229E (PCR) Not Detected SARS-CoV-2 (PCR) Not Detected Coronavirus NL63 (PCR) Not Detected Human Metapneumovir PCR Not Detected Influenza Type A (PCR) Not Detected Influenza Type B (PCR) Not Detected M. pneumoniae (PCR) Not Detected Parainfluenza 1 (PCR) Not Detected Parainfluenza 2 (PCR) Not Detected Parainfluenza 3 (PCR) Not Detected Parainfluenza 4 (PCR) Not Detected RSV (PCR) Not Detected Entero/Rhino (PCR) Not Detected 07/10/25 07/10/25 07/10/25 02:31 05:42 07:13 WBC 12.78 H RBC 2.51 L Hgb 7.7 L Hct 24.2 L MCV 96.4 MCH 30.7 MCHC 31.8 L RDW Std Deviation 50.2 H RDW Coeff of Evelyn 14.7 H Plt Count 231 MPV 10.4 Immature Gran % (Auto) 2.4 Neut % (Auto) 76.3 Lymph % (Auto) 10.2 Long % (Auto) 9.6 Eos % (Auto) 1.0 Baso % (Auto) 0.5 Neut # (Auto) 9.75 H Lymph # (Auto) 1.30 Long # (Auto) 1.23 H Eos # (Auto) 0.13 Baso # (Auto) 0.06 Immature Gran # (Auto) 0.31 H Polychromasia 1+ Sodium 138 Potassium 3.7 Chloride 100 Carbon Dioxide 28 Anion Gap 10 BUN 42 H Creatinine 5.59 H* D Est Cr Clr Drug Dosing 9.0 eGFR 7.64 BUN/Creatinine Ratio 7.5 L Glucose 178 H POC Glucose 208 H 205 H Calcium 8.5 L Procalcitonin Adenovirus (PCR) B. pertussis DNA (PCR) B.parapertussis DNA PCR C. pneumoniae DNA (PCR) Coronavirus OC43 (PCR) Coronavirus HKU1 (PCR) Coronavirus 229E (PCR) SARS-CoV-2 (PCR) Coronavirus NL63 (PCR) Human Metapneumovir PCR Influenza Type A (PCR) Influenza Type B (PCR) M. pneumoniae (PCR) Parainfluenza 1 (PCR) Parainfluenza 2 (PCR) Parainfluenza 3 (PCR) Parainfluenza 4 (PCR) RSV (PCR) Entero/Rhino (PCR) PG Care Time/CCT Total # of Minutes Spent Total Time Spent with Patient: 50-minutes provided today to review progress notes, laboratory results, interview and examined patient, discuss goals of care with patient, order epogen and follow up iron studies, update medical record Coding Level of Care Code 87819 SUB INP/OBS CARE 3/50MIN Diagnoses ESRD (end stage renal disease) on dialysis N18.6; Z99.2 Anemia D64.9 Ambulatory dysfunction R26.2
[2025-07-10 09:39] LABS: Iron < 10 mcg/dl (35-150); Total Iron Binding Cap Calc 155 mcg/dl (250-450); Transferrin 111 mg/dl (200-360)
[2025-07-10 09:44] LABS: Appearance Urine Cloudy (Clear); Bacteria Urine Automated 2+ (None Seen); Glucose Urine UA Negative (Negative); RBC Urine Automated >20 /hpf (0-2); WBC Urine Automated 21-50 /hpf (0-5)
[2025-07-10 09:58] LABS: Ferritin 1057.9 ng/ml (8-388)
--- NOTE | 2025-07-10 10:02 | Hospitalist Progress Note ---
Date of Service July 10, 2025 Assessment & Plan (1) Pneumonia: (2) CAD (coronary artery disease): (3) ESRD (end stage renal disease) on dialysis: (4) Diabetes mellitus with insulin therapy: (5) Memory loss: Plan This is a 70 year old female with a PMH of ESRD on HD, DM2, CAD; coming in due to sepsis secondary to bilateral pneumonia. Sepsis 2/2 bilateral pneumonia With leukocytosis, markedly elevated Pro-Jase of 35 (limited somewhat by renal clearance) on admission CTchest 06/29: Ninth rib fracture without pneumo. Bilateral lower lobe pneumonia with trace effusions. Initially clinically progressed on vancomycin/Zosyn. Leukocytosis down t rended/normalized. Given poor clinical appearance, fatigue, some cough. She has a recurrent fever 07/09 and rising left shift. XR: Shows persistent pulmonary edema, small bilateral pleural effusions but bibasilar opacities from which pneumonia is not excluded. QT is not prolonged. Will treat with Zosyn given hospital exposure, include atypical coverage with doxycycline which will also provide some MRSA coverage. If worsening then would need expansion to vancomycin. BioFire is pending. Oliguric at baseline, no urinary symptoms She is clinically progressing and appears to be improved 07/10, white count is equivocal and left shift is starting to downtrend. Would continue current antibiotics and ensure that she defervesce is for a full 24 hours prior to discharge. If doing well possible discharge 07/11 on Augmentin/doxycycline. PT/OT following ESRD on HD Nephro following Chest x-ray remains with some volume overload although overall acceptable. Potassium 3.4. Creatinine 4.32. Oliguric at baseline Fistula is working appropriately, able to have dialysis through this 4 times. Discussed tunneled catheter with nephrology, they will have this arranged for removal as outpatient through HD unit CAD Volume status managed via dialysis Continue aspirin, carvedilol, Entresto No chest pain Type II DM Aspart CF 30 CR 8 BSG control labile, overall improved and not hypoglycemic at time of assessment Anemia of chronic disease, ESRD, ?iron deficiency Hemoglobin generally 810. No acute bleeding Trend daily Transfuse if needed for less than 7 or ischemia with less than 8. Otherwise continue EPO per nephrology recommendation B12 593 recently, not suppressed Iron studies 07/2025 limited. Serum iron unreliable and was low; transferrin was critically low likely reflective of underlying chronic disease and nutritional status. TIBC could not be performed, and ferritin was markedly elevated although this is likely as a phase reactant in the setting of her acute pneumonia. Prealbumin has been low, 2.6 in the past and with low transferrin likely reflective of underlying protein malnutrition. Continue boost and iron polysaccharide Hypertension Amlodipine and other cardiac meds continued. Hold amlodipine prior to dialys is DVT prophylaxis: Heparin subcu Diet: Renal CODE STATUS: DNR/DNI Admission and Anticipated Discharge Date Admission Date: June 29, 2025 Subjective Mariza seen the bedside this morning. She actually open she is feeling a little bit better. Color improved, pallor improved. Continues to have a dry cough but she thinks that this is starting to improve. Denies fever/chills overnight. No chest pain or chest pressure. updated by phone, extensive review of her history presentation and current treatment given. No additional questions at time of call Physical Exam Physical Exam: General: Alert and oriented, energy improved HEENT: Atraumatic, normocephalic. Vision and hearing grossly intact Thorax: Right tunneled catheter in place, C/D/I. Nontender. No erythema. No purulence/fluctuance Pulm: Bibasilar crackles. Symmetrical chest rise. No increased work of breathing. No respiratory distress. Cardiac: RRR, -mrg. Radial pulses intact and symmetrical. Abdominal: Nontender, nondistended, soft Extremities: Right upper extremity fistula intact with good thrill. Moves all extremities Results & Data Results & Data Vital Signs (Past 12 Hours) Vital Signs Temp Pulse Pulse Pulse Resp BP BP 07/10/25 07:43 36.4 C L 67 15 111/66 07/10/25 06:00 37.1 C 07/10/25 06:00 69 16 116/57 L 07/09/25 23:39 36.6 C 71 16 143/76 H 07/09/25 23:00 69 Pulse Ox O2 Del Method O2 Flow Rate 07/10/25 07:43 92 Nasal Cannula 2 07/10/25 06:00 07/10/25 06:00 98 Nasal Cannula 3 07/09/25 23:39 98 Nasal Cannula 4 07/09/25 23:00 PG Care Time/CCT Total # of Minutes Spent Total Time Spent with Patient: Total time spent is greater than 50% in coordination of care (as documented) at patient's floor/unit and/or counseling patient: Coding Level of Care Code 06249 SUB INP/OBS CARE MIN Diagnoses Pneumonia J18.9 Laterality: unspecified laterality Lung location: unspecified part of lung Pneumonia type: due to unspecified organism CAD (coronary artery disease) I25.10 ESRD (end stage renal disease) on dialysis N18.6; Z99.2 Diabetes mellitus with insulin therapy E11.9; Z79.4 Memory loss R41.3 (1) Pneumonia Laterality: unspecified laterality Lung location: unspecified part of lung Pneumonia type: due to unspecified organism Qualified Code(s): J18.9 - Pneumonia, unspecified organism
[2025-07-10] MEDS: EPOETIN ALFA 10,000 UNITS/ML VIAL SQ ONE (10:44)
--- NOTE | 2025-07-10 13:33 | Pharmacy Report ---
Pharmacy Glycemic Short Note 2 - Date of Service July 10, 2025 - Glycemic Short BSG Results (Last 24 hours): 07/09/25 07/09/25 07/10/25 16:28 20:09 02:31 Glucose POC Glucose 184 H 156 H 208 H 07/10/25 07/10/25 07/10/25 05:42 07:13 10:57 Glucose 178 H POC Glucose 205 H 287 H OUTPATIENT ANTIDIABETIC REGIMEN: * Tresiba 16 units SC HS * Humalog 3 units SC with breakfast and lunch, 5 units with dinner * Patient's A1c = 8.5% today. * However, this result is likely somewhat unreliable in ESRD patients d/t interactions between the A1c analyzing technique and high levels of urea in ESRD, reduced RBC life span, iron deficiency anemia, and EPO administration. HbA1c > 7.5% in ESRD patient may overestimate the extent of hyperglycemia in ESRD patients. ASSESSMENT: 07/10: * Patient received total of 15 units of insulin, of which 8 units were basal insulin * Fasting BSG 178 mg/dL - will provide small increase in tonight's dose * Tighter CR this AM 07/09: * Patient received total of 29 units of insulin yesterday, of which 18 units were basal * Fasting BSG low 65 mg/dL - treated per hypoglycemia protocol/given apple juice * Will decrease basal insulin by ~45% for this evenings dose 09/07: * BSGs ranged 91-194 mg/dL yesterday, required 20 units of correctional/pranidal, 18 units of basal * Will continue with 18 units of glargine this evening- monitor 07/07: * BSGs ranged 150-280 in past 48 hours with patient requiring 34-40 units total of insulin * Highest value of 279 last night, patient did not receive insulin due to being in dialysis so this may explain the spike in BSG last night * Will continue with the same CF and CR as meal coverage looks appropriate for now * Increased glargine scale a bit due to elevated AM glucoses for the past couple of days * T2DM diet * Next HD planned for 07/08 07/05: * Patient received a total of 28 units of insulin yesterday, 10 of which were basal. * BSGs yesterday were [phone] mg/dL and fasting BSG 204 mg/dL. * Will slightly increase Lantus scale this evening. * Patient is tolerating a diet and next HD planned for 07/06. 07/03: * Blood sugars elevated yesterday and so far today, possibly related to reduction in basal insulin * Hemodialysis on 07/01/25, next scheduled session is 07/04 * Novolog tightened yesterday and will further tighten carb ratio today 07/01: * Mariza received 31 units of insulin yesterday, 14 of which were basal. BSGs were: [phone] mg/dL. * Fasting BSG this AM was 74 mg/dL. This is well below goal. Will reduce basal insulin this evening to provide a maximum of 10 units per BSG check at bedtime. This would represent at least a 30% reduction in basal dose. * Given trend downward in postprandial BSGs yesterday, will loosen correction factor and carb ratio today. Want to prevent hypoglycemia. * Remains on Vanc and Zosyn. Tolerating T2DM diet. HD scheduled for 3 hours today. Next session to be Friday. 06/30: * Pt is a 70 YOF admitted with bilateral pneumonia. History of ESRD on HD MWF and DM2 on insulin therapy at home. Pharmacy consulted to assist with inpatient glycemic management. * BSGs [phone]/dL since admission. Received 12 units of basal and 3 units of bolus insulin yesterday. * Diet ordered, receiving IV antibiotics. HD scheduled for tomorrow. * Increase basal to 14 units tonight given fasting BSG >180mg/dL. Tightened Novolog at lunch from 35/12 to 30/11 for improved prandial coverage. PLAN FOR INPATIENT GLYCEMIC CONTROL: * Basal insulin * Lantus 10-12 units HS * Bolus insulin * NovoLog per scale ACHS or Q6hrs while NPO * Goal Range: Low 120 mg/dL - High 150 mg/dL * Correction Factor: 30 mg/dL/unit * Nutritional / Prandial insulin per carb ratio of 1 unit per 9 grams CHO consumed
[2025-07-11 06:24] LABS: Hematocrit (blood only) 24.4 % (37.0-47.0); Hemoglobin 7.9 g/dl (12.0-16.0); Immature Granulocytes # (auto) 0.23 K/uL (0.01-0.20); Immature Granulocytes % (auto) 1.9 %; Mean Corpuscular Hemoglobin 30.9 pg (25.0-34.0); Mean Corpuscular Volume 95.3 fL (80.0-100.0); Platelet Count 229 K/uL (130-400); RDW Standard Deviation 50.0 fL (36.4-46.3); Red Blood Count 2.56 M/uL (4.20-5.40); White Blood Count 11.90 K/ul (4.8-10.8)
[2025-07-11 06:48] LABS: Polychromasia 1+
[2025-07-11 06:52] LABS: Anion Gap 11.0 (3-11); Blood Urea Nitrogen 61.0 mg/dl (6-23); Calcium 8.5 mg/dl (8.6-10.3); Carbon Dioxide 26.0 mmol/L (21-32); Chloride 100.0 mmol/L (98-107); Creatinine Clr Calc Pharmacy 7.5 ml/min; Glucose 95.0 mg/dl (70-99(Fasting)); Potassium 3.4 mmol/L (3.5-5.1); Sodium 137.0 mmol/L (136-145)
[2025-07-11] MEDS ORDERED: SODIUM CHLORIDE 0.9% 1,000 ML IV PRN (07:00)
--- NOTE | 2025-07-11 07:59 | Hospitalist Progress Note ---
Date of Service July 11, 2025 Assessment & Plan (1) Pneumonia: (2) CAD (coronary artery disease): (3) ESRD (end stage renal disease) on dialysis: (4) Diabetes mellitus with insulin therapy: (5) Memory loss: Plan This is a 70 year old female with a PMH of ESRD on HD, DM2, CAD; coming in due to sepsis secondary to bilateral pneumonia. Sepsis 2/2 bilateral pneumonia With leukocytosis, markedly elevated Pro-Jase of 35 (limited somewhat by renal clearance) on admission CTchest 06/29: Ninth rib fracture without pneumo. Bilateral lower lobe pneumonia with trace effusions. Initially clinically progressed on vancomycin/Zosyn. Leukocytosis down trended/normalized. Given poor clinical appearance, fatigue, some cough. She has a recurrent fever 07/09 and rising left shift. XR: Shows persistent pulmonary edema, small bilateral pleural effusions but bibasilar opacities from which pneumonia is not excluded. QT is not prolonged. Will treat with Zosyn given hospital exposure, include atypical coverage with doxycycline which will also provide some MRSA coverage. If worsening then would need expansion to vancomycin. BioFire is pending. Oliguric at baseline, no urinary symptoms She is clinically progressing and appears to be improved 07/10, white count is equivocal and left shift is starting to downtrend. Would continue current antibiotics and ensure that she defervesce is for a full 24 hours prior to discharge. If doing well possible discharge 07/12 on Augmentin/doxycycline. PT/OT following ESRD on HD Nephro following Chest x-ray remains with some volume overload although overall acceptable. Potassium 3.4. Creatinine 4.32. Oliguric at baseline Fistula is working appropriately, able to have dialysis through this 4 times. Discussed tunneled catheter with nephrology, they will have this arranged for removal as outpatient through HD unit CAD Volume status managed via dialysis Continue aspirin, carvedilol, Entresto No chest pain Type II DM Aspart CF 30 CR 8 BSG control labile, overall improved and not hypoglycemic at time of assessment Anemia of chronic disease, ESRD, ?iron deficiency Hemoglobin generally 810. No acute bleeding 1 unit on 07/01 prbc, epogen 10,000 u 07/10/25 Transfuse if needed for less than 7 or ischemia with less than 8. Otherwise continue EPO per nephrology recommendation B12 [id number] recently, not suppressed Iron studies 07/2025 limited. Serum iron unreliable and was low; transferrin was critically low likely reflective of underlying chronic disease and nutritional status. TIBC could not be performed, and ferritin was markedly elevated although this is likely as a phase reactant in the setting of her acute pneumonia. Prealbumin has been low, 2.6 in the past and with low transferrin likely reflective of underlying protein malnutrition. Continue boost and iron polysaccharide Hypertension Amlodipine and other cardiac meds continued. BP did well with Holding amlodipine prior to dialysis DVT prophylaxis: Heparin subcu Diet: Renal CODE STATUS: DNR/DNI Admission and Anticipated Discharge Date Admission Date: June 29, 2025 Subjective Pt completed HD today, is a bit fatigued, she is concerned about her leg weakness, but is supportive of rehab remains on antibiotics did call sister and updated Physical Exam Physical Exam: lungs are diminished at the bases cardiac is regular without murmur extremities without edema Results & Data Results & Data Vital Signs (Past 12 Hours) Vital Signs Temp Pulse Pulse Resp BP Pulse Ox O2 Del Method 07/11/25 03:43 97.7 F 58 L 18 136/52 L 96 Nasal Cannula 07/11/25 00:47 98.1 F 61 17 109/42 L 95 Nasal Cannula 07/10/25 22:00 58 L 07/10/25 20:00 Nasal Cannula O2 Flow Rate 07/11/25 03:43 2 07/11/25 00:47 2 07/10/25 22:00 07/10/25 20:00 2 Laboratory Results review cbc, has anemia of chronic disease review chemistry pre dialysis with elevated Cr, mildly low potassium elevated glucose but pt did have candy bars PG Care Time/CCT Total # of Minutes Spent Total Time Spent with Patient: Total time spent is greater than 50% in coordination of care (as documented) at patient's floor/unit and/or counseling patient: Coding Level of Care Code 61468 SUB INP/OBS CARE 3/50MIN Diagnoses Pneumonia J18.9 Laterality: unspecified laterality Lung location: unspecified part of lung Pneumonia type: due to unspecified organism CAD (coronary artery disease) I25.10 ESRD (end stage renal disease) on dialysis N18.6; Z99.2 Diabetes mellitus with insulin therapy E11.9; Z79.4 Memory loss R41.3 (1) Pneumonia Laterality: unspecified laterality Lung location: unspecified part of lung Pneumonia type: due to unspecified organism Qualified Code(s): J18.9 - Pneumonia, unspecified organism
--- NOTE | 2025-07-11 08:51 | Nephrology Progress Note ---
Date of Service July 11, 2025 Assessment & Plan (1) ESRD (end stage renal disease) on dialysis: Plan: * ESKD due to DKD, hypertension, and calcific vascular disease * Outpatient Rx: MWF at [facility] (Dr. Arnold) 3 hrs Fx CorAL 80 350/800 via AVF (TDC waiting for removal), 2K 2.5Ca 35HCO3 EDW 65 kg. * HD orders were entered into EMR and treatment goals discussed w/ dialysis staff. Will attempt 2 L UF today as guided by BP/Crit-line monitor * Will order BMP, CBC for am (2) Anemia: Plan: * s/p 1 unit PRBC with HD 07/01 * Hgb 7.9 this am * Will provide 10,000 units epogen w/ HD today * Will order venofer 300 mg IV daily x3 days * Monitor H&H (3) Ambulatory dysfunction: Plan: * Continue PT. 07/07/25 evaluation recommended acute rehab Admission and Anticipated Discharge Date Admission Date: June 29, 2025 Subjective Ms. Quezada was evaluated while on HD this morning. She denied fever, dyspnea, productive cough or overt blood loss. She is anxious to have more physical therapy and walk Review of Systems Constitutional: no fever Eyes: no problem reported Ear, Nose, Mouth, Throat: no problem reported Respiratory: no cough and no dyspnea Cardiovascular: no chest pain Gastrointestinal: no abdominal pain, no nausea, no vomiting and no diarrhea/loose stools Integumentary: no rash Neurologic: no problem reported Physical Exam Constitutional: not in distress Eyes: PERRL, conjunctivae normal, anicteric sclerae ENMT: external ear and nose normal, oropharynx normal Neck: trachea midline, no thyromegaly Respiratory: normal respiratory effort, lungs clear to auscultation Cardiovascular: RRR, no murmur, no edema Gastrointestinal (Abdomen): normal bowel sounds, soft, nontender, no hepatosplenomegaly Skin: no rashes, warm and dry Neurologic: no focal motor deficits Results & Data Vital Signs (Past 12 Hours) Vital Signs Temp Pulse Pulse Resp BP Pulse Ox O2 Del Method 07/11/25 07:58 36.7 C 60 18 132/48 L 96 Nasal Cannula 07/11/25 03:43 36.5 C 58 L 18 136/52 L 96 Nasal Cannula 07/11/25 00:47 36.7 C 61 17 109/42 L 95 Nasal Cannula 07/10/25 22:00 58 L O2 Flow Rate 07/11/25 07:58 3 07/11/25 03:43 2 07/11/25 00:47 2 07/10/25 22:00 Laboratory Results Laboratory Results - last 24 hr 07/10/25 07/10/25 07/10/25 05:42 10:57 16:01 WBC RBC Hgb Hct MCV MCH MCHC RDW Std Deviation RDW Coeff of Evelyn Plt Count MPV Immature Gran % (Auto) Neut % (Auto) Lymph % (Auto) [place] % (Auto) Eos % (Auto) Baso % (Auto) Neut # (Auto) Lymph # (Auto) [place] # (Auto) Eos # (Auto) Baso # (Auto) Immature Gran # (Auto) Polychromasia Sodium Potassium Chloride Carbon Dioxide Anion Gap BUN Creatinine Est Cr Clr Drug Dosing eGFR BUN/Creatinine Ratio Glucose POC Glucose 287 H 261 H Calcium Iron < 10 L TIBC 155 L Transferrin 111 L Transferrin % Sat TNP Ferritin 1057.9 H Urine Color Urine Appearance Urine pH Ur Specific [place] Urine Protein Urine Glucose (UA) Urine Ketones Urine Blood Urine Nitrite Urine Bilirubin Urine Urobilinogen Ur Leukocyte Esterase Urine WBC (Auto) Urine RBC (Auto) U Hyaline Cast (Auto) U Epithel Cells (Auto) Urine Bacteria (Auto) Urine Yeast Urine Comment 07/10/25 07/10/25 07/11/25 20:50 Unknown 05:45 WBC 11.90 H RBC 2.56 L Hgb 7.9 L Hct 24.4 L MCV 95.3 MCH 30.9 MCHC 32.4 RDW Std Deviation 50.0 H RDW Coeff of Evelyn 14.6 H Plt Count 229 MPV 10.5 Immature Gran % (Auto) 1.9 Neut % (Auto) 73.5 Lymph % (Auto) 13.2 [place] % (Auto) 8.9 Eos % (Auto) 2.1 Baso % (Auto) 0.4 Neut # (Auto) 8.74 H Lymph # (Auto) 1.57 [place] # (Auto) 1.06 H Eos # (Auto) 0.25 Baso # (Auto) 0.05 Immature Gran # (Auto) 0.23 H Polychromasia 1+ Sodium 137 Potassium 3.4 L Chloride 100 Carbon Dioxide 26 Anion Gap 11 BUN 61 H Creatinine 6.87 H* D Est Cr Clr Drug Dosing 7.5 eGFR 5.96 BUN/Creatinine Ratio 8.9 L Glucose 95 POC Glucose 130 H Calcium 8.5 L Iron TIBC Transferrin Transferrin % Sat Ferritin Urine Color Dark Yellow Urine Appearance Cloudy A Urine pH 5.0 Ur Specific [place] 1.019 Urine Protein 3+ H Urine Glucose (UA) Negative Urine Ketones Trace H Urine Blood Negative Urine Nitrite Negative Urine Bilirubin Negative Urine Urobilinogen Negative Ur Leukocyte Esterase 2+ H Urine WBC (Auto) 21-50 H Urine RBC (Auto) >20 H U Hyaline Cast (Auto) 3-5 H U Epithel Cells (Auto) 6-10 H Urine Bacteria (Auto) 2+ H Urine Yeast Present A Urine Comment 07/11/25 07:22 WBC RBC Hgb Hct MCV MCH MCHC RDW Std Deviation RDW Coeff of Evelyn Plt Count MPV Immature Gran % (Auto) Neut % (Auto) Lymph % (Auto) [place] % (Auto) Eos % (Auto) Baso % (Auto) Neut # (Auto) Lymph # (Auto) [place] # (Auto) Eos # (Auto) Baso # (Auto) Immature Gran # (Auto) Polychromasia Sodium Potassium Chloride Carbon Dioxide Anion Gap BUN Creatinine Est Cr Clr Drug Dosing eGFR BUN/Creatinine Ratio Glucose POC Glucose 102 H Calcium Iron TIBC Transferrin Transferrin % Sat Ferritin Urine Color Urine Appearance Urine pH Ur Specific [place] Urine Protein Urine Glucose (UA) Urine Ketones Urine Blood Urine Nitrite Urine Bilirubin Urine Urobilinogen Ur Leukocyte Esterase Urine WBC (Auto) Urine RBC (Auto) U Hyaline Cast (Auto) U Epithel Cells (Auto) Urine Bacteria (Auto) Urine Yeast Urine Comment PG Care Time/CCT Total # of Minutes Spent Total Time Spent with Patient: 50-minutes provided today to review progress notes, laboratory results, interview and examine patient, discuss goals of care with patient, order epogen and venofer, update medical record Coding Level of Care Code 43342 SUB INP/OBS CARE 3/50MIN Diagnoses ESRD (end stage renal disease) on dialysis N18.6; Z99.2 Anemia D64.9 Ambulatory dysfunction R26.2
[2025-07-11] MEDS: IRON SUCROSE 300 MG in SODIUM CHLORIDE 0.9% 250 ML IV SCH (09:28)
[2025-07-11] MEDS: EPOETIN ALFA 10,000 UNITS/ML VIAL IV ONE (12:04)
[2025-07-12 07:50] LABS: Hematocrit (blood only) 28.0 % (37.0-47.0); Hemoglobin 8.8 g/dl (12.0-16.0); Mean Corpuscular Hemoglobin 30.2 pg (25.0-34.0); Mean Corpuscular Volume 96.2 fL (80.0-100.0); Platelet Count 276 K/uL (130-400); RDW Standard Deviation 49.5 fL (36.4-46.3); Red Blood Count 2.91 M/uL (4.20-5.40); White Blood Count 10.18 K/ul (4.8-10.8)
[2025-07-12 08:24] LABS: Anion Gap 11.0 (3-11); Calcium 8.7 mg/dl (8.6-10.3); Carbon Dioxide 25.0 mmol/L (21-32); Chloride 102.0 mmol/L (98-107); Potassium 3.4 mmol/L (3.5-5.1); Sodium 138.0 mmol/L (136-145)
[2025-07-12 08:33] LABS: Blood Urea Nitrogen 41.0 mg/dl (6-23); Creatinine Clr Calc Pharmacy 9.8 ml/min; Glucose 196.0 mg/dl (70-99(Fasting))
[2025-07-12 08:43] VITALS: TEMP 97.7; O2SAT 100
--- NOTE | 2025-07-12 08:54 | Nephrology Progress Note ---
Date of Service July 12, 2025 Assessment & Plan (1) ESRD (end stage renal disease) on dialysis: Plan: * ESKD due to DKD, hypertension, and calcific vascular disease * Outpatient Rx: MWF at [facility] (Dr. Arnold) 3 hrs Fx CorAL 80 350/800 via AVF (TDC waiting for removal), 2K 2.5Ca 35HCO3 EDW 65 kg. * Volume status and electrolyte balance are acceptable. Will plan next HD for am * Will order BMP, CBC for am (2) Anemia: Plan: * s/p 1 unit PRBC with HD 07/01 * Hgb 8.8 this am * Epogen 10,000 units provided w/ HD 07/11/25 * Day #2 of 3 IV venofer * Continue to monitor H&H (3) Ambulatory dysfunction: Plan: * PT held yesterday due to HD * Case management working on arrangements for transfer to [facility] in Loc[facility] within [facility] Admission and Anticipated Discharge Date Admission Date: June 29, 2025 Subjective Ms. Quezada was evaluated in her hospital room this morning. She was dialyzed yesterday for 2.2 L UF. No complications. She denied fever, dyspnea, productive cough or overt blood loss. Review of Systems Constitutional: no fever Eyes: no problem reported Ear, Nose, Mouth, Throat: no problem reported Respiratory: no cough and no dyspnea Cardiovascular: no chest pain Gastrointestinal: no abdominal pain, no nausea, no vomiting and no diarrhea/loose stools Integumentary: no rash Neurologic: no problem reported Physical Exam Constitutional: not in distress Eyes: PERRL, conjunctivae normal, anicteric sclerae ENMT: external ear and nose normal, oropharynx normal Neck: trachea midline, no thyromegaly Respiratory: normal respiratory effort, lungs clear to auscultation Cardiovascular: RRR, no murmur, no edema Gastrointestinal (Abdomen): normal bowel sounds, soft, nontender, no hepatosplenomegaly Skin: no rashes, warm and dry Neurologic: no focal motor deficits Results & Data Vital Signs (Past 12 Hours) Vital Signs Temp Pulse Pulse Resp BP Pulse Ox O2 Del Method 07/12/25 08:39 36.5 C 67 13 152/62 H 100 Nasal Cannula 07/12/25 08:15 65 07/12/25 03:36 36.9 C 62 16 133/52 L 95 Nasal Cannula 07/11/25 23:00 37.2 C 69 16 130/47 L 96 Nasal Cannula 07/11/25 21:45 66 O2 Flow Rate 07/12/25 08:39 2 07/12/25 08:15 07/12/25 03:36 2 07/11/25 23:00 2.5 07/11/25 21:45 Laboratory Results Laboratory Results - last 24 hr 07/11/25 07/11/25 07/11/25 12:59 16:43 16:46 WBC RBC Hgb Hct MCV MCH MCHC RDW Std Deviation RDW Coeff of Evelyn Plt Count MPV Sodium Potassium Chloride Carbon Dioxide Anion Gap BUN Creatinine Est Cr Clr Drug Dosing eGFR BUN/Creatinine Ratio Glucose POC Glucose 126 H 316 H* 326 H* Calcium 07/11/25 07/12/25 07/12/25 20:28 07:10 07:30 WBC 10.18 RBC 2.91 L Hgb 8.8 L Hct 28.0 L MCV 96.2 MCH 30.2 MCHC 31.4 L RDW Std Deviation 49.5 H RDW Coeff of Evelyn 14.9 H Plt Count 276 MPV 10.2 Sodium 138 Potassium 3.4 L Chloride 102 Carbon Dioxide 25 Anion Gap 11 BUN 41 H D Creatinine 4.74 H* D Est Cr Clr Drug Dosing 9.8 eGFR 9.31 BUN/Creatinine Ratio 8.6 L Glucose 196 H POC Glucose 277 H 200 H Calcium 8.7 PG Care Time/CCT Total # of Minutes Spent Total Time Spent with Patient: 50-minutes provided today to review progress notes, laboratory results, interview and examine patient, discuss goals of care with patient, order venofer, review PT and case management notes, update medical record Coding Level of Care Code 43970 SUB INP/OBS CARE 3/50MIN Diagnoses ESRD (end stage renal disease) on dialysis N18.6; Z99.2 Anemia D64.9 Ambulatory dysfunction R26.2
[2025-07-12 10:59] VITALS: BP 152/70; RESP 16
[2025-07-12 13:22] VITALS: PULSE 65
--- NOTE | 2025-07-12 18:31 | Discharge Summary ---
Discharge Summary Date of Service July 12, 2025 Principal Dx & Hospital Course #1 = Principal Diagnosis (1) Pneumonia: (2) CAD (coronary artery disease): (3) ESRD (end stage renal disease) on dialysis: (4) Diabetes mellitus with insulin therapy: (5) Memory loss: Plan This is a 70 year old female with a PMH of ESRD on HD, DM2, CAD; coming in due to sepsis secondary to bilateral pneumonia. Sepsis 2/2 bilateral pneumonia With leukocytosis, markedly elevated Pro-Jase of 35 (limited somewhat by renal clearance) on admission CTchest 06/29: Ninth rib fracture without pneumo. Bilateral lower lobe pneumonia with trace effusions. Initially clinically progressed on vancomycin/Zosyn. Leukocytosis down trended/normalized. Given poor clinical appearance, fatigue, some cough. She has a recurrent fever 07/09 and rising left shift. XR: Shows persistent pulmonary edema, small bilateral pleural effusions but bibasilar opacities from which pneumonia is not excluded. QT is not prolonged. Will treat with Zosyn given hospital exposure, include atypical coverage with doxycycline which will also provide some MRSA coverage. BioFire 07/09 negative discharge 07/12 on Augmentin/doxycycline. Patient will be in rehab portion of her facility ESRD on HD Nephro continue to manage postdischarge Fistula is working appropriately, able to have dialysis through this 4 times. Discussed tunneled catheter with nephrology, they will have this arranged for removal as outpatient through HD unit CAD Volume status managed via dialysis Continue aspirin, carvedilol, Entresto Type II DM Aspart CF 30 CR 8 BSG control labile, overall improved and not hypoglycemic Anemia of chronic disease, ESRD, ?iron deficiency Hemoglobin generally 810. No acute bleeding 1 unit on 07/01 prbc, epogen 10,000 u 07/10/25 B12 593 recently, Iron studies 07/2025 limited. Received iron infusion prior to discharge Hypertension Amlodipine and other cardiac meds continued. BP did well with Holding amlodipine prior to dialysis CODE STATUS: DNR/DNI Notes For Next Care Provider Manipulation of BP meds prior to dialysis seems of proven to be with more tolerable dialysis for the patient Admission HPI Per Admitting Provider 70 yo female with PMH of ESRD on dialysis, CAD, and IDDM arrives for worsening generalized weakness. Patient is a poor historian and her sister Racheal helped provide information. Patient was recently discharged form outside facility for weakness and hypoglycemia. Patient spent a few weeks at rehab and was discharged a week ago. Patient has sustained multiple falls at home. Patient went to the [facility] ED for foot pain but was sent home. As patient continued to feel weak, patient was brought to our facility Discharge Exam Pleasant female eating lunch no apparent distress card exam regular lungs are diminished at the base Discharge Plan Discharge Items Patient Disposition: Transfer [facility] Fac Reason For Visit: PNEUMONIA Discharge Diagnosis: Sepsis secondary to pneumonia End-stage renal disease on dialysis Anemia status posttransfusion and erythropoietin Condition on Discharge: Serious Activity: Per Instructions section Activity Comment: PT OT evaluation and treat Non-emergency contact: Primary Care Provider and Setter Out Call non-emergency contact if: your symptoms worsen Follow-up/Referrals: Natalio Valero [Primary Care Provider] - Diet: Dialysis Renal Addtl Attending Provider Instructions: He had a serious infection from your pneumonia but you are recovering well. He will be given additional 5 days of antibiotics to continue after discharge. Addtl Behavioral Technician Provider Instructions: DIABETES RECOMMENDATIONS: 1.) Insulin dose recommendations (from Endocrinology): - Tresiba (long-acting insulin): 14 units PM daily - Humalog (quick-acting/meal insulin): 3 units with breakfast, 3 units with lunch, 5 units with supper 2.) If interested, add Humalog sliding scale to help improve BG values above target quicker. - 1 unit of Humalog will lower your blood sugar ~45 points. - Add this extra Humalog to your meal coverage (above) when your before meal blood sugar is above 150. - Use before meals only! Do not use after meals or within 4 hours of prior Humalog dose. Blood Sugar Extra Humalog Coverage 70 - 99 Subtract 1 unit 100 - 150 No Change 151 - 195 Add 1 unit 196 - 240 Add 2 units 241 - 285 Add 3 units 286 - 330 Add 4 units 331 - 375 Add 5 units 376 - 420 Add 6 units Above 420 Add 7 units 3.) Aim to maintain blood sugar levels below 180 (ideally below 150 before meals) to support healing/strengthening. Pending Studies at Discharge: No Stand-Alone Forms: My [facility] Skilled Items Patient informed of condition?: Yes DNR: Yes Discharge Level of Care: Acute rehab Communicable Disease: No Discharge Prognosis: Stable Lines: Reyes Urinary Catheter: No Medications and DC Order Prescriptions: New Renal Caps 1 mg Capsule 1 cap PO QAM Qty: 30 4RF amoxicillin-pot clavulanate 875-125 mg tablet 1 tab PO BID Qty: 10 0RF doxycycline hyclate 100 mg tablet 100 mg PO BID 5 Days Qty: 10 0RF Continued clopidogrel [Plavix] 75 mg tablet 75 mg PO DAILY ezetimibe [Zetia] 10 mg tablet 10 mg PO DAILY famotidine 40 mg tablet 40 mg PO DAILY rosuvastatin 10 mg tablet 10 mg PO DAILY sertraline 50 mg tablet 50 mg PO DAILY aspirin [Adult Low Dose Aspirin] 81 mg tablet,delayed release (DR/EC) 81 mg PO DAILY Rayaldee 30 mcg capsule,extended release 24 hr 30 mcg PO DAILY gabapentin 100 mg Tablet 100 mg PO DAILY Karissa-Kassidy 0.8 mg Tablet 1 tab PO DAILY amlodipine 2.5 mg Tablet 2.5 mg PO DAILY Qty: 0 0RF sacubitril-valsartan [Entresto] 24-26 mg tablet 1 tab PO BID Qty: 0 0RF Changed carvedilol 25 mg tablet 12.5 mg PO BID Qty: 0 0RF Patient Comments: 12.5mg BID Rx Instructions: must administer with a meal/food insulin lispro [Humalog KwikPen Insulin] 100 unit/mL insulin pen See Rx Instructions subcut TID Qty: 15 5RF Rx Instructions: inject 3 units prior to Breakfast and lunch , and 5 units prior to Dinner , sliding scale +1 unit for every 45 over 150 Subtract 1 unit from meal insulin if blood glucose less than 100 insulin degludec [Tresiba FlexTouch U-100] 100 unit/mL (3 mL) insulin pen 14 unit SUBCUT QPM Qty: 0 0RF No Action (DME) FreeStyle [place] 2 Sensor Kit See Rx Instructions .ROUTE Rx Instructions: As directed Discharge Orders: Discharge Order (Routine); Ordered 07/12/25 Ordered By: Dimitry Martins Admission Data Admit Date/Time: 06/29/25 17:10 Attending Provider: Dimitry Martins Admit Provider: Earle Singleton Primary Care Provider: Natalio Valero Other Providers: Juice Woodall; Sara Reeder Kevin C.; Britt Leary; [facility] Other Interventions: Discharge Summary Assessment (RN) Last Done: 07/12/25 13:20 Hospital Stay Data Consultations 06/29/25 16:47 ED Decision to Admit Stat 06/29/25 17:22 Consult Nephrology Routine Diagnostic Imagining Performed 06/29/25 14:33 CT abd pelvis wo con Stat CT cervical spine wo con Stat CT chest diagnostic wo con Stat CT head/brain wo con Stat Pending Results Patient Have Any Pending Studies at Discharge: No Discharge Instructions Given to Patient (Per Discharging Provider) He had a serious infection from your pneumonia but you are recovering well. He will be given additional 5 days of antibiotics to continue after discharge. Total Time Total Time Spent Total Time Spent (In Minutes): I personally have spent greater than 30 minutes of time on the patient discharge today including review of tests, documentation, exam, and discussing treatment plan moving forward with the patient. Coding Level of Care Code 93790 INP/OBS DISCH >30 MIN Diagnoses Pneumonia J18.9 Laterality: unspecified laterality Lung location: unspecified part of lung Pneumonia type: due to unspecified organism CAD (coronary artery disease) I25.10 ESRD (end stage renal disease) on dialysis N18.6; Z99.2 Diabetes mellitus with insulin therapy E11.9; Z79.4 Memory loss R41.3
[2025-07-13] MEDS ORDERED: EPOETIN ALFA 10,000 UNITS/ML VIAL IV ONE (07:00)
[2025-07-13] MEDS ORDERED: SODIUM CHLORIDE 0.9% 1,000 ML IV PRN (07:00)
[2025-07-13] MEDS ORDERED: HEPARIN SOD (PORCINE) 1000 UNIT/ML IV ONE (07:00)
== END 2025-07-12 14:03 | DRG 871 ==
LOC: ED 14:07 → SUATTDRO 17:10 → 2E 17:10